=== PATIENT | female | born 1940 | race Caucasian/White ===

== ENCOUNTER 2017-05-07 21:31 | Emergency (ER) | payer MEDICARE, OTHER, SELFPAY ==
[2017-05-07 21:32] VITALS: BP 130/81; PULSE 99; RESP 15; TEMP 36.5; BMI 45.5
--- NOTE | 2017-05-07 21:55 | ED.DCSUM_ITS ---
- ER Visit Summary Date of Service: 05/07/17 Chief Complaint: Cyst on right shoulder History of Present Illness: The patient is a 76 F who has had a known cyst on her right trapezius region for over a year. Tonight she felt that and it was a blood blister on the dome of it. She scraped it and it opened up. She was concerned about infection so she came in. She has not had a fever. There is been no drainage up until tonight. She is scheduled to see a surgeon in the next week to remove these permanently. Physical Examination: Vital signs are reviewed. Patient afebrile. Skin exam reveals a 6 x 3 cm sebaceous cyst in the right trapezius region. There is a small 1 cm area that is ulcerated at the top of this cyst. There is a very small amount of erythema. The entire cyst is mobile. There is no induration. No fluctuance. Test Results: None indicated Emergency Department Course and Treatment: The patient has a known cyst in that area. There is only a small portion that may have been a blood blister area. No drainage is coming from it at this time. I do not feel that incising the entire cyst would be a good idea at this time. I will treat her with antibiotics in case there is a small amount of infection. She will need to follow-up with her surgeon to have these removed permanently. Treatment Plan: [] Disposition: Discharge Impression: Infected sebaceous cyst This note was generated with [employer] dictation software. It may contain incorrect words, spelling, and punctuation that were not noted in review of the chart prior to signing ED Disposition - Plan for ED Patient: Chief Complaint: Abscess Referrals: Alex Vizcarra MD [Primary Care Provider] -
--- NOTE | 2017-05-07 21:55 | ED.DEP ---
ED Disposition - Plan for ED Patient: Disposition: Home or Assisted Living Chief Complaint: Abscess Instructions: ED Cyst Sebaceous Infec Abx Tx Prescriptions: Smz/Tmp Ds [Bactrim Ds] 1 tab PO BID #14 tab Referrals: Alex Vizcarra MD [Primary Care Provider] -
[2017-05-07] MEDS: Smz/Tmp Ds Tablet 1 TABLET PO (22:20)
[2017-05-07 22:24] VITALS: BP 122/90; PULSE 89; RESP 20; O2SAT 94
== END 2017-05-07 22:25 | disposition home or self-care (01) ==
LOC: ED 22:02
PROVIDERS: Emergency Provider Emergency Medicine; Family Provider Family Medicine; PCP Family Medicine
DX: L72.3 Sebaceous cyst (principal); Z79.899 Other long term (current) drug therapy
CPT/HCPCS: 99283

== ENCOUNTER → 2017-05-10 11:30 | Outpatient (CLI) | payer MEDICARE, OTHER, SELFPAY ==
--- NOTE | 2017-05-10 11:10 | MASS_PTH ---
PATIENT: ASHLYN BLOUNT LOC: [facility] U#:[id number] AGE/SX: 84/F ROOM: RE05/10/[address]: Dr. Alberta Escobar MD : [id number] BED: DIS: SPEC #: [id number] RECD: 05/10/17 16:03 STATUS: DOUGLAS AMBROSIO #: [id number] ANDREIA: 05/10/17 11:[address]: Alberta Escobar DEPT: SURGICAL PATHOLOGY RECD BY: Joey Lanier ENTERED: 05/11/17 10:57 SP TYPE: Mass OTHR DR: Dr. Alex Vizcarra MD Tissues: Shoulder, NOS Procedures: Surgery Specimen Level IV Comments: @ Specimen number changed from [id number] to [id number] @ on 05/11/17 at 1125 by ZOEY. HEADER OPERATION: Biopsy mass of right trapezius PRE-OP DIAGNOSIS: History metastatic breast cancer, mass overlying trapezius TISSUE SUBMITTED: Mass of right trapezius MICROSCOPIC DIAGNOSIS Mass of right trapezius, biopsy: Pieces of fibroconnective tissue with necrosis, may represent necrotic tumor cells. No viable tumor is identified. TERRA:laura 05/12/17 COMMENT Clinical correlation and appropriate follow up are necessary, rebiopsy is suggested if clinically indicated. Please make reference to previous specimen ([id number]) right breast, stereotactic core biopsy with diagnosis of invasive ductal carcinoma and ([id number]) right breast tissue, needle localization biopsy with diagnosis of invasive ductal carcinoma. This case is discussed with Dr. Escobar on 05/12/17. MICROSCOPIC DESCRIPTION Slides are reviewed. GROSS DESCRIPTION Received in fixative is one container labeled with the patient's name and designated right shoulder mass. The specimen consists of three irregular fragments of ritchie tissue that in aggregate measure 1 x 0.3 x 0.1 cm. The specimen is totally submitted in one cassette. / AM:laura 05/11/17 TC: Cannot code CPT: 77909
== END ==
PROVIDERS: Family Provider Family Medicine; PCP Family Medicine; Visit Provider Surgery
DX: R22.2 Localized swelling, mass and lump, trunk (principal); Z85.3 Personal history of malignant neoplasm of breast
CPT/HCPCS: 88305

== ENCOUNTER → 2017-05-18 08:55 | Outpatient (CLI) | payer MEDICARE, OTHER, SELFPAY ==
--- NOTE | 2017-05-18 09:01 | ECHOD_ITS ---
Reason For Study: long term care pharmacist drug therapy Procedure This was a 2D Doppler, Color Flow transthoracic echocardiogram. Exam performed in department. Left Ventricle Normal LV size. Mild concentric left ventricular hypertrophy. The estimated ejection fraction is 50 %. Transmitral and pulmonary venous doppler flow suggestive of elevated left atrial pressure. Transmitral diastolic flow velocities suggest mild (stage 1) diastolic dysfunction (reversed pattern). No regional wall motion abnormalities noted. Right Ventricle Normal RV size. Normal systolic function. Atria The left atrium is mildly enlarged. Normal right atrium. Mitral Valve Normal mitral valve. Mild-Moderate (1-2+) eccentric mitral valve insufficiency. Tricuspid Valve Normal tricuspid valve. Mild to moderate (1-2+) tricuspid valve insufficiency. Pulmonary artery systolic pressure is 47 mmHg. Mild pulmonary hypertension. Aortic Valve Normal aortic valve. Pulmonic Valve Normal pulmonic valve. Great Vessels Normal aortic root. The pulmonary artery is normal size. Normal inferior vena cava. Pericardium/Pleural No pericardial effusion. MMode/2D Measurements & Calculations LVIDd: 5.0 cm IVSd: 1.3 cm Ao root diam: 2.6 cm LVIDs: 3.5 cm LVPWd: 1.2 cm LA dimension: 4.2 cm RVDd: 3.3 cm FS: 31.0 % LAV(MOD-bp): 72.0 ml LA A4 area: 22.9 cm2 RA A4 area: 12.4 cm2 LAV(MOD-bp) Indexed: 32.1 ml/m2 LAV(MOD-sp2): 62.6 ml LAV(MOD-sp4): 67.7 ml Time Measurements MV dec time: 0.19 sec Doppler Measurements & Calculations MV E max mars: 89.0 cm/sec Lat Peak E' Mars: 9.4 cm/sec Med Peak E' Mars: 7.4 cm/sec MV A max mars: 111.1 cm/sec E/E' lat: 9.5 E/E' med: 12.1 MV E/A: 0.80 Ao V2 max: 157.1 cm/sec LV V1 max: 110.2 cm/sec PA V2 max: 86.1 cm/sec Ao max P.9 mmHg LV V1 max P.9 mmHg TR max mars: 324.5 cm/sec TR max P.2 mmHg Interpretation Summary Normal LV size. Mild concentric left ventricular hypertrophy. The estimated ejection fraction is 50 %. Pulmonary artery systolic pressure is 47 mmHg. Mild pulmonary hypertension. Compared to prior study, there is no significant change. Ordering Physician: Ruby Saenz Referring Physician: Alex Vizcarra Performed By: Gaye Ramey RDCS, RVT
== END ==
PROVIDERS: Family Provider Family Medicine; PCP Family Medicine; Visit Provider Nurse Practitioner Family
DX: Z51.81 Encounter for therapeutic drug level monitoring (principal); Z79.899 Other long term (current) drug therapy
CPT/HCPCS: 93306

== ENCOUNTER 2017-05-19 09:34 | Outpatient (RCR) | payer MEDICARE, OTHER, SELFPAY ==
[2017-05-19 10:47] VITALS: BP 142/76; PULSE 86; RESP 20; TEMP 37.2; BMI 96.6
--- NOTE | 2017-05-19 18:18 | HP.PCM_ITS ---
(1) Abnormal surgical wound Status: Acute Current Visit: Yes Code(s): T81.9XXA - Unspecified complication of procedure, initial encounter (2) Personal history of malignant neoplasm of breast Status: Acute Current Visit: No Code(s): Z85.3 - Personal history of malignant neoplasm of breast (3) Breast cancer, right breast Status: Chronic Current Visit: No Qualifiers: Code(s): C50.911 - Malignant neoplasm of unspecified site of right female breast (4) Secondary malignant neoplasm of lung Status: Chronic Current Visit: No Qualifiers: Code(s): C78.00 - Secondary malignant neoplasm of unspecified lung History of Present Illness Date of Service: 05/19/17 Chief Complaint: Anticipated poor healing of a surgical wound due to co existing malignancy. History of Wound: Ms. Brasher is a 77yo with H metastatic breast cancer who was referred to the wound center by her general surgeon for continued wound care. On the May, she was seen in the general surgeon's office and plan was for an I&D of a right-sided neck mass which was initially thought to be a sebaceous cyst however it was later considered to be a malignant mass and a biopsy was attempted. Due to the positive malignancy and biopsy, she was referred to the wound center for wound care due to anticipated poor/nonhealing of the wound. She denies any significant discharge from the site. She also denies chills or fever. She is currently undergoing chemotherapy. 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) Peripheral edema (Chronic) Chronic pain (Chronic) Surgical History: cholecystectomy, hysterectomy, - - Right breast lumpectomy, left foot surgery, right knee arthroscopy Allergies/Adverse Reactions: Allergies Latex, Natural Rubber Allergy (Severe, Verified 05/19/17 11:12) Hives POWDER inside the latex that causes reaction, not the latex itself aloe vera Adverse Reaction (Severe, Verified 05/19/17 11:12) Rash egg Adverse Reaction (Severe, Verified 05/19/17 11:12) Diarrhea hydrocodone bitartrate [From Vicodin] Adverse Reaction (Severe, Verified 11:12) Vomiting morphine Adverse Reaction (Severe, Verified 05/19/17 11:12) Other DECREASED BP TAPE Adverse Reaction (Mild, Uncoded 04/13/17 08:47) redness THIN SKIN Home Medications: Ambulatory Orders Medication Instructions Recorded ALPRAZolam [Xanax] 0.125 mg PO BID PRN PRN 08/17/16 Trastuzumab [Herceptin] 150 mg IV Q21D 08/17/16 Acetaminophen [Tylenol] 650 mg PO QHS PRN 11/17/16 Albuterol Inhaler [Ventolin Hfa] 1 puff INHALATION Q4H PRN PRN 01/19/17 Lactobacillus Combination No.4 1 ea PO DAILY 01/19/17 [Probiotic] Multivitamin [Multiple Vitamins] 1 tab PO DAILY 01/19/17 Exemestane [Aromasin] 25 mg PO DAILY #30 tab 01/31/17 Naproxen Sodium [Aleve] 1 tab PO DAILY PRN 03/02/17 Smoking Status: Never smoker Review of Systems Constitutional: Denies: Chills, Fever Eyes: Denies: Pain, Redness HEENT: Denies: Difficulty Hearing Cardiovascular: Denies: Chest Pain, Chest Tightness Respiratory: Denies: Cough, Hemoptysis Gastrointestinal: Denies: Abdominal Pain Skin: Denies: Jaundice - Physical Exam Vital Signs Temp Pulse Resp BP 98.9 F 86 20 H 142/76 H 05/19/17 10:47 05/19/17 10:47 05/19/17 10:47 05/19/17 10:47 General: Alert, Oriented x3, Cooperative, No apparent distress HEENT: Atraumatic, Normocephalic Oral: Moist Mucosa Neck: Supple Lungs: Normal air movement Cardiovascular: Regular rate Abdomen: Soft, Non Tender Extremities: No cyanosis Skin: Ulcer/ Wound - A 6x5cm firm mass in the right upper shoulder/trapezius. Mobile. Surgical wound noted with no significant discharge appreciated. Wound Measurements and Assessment WC - Nurse 1 - General Ulcer Measurement Start: 05/19/17 10:35 Freq: Status: Active Protocol: Activity Type Activity Date Activity User E-Sign Co-Sign Detail Recorded Client Recorded Date Recorded By Document 05/19/17 10:47 DL [id number] 05/19/17 11:07 DL 05/19/17 10:47 Wound Center Nurse 1 [Ulcer Assessment] #1 R Shoulder -Current Size (cm) - Length 0.6 -Current Size (cm) - Width 0.7 -Current Size (cm) - Depth 0.6 -Total Square Cm 0.42 -Photo Taken Yes -Epithelialization None Present -Classification - Thickness Full Thickness without Exposed Support Structure -Exudate Amt Small (1-33%) -Exudate Type Serosanguineous -Wound Margin Distinct, Outline Attached -Granulation Amt Small (1-33%) -Granulation Quality [place] -Necrosis Amt Small (1-33%) -Necrotic Tissue Type Adherent Slough -Structure Exposed N/A -Texture (Ritu-wound Skin Appearance) No Abnormality -Moisture (Ritu-wound Skin Appearance No Abnormality ) -Color (Ritu-wound Skin Appearance) No Abnormality -Temperature (Ritu-wound Skin No Abnormality Appearance) (Pt Warm) -Ulcer Cleansing Rinsed/ Irrigated with Saline -Foul Odor after Cleansing No -Anesthetic Used 4% Lidocaine Solution WC - Nurse 2 - General Ulcer CM Notes Start: 05/19/17 10:35 Freq: Status: Active Protocol: Activity Type Activity Date Activity User E-Sign Co-Sign Detail Recorded Client Recorded Date Recorded By Document 05/19/17 11:41 DV [id number] 05/19/17 11:46 DV 05/19/17 11:41 Wound Center Nurse 2 [Procedure/Treatment] -Time 11:42 -Correct Patient Yes -Correct Side, Site, Position Yes -Procedure Performed No -Post Debridement Size (cm) - Length 0.6 -Post Debridement Size (cm) - Width 0.7 -Post Debridement Size (cm) - Depth 0.6 -Total Square Cm 0.42 -Wound/Ulcer Outcome Not Healed -Ulcer Cleansing Rinsed/ Irrigated with Saline -Foul Odor after Cleansing No -Bioengineered Tissue No -Bleeding Controlled with Pressure -Treatment Response Procedure Tolerated Well [See Physician Procedure note for Specifics] Pain Scale: 0-10 Numeric [Pain] -Is Patient Pain Free? Yes Musculoskeletal: No Muscle Wasting Neurological: Cranial nerves II-XII grossly intact Psych/Mental Status: Normal Affect Debridement Note Post-Debridement Measurements/Treatment WC - Nurse 2 - General Ulcer CM Notes Start: 05/19/17 10:35 Freq: Status: Active Protocol: Activity Type Activity Date Activity User E-Sign Co-Sign Detail Recorded Client Recorded Date Recorded By Document 05/19/17 11:41 DV [id number] 05/19/17 11:46 DV 05/19/17 11:41 Wound Center Nurse 2 #1 R Shoulder -Time 11:42 -Correct Patient Yes -Correct Side, Site, Position Yes -Procedure Performed No -Post Debridement Size (cm) - Length 0.6 -Post Debridement Size (cm) - Width 0.7 -Post Debridement Size (cm) - Depth 0.6 -Total Square Cm 0.42 -Wound/Ulcer Outcome Not Healed -Ulcer Cleansing Rinsed/ Irrigated with Saline -Foul Odor after Cleansing No -Bioengineered Tissue No -Bleeding Controlled with Pressure -Treatment Response Procedure Tolerated Well Pain Scale: 0-10 Numeric Is Patient Pain Free? Yes No debridement was completed today Assessment/Plan Active Problems (Last Reviewed 05/10/17 @ 10:30 by Gwen Walton) Abnormal surgical wound (Acute) Assessment: Metastatic breast cancer. Malignant posterior neck/trapezius months mass s/p biopsy and surgical wound. Anticipated poor/nonhealing surgical wound. Plan: No debridement of wound was done today due to the malignant nature. Also no probing or manipulation of tumor was done. Reviewed general surgeon's note and concern is for none/delayed healing of the wound due to malignancy. Conservative wound care will be done here with daily dressing with Fibracol. If no significant improvement with traditional wound therapies, will consider HBO/skin substitutes. Increase protein in diet/protein supplements. Follow-up in 1 week. This note was generated with [employer] dictation software. It may contain incorrect words, spelling, and punctuation that were not noted in checking the note before signing.
== END 2017-06-04 23:59 ==
LOC: WC 09:34
PROVIDERS: Family Provider Family Medicine; PCP Family Medicine; Visit Provider Internal Medicine
DX: T81.89XA Other complications of procedures, not elsewhere classified, initial encounter (principal); Z85.3 Personal history of malignant neoplasm of breast; C78.00 Secondary malignant neoplasm of unspecified lung; G89.29 Other chronic pain; Z79.899 Other long term (current) drug therapy
CPT/HCPCS: 99213; G0463

== ENCOUNTER → 2017-06-09 09:48 | Outpatient (CLI) | payer MEDICARE, OTHER, SELFPAY ==
--- NOTE | 2017-06-09 09:49 | CT_ITS ---
STUDY: CT CHEST WITH CONTRAST REASON FOR EXAM: Female, 77 years old. History of B cell lymphoma, and metastatic disease. Reevaluation. RADIATION DOSAGE (If Supplied By Facility): CTDIvol = ( 21.09 ) mGy, DLP = ( 2183.95 ) mGycm TECHNIQUE: Transaxial imaging was performed following intravenous administration of 100CC ml of Isovue 300 contrast material. Individualized dose optimization techniques were used for this CT. COMPARISON: 01/14/2017 FINDINGS: Stable heterogeneous thyroid. Lungs are adequately inflated. Increased size of all pulmonary nodules seen within the left and right lung. Increased size of left upper lobe nodule, now measuring 2 x 1.2 cm. Increased size of right middle lobe nodule, now measuring 2 x 1.8 cm. No acute airspace disease is noted. Increased size of right lower lobe nodules. Increased size of mass posterior to the heart in the medial left lower lobe. Normal heart and pericardium. Normal mediastinum. Normal hilar regions. Normal enhanced pulmonary arteries. Normal aorta arch and descending thoracic aorta. There are multi-level degenerative changes of the thoracic spine. Increased size of spiculated right breast mass now measuring 3.[address]/Chest WITH Contrast IMPRESSION: Increased size of all pulmonary nodules within the chest suggesting worsening metastatic disease. Increased size of mass behind the heart in the medial left lower lobe. Increased size of right breast mass with spiculation. No acute airspace disease. Electronically Signed: Moises Maria DO at 10:26 EDT Tel , Service support ,
--- NOTE | 2017-06-09 09:49 | CT_ITS ---
STUDY: CT ABDOMEN WITH CONTRAST REASON FOR EXAM: Female, 77 years old. History of B cell lymphoma. Reevaluation. RADIATION DOSAGE (If Supplied By Facility): CTDIvol = ( 21.09 ) mGy, DLP = ( 2183.95 ) mGycm TECHNIQUE: Transaxial images were obtained post I.V. administration of 100CC ml of Isovue 300 contrast, and without oral contrast. Sagittal and coronal images were reconstructed. Individualized dose optimization techniques were used for this CT. COMPARISON: 01/14/2017 FINDINGS: Soft tissue nodule spiculation in the anterior right lobe measuring 1.7 x 1.8 cm. Multiple other right-sided nodules are noted. Increased size of mass posterior to the level of the heart,, likely from the esophagus measuring 7.3 x 4.7 cm. Stable hypodense nonenhancing cyst in the posterior right lobe liver, otherwise liver is within normal limits. There are surgical clips in the gallbladder fossa consistent with a prior cholecystectomy. Normal spleen. Normal pancreas. Normal bilateral adrenal glands. Normal right kidney. Normal left kidney. Visualized small and large bowel is within normal limits. Normal abdominal aorta. Normal inferior vena cava. Normal retroperitoneum. Normal abdominal wall. There are diffuse degenerative changes of the visualized lumbar spine. CT/Abdomen WITH IV Contrast IMPRESSION: 1. Multiple right lower lobe pulmonary nodules, suspicious for metastatic disease 2. Increased size of mass in the medial aspect of the left lower lobe, probably emanating from the esophageal wall. 3. Visualized upper abdomen is within normal limits otherwise. Electronically Signed: Moises Maria DO at 10:23 EDT Tel , Service support ,
--- NOTE | 2017-06-09 09:50 | CT_ITS ---
STUDY: CT SOFT TISSUE NECK WITH CONTRAST REASON FOR EXAM: Female, 77 years old. MULTIPLE POST NECK MASS -- HX-LARGE B CELL LYMPHOMA,LUNG METS,BREAST -- CURRENTLY ON MAINTENANCE CHEMO -- SURG-cholecystectomy, hysterectomy, right lumpectomy, x 3, appendectomy-. RADIATION DOSAGE (If Supplied By Facility): CTDIvol = ( 21.09 ) mGy, DLP = ( 2183.95 ) mGycm TECHNIQUE: The patient was scanned in a multi-detector CT scanner. High resolution transaxial imaging was performed following intravenous administration of 100CC ml of Isovue 300 contrast material. Sagittal and coronal images were reconstructed. Individualized dose optimization techniques were used for this CT. COMPARISON: PET scan dated January 14, 2017 FINDINGS: Normal bilateral parotid glands. Normal bilateral link trainer maintenance man spaces. Normal bilateral parapharyngeal spaces. Normal bilateral carotid spaces. Normal bilateral sublingual and submandibular glands and spaces. Normal visualized nasopharynx. Normal retropharyngeal space. Normal perivertebral space. Normal visualized bilateral faucial tonsils. The visualized tongue, tongue base and oropharynx are normal. The visualized cervical lymph nodes (levels I-) are within normal size limits, and maintain normal morphology. There is no demonstrated solid or cystic mass lesion. There is no abnormal contrast enhancement. Normal epiglottis, bilateral vallecula and hypopharynx. The pre-epiglottic and paraglottic adipose spaces are normal. Normal visualized bilateral piriform sinuses, aryepiglottic folds, vocal cords, and arytenoid-cricoid articulations. Normal subglottic trachea. There are bilateral thyroid nodules. Normal visualized pulmonary apices. There is multilevel degenerative changes of the cervical spine. There are 2 posterior lower neck soft tissue masses measuring 4.1 x 4.3 and 3.5 x 2.7 cm. Previously there was only one 2.6 cm nodule in this region. CT/Soft Tissue Neck WITH Contrast IMPRESSION: Interval increase of posterior lower neck soft tissue masses. Electronically Signed: Steff Henry MD at 8:02 EDT Tel , Service support ,
== END ==
PROVIDERS: Family Provider Family Medicine; PCP Family Medicine; Visit Provider Internal Medicine Medical Oncology
DX: C50.911 Malignant neoplasm of unspecified site of right female breast (principal); C78.00 Secondary malignant neoplasm of unspecified lung; C85.90 Non-Hodgkin lymphoma, unspecified, unspecified site
CPT/HCPCS: 70491; 71260; 74160; Q9967

== ENCOUNTER → 2017-06-16 07:17 | Outpatient (CLI) | payer MEDICARE, OTHER, SELFPAY ==
--- NOTE | 2017-06-16 07:22 | CT_ITS ---
STUDY: CT BRAIN WITH AND WITHOUT CONTRAST REASON FOR EXAM: Female, 77 years old. New onset of right arm numbness and weakness. The patient has a history of breast cancer and large B-cell lymphoma. RADIATION DOSAGE (If Supplied By Facility): CTDIvol = ( 44.99 ) mGy, DLP = ( 1479.73 ) mGycm TECHNIQUE: Transaxial CT imaging of the brain was performed pre and post contrast administration. The examination was performed with intravenous administration of 50mL ml of Isovue 370 contrast material. Individualized dose optimization techniques were used for this CT. COMPARISON: None. FINDINGS: Normal soft tissue structures. Normal calvarium. Normal size ventricles and extra-axial spaces for the patient's age. There is a 3.3 cm x 3.5 cm x 3.4 cm enhancing mass in the posterior left parietal lobe adjacent to the vertex. There is evidence of surrounding vasogenic edema with mass effect and compression of the posterior aspect of the left lateral ventricle. This is suggestive of a metastatic deposit. Normal basal ganglia and thalami. Normal brainstem. Normal cerebellum. There is no intracranial hemorrhage. There are no findings of an acute ischemic infarction. Atherosclerotic calcification of the vertebral arteries and cavernous portions of the internal carotid arteries bilaterally. Normal visualized paranasal sinuses. CT/Brain/Head W/WO Contrast IMPRESSION: 3.3 cm x 3.5 cm x 3.4 cm enhancing mass in the posterior left parietal lobe adjacent to the vertex with surrounding vasogenic edema. There is also evidence of a surrounding mass effect on the ipsilateral left ventricle. A metastatic deposit should be ruled out. Electronically Signed: Santos Ibarra MD at 8:55 EDT Tel [phone], Service support ,
== END ==
PROVIDERS: Family Provider Family Medicine; PCP Family Medicine; Visit Provider Internal Medicine Medical Oncology
DX: C85.90 Non-Hodgkin lymphoma, unspecified, unspecified site (principal); C50.911 Malignant neoplasm of unspecified site of right female breast; C78.00 Secondary malignant neoplasm of unspecified lung
CPT/HCPCS: 70470; Q9967

== ENCOUNTER → 2017-06-20 08:02 | Outpatient (CLI) | payer MEDICARE, OTHER, SELFPAY ==
--- NOTE | 2017-06-20 08:12 | MRI_ITS ---
STUDY: MRI BRAIN WITH AND WITHOUT CONTRAST REASON FOR EXAM: Female, 77 years old. malignant neoplasm of brain,breast ca, B cell lymphoma; dizziness, rt arm weakness, difficulty writing. TECHNIQUE: Standardized multiplanar fat and water weighted pulse sequences were obtained. 10 ml of Gadavist contrast material was administered intravenously for the contrast portion of the examination. COMPARISON: CT of the head dated June 16, 2017 FINDINGS: There is 4.0 x 3.5 x 3.2 cm extra-axial enhancing mass along the high left parietal convexity with mass effect on the underlying brain parenchyma and vasogenic edema. There is mild compression of the lateral ventricle. Normal bilateral basal ganglia. Normal thalami. There is no extra-axial fluid accumulation. Normal flow voids within the major intracranial circulation suggesting patency by spin echo criteria. Normal sella turcica, pituitary gland, infundibular stalk, optic chiasm and hypothalamus. Normal tectal plate and pineal gland. Normal midbrain, chance and medulla. Normal cerebellum. Normal basal cisterns. Normal bilateral temporal bones. Normal bilateral internal auditory canals. MRI/Brain W/WO Contrast IMPRESSION: 4 cm left parietal extra-axial mass with edema and mass effect. Leading differential consideration are metastatic disease and atypical meningioma. Electronically Signed: Steff Henry MD at 12:53 EDT Tel , Service support ,
== END ==
PROVIDERS: Family Provider Family Medicine; PCP Family Medicine; Visit Provider Internal Medicine Medical Oncology
DX: C79.31 Secondary malignant neoplasm of brain (principal)
CPT/HCPCS: 70553; A9585

== ENCOUNTER → 2017-09-14 12:20 | Outpatient (CLI) | payer MEDICARE, OTHER, SELFPAY ==
[2017-06-21 09:20] VITALS: BMI 42.3
--- NOTE | 2017-09-14 12:26 | RAD_ITS ---
STUDY: X-RAY CHEST REASON FOR EXAM: Female, 77 years old. Shortness of breath TECHNIQUE: Frontal and lateral views of the chest. COMPARISON: January 06, 2017 FINDINGS: Increasing nodular density left upper lobe and left lower lobe. There is no demonstrated pleural abnormality. Normal size heart. Normal mediastinum and asim. Normal visualized pulmonary arteries. Normal visualized aortic arch and descending thoracic aorta. Normal visualized thoracic spine. Normal visualized ribs, clavicles, and shoulders. There is no demonstrated abnormality of the visualized soft tissue structures of the upper abdomen. RAD/Chest PA and Lateral IMPRESSION: Increasing nodular densities consistent with metastatic disease. Electronically Signed: Cristo Perez MD at 0:57 EDT , Service support ,
[2017-09-14 14:27] LABS: Hematocrit 27.7 % (37-47); Mean Corp Hgb Conc 32.5 g/gl (32-36); Mean Corpuscular Hgb 37.5 pg (27.0-32.0); Mean Corpuscular Volume 115.4 fL (81-99); Mean Platelet Vol. 11.8 fl (6.2-12.0); Platelet Count 268 K/mm3 (150-450); RBC Distribution Width CV 16.4 % (11.6-14.6); White Blood Count 2.3 K/mm3 (4.4-11.0)
[2017-09-14 14:31] LABS: Differential Indicated MANUAL DIFF; POSITIVE COUNT YES; POSITIVE DIFFERENTIAL YES; POSITIVE MORPHOLOGY YES
[2017-09-14 14:35] LABS: Anion Gap 9 (5-15); BUN 11 mg/dL (7-18); BUN/Creat Ratio 19.2 RATIO (10-20); Calcium,Total 9.3 mg/dL (8.5-10.1); Chloride 106 mmol/L (98-107); Creatinine, Serum 0.57 mg/dL (0.55-1.02); EST Glomerular Filtration Rate 109 mL/min (>60); Est Glom Filt Rate - Afr Amer 132 mL/min (>60); Glucose 99 mg/dL (74-106); Potassium 3.8 mmol/L (3.5-5.1); Sodium Level 139 mmol/L (136-145)
[2017-09-14 14:59] LABS: Metamyelocyte 1 % (0-1); Myelocyte 4 (0-0); Neutrophil-Segmented 24 % (47-70); Promyelocyte 2 (0-0); Total Cells Counted 100 (MANUAL DIFF)
[2017-09-14 15:00] LABS: Anisocytosis 1+; Eosinophil 1 % (0-5); Lymphocyte 58 % (19-41); Monocyte 10 % (0-10); Platelet Estimate ADEQUATE (ADEQ)
[2017-09-14 15:08] LABS: Absolute Lymphocyte Count 1.33 X10^3/ul (0.83-4.51); Absolute Neutrophil Count 0.6 X10^3/uL (2.0-7.7)
[2017-09-16 10:41] LABS: Pathologist Review Reviewed
== END ==
PROVIDERS: Family Provider Family Medicine; PCP Family Medicine; Visit Provider Family Medicine
DX: D64.9 Anemia, unspecified (principal); R06.02 Shortness of breath
CPT/HCPCS: 36415; 71046; 80048; 85025

== ENCOUNTER → 2017-09-23 09:58 | Outpatient (CLI) | payer MEDICARE, OTHER, SELFPAY ==
[2017-06-21 09:20] VITALS: BMI 42.3
--- NOTE | 2017-09-23 10:04 | ECHOD_ITS ---
Reason For Study: SOB, care home med use Procedure This was a 2D Doppler, Color Flow transthoracic echocardiogram. Exam performed in department. Left Ventricle Normal size and thickness. The estimated ejection fraction is 65 %. Normal diastology for age. No regional wall motion abnormalities noted. Right Ventricle Normal size and thickness. Normal systolic function. Atria Normal left atrium. Normal right atrium. Normal atrial septum. Mitral Valve The mitral valve is structurally normal. No prolapse or stenosis seen. Trivial mitral valve insufficiency. Tricuspid Valve Normal tricuspid valve. Trivial tricuspid valve insufficiency. Right ventricular systolic pressure estimated to be 31 mmHg. Aortic Valve Normal aortic valve. Trisinus/trileaflet aortic valve. Pulmonic Valve The pulmonic valve is not well visualized. Great Vessels Normal aortic root. Normal arch. Normal inferior vena cava. Inferior vena cava collapse with sniff. Pericardium/Pleural No pericardial effusion. MMode/2D Measurements & Calculations LVIDd: 4.2 cm IVSd: 1.3 cm LVOT diam: 2.0 cm LVIDs: 2.9 cm LVPWd: 1.1 cm LVOT area: 3.1 cm2 RVDd: 3.8 cm FS: 30.6 % Ao root diam: 3.0 cm LAV(MOD-bp): 55.3 ml LVAd ap4: 31.6 cm2 LA dimension: 3.1 cm LAV(MOD-bp) Indexed: 28.3 ml/m2 EDV(MOD-sp4): 105.2 ml LAV(MOD-sp2): 37.6 ml EDV(sp4-el): 110.1 ml LAV(MOD-sp4): 63.0 ml LVAs ap4: 20.1 cm2 ESV(MOD-sp4): 52.5 ml ESV(sp4-el): 51.3 ml EF(MOD-sp4): 50.1 % EF(sp4-el): 53.4 % SV(MOD-sp4): 52.7 ml SV(sp4-el): 58.8 ml LA A4 area: 21.6 cm2 RA A4 area: 16.4 cm2 Doppler Measurements & Calculations Lat Peak E' Mars: 12.0 cm/sec Ao V2 max: 230.1 cm/sec LV V1 max: 170.1 cm/sec Ao max P.2 mmHg LV V1 max P.6 mmHg Ao V2 mean: 148.4 cm/sec LV V1 mean P.3 mmHg Ao mean P.0 mmHg LV V1 mean: 107.1 cm/sec Ao V2 VTI: 37.1 cm LV V1 VTI: 28.3 cm GEORGE(I,D): 2.4 cm2 GEORGE(V,D): 2.3 cm2 SV(LVOT): 87.5 ml PA V2 max: 122.1 cm/sec TR max mars: 253.6 cm/sec TR max P.7 mmHg Interpretation Summary The estimated ejection fraction is 65 %. Normal diastology for age. Trivial mitral valve insufficiency. Right ventricular systolic pressure estimated to be 31 mmHg. Compared to echo report dated 05/18/2017, LV function has improved from 50% to 65%, and RVSP has imiproved from 47 go 31 mm Hg. The study was technically difficult. Ordering Physician: Ciaran Brock Referring Physician: Ciaran Brock Performed By: Italo Shaw RCS
[2017-09-23 11:19] VITALS: PULSE 105; PULSE 109; PULSE 123; PULSE 124; PULSE 125; PULSE 131; PULSE 132; O2SAT 95; O2SAT 96; O2SAT 97; O2SAT 98
--- NOTE | 2017-09-23 11:23 | CPS ---
Patient stated that this was a better breathing day for her. She seemed pretty short of breath when she stopped to take breaks but described it as moderate compared to how short of breath she is on most days.
--- NOTE | 2017-09-24 07:42 | WT_ITS ---
PSN 6 Minute Walk Test - 6 Minute Walk Test 6 Minute Walk Test: 6 Minute Walk Test PSN:6-Minute Walk Test Start: 09/23/17 11: 18 Freq: Status: Active Protocol: [id number] Document 09/23/17 11:19 JEN (Rec: 09/23/17 11:26 JEN [id number]) 6 Minute Walk Test Date Performed 09/23/17 Time Performed 11:00 Height 5 ft 1 in Weight: 223 lb Weight in Pounds 223.[address]: Ciaran Brock Assistive device used: Walker Pre-test Oxygen Delivery Method Room Air Pulse Ox (%) 95 Pulse Rate (60-100 beats/min) 105 H Dyspnea Ronnie Scale (0-10) 0 Exertion Ronnie Scale (6-20) 6 1st minute Oxygen Delivery Method Room Air Pulse Ox (%) 97 Pulse Rate (60-100 beats/min) 123 H 2nd minute Oxygen Delivery Method Room Air Pulse Ox (%) 97 Pulse Rate (60-100 beats/min) 131 H Dyspnea Ronnie Scale (0-10) 3 Number of Rests Taken 1 3rd minute Oxygen Delivery Method Room Air Pulse Ox (%) 95 Pulse Rate (60-100 beats/min) 124 H 4th minute Oxygen Delivery Method Room Air Pulse Ox (%) 95 Pulse Rate (60-100 beats/min) 125 H 5th minute Oxygen Delivery Method Room Air Pulse Ox (%) 95 Pulse Rate (60-100 beats/min) 131 H Number of Rests Taken 1 6th minute Oxygen Delivery Method Room Air Pulse Ox (%) 96 Pulse Rate (60-100 beats/min) 132 H Dyspnea Ronnie Scale (0-10) 3 Exertion Ronnie Scale (6-20) 14 Post-test Oxygen Delivery Method Room Air Pulse Ox (%) 98 Pulse Rate (60-100 beats/min) 109 H Full Laps Walked 6 Partial Lap, Number of Tiles Walked 5 Total Distance Walked (ft) 359 09/23/17 11:23 Cardiopulmonary Services by Barbara Garg Patient stated that this was a better breathing day for her. She seemed pretty short of breath when she stopped to take breaks but described it as moderate compared to how short of breath she is on most days. Initialized on 09/23/17 11:23 - END OF NOTE - Interpretation Interpretation: The patient ambulated 359 feet over the course of 6 minutes beginning on room air with the use of a walker. Pretesting oxygen saturation was noted to be 95% on room air. With ambulation, the virgilio oxygen saturation was 95%. The patient did become progressively tachycardic with exertion. There was evidence of impaired walk distance without significant exertional oxygen desaturation. - Recommendations Recommendations: There is no indication for the use of supplemental oxygen at this time.
== END ==
PROVIDERS: Family Provider Family Medicine; PCP Family Medicine; Visit Provider Internal Medicine Medical Oncology
DX: R06.02 Shortness of breath (principal); C50.911 Malignant neoplasm of unspecified site of right female breast; C78.00 Secondary malignant neoplasm of unspecified lung; C79.31 Secondary malignant neoplasm of brain
CPT/HCPCS: 93306; 94618

== ENCOUNTER → 2017-10-11 08:30 | Outpatient (CLI) | payer MEDICARE, OTHER, SELFPAY ==
[2017-06-21 09:20] VITALS: BMI 42.3
== END ==
PROVIDERS: Family Provider Family Medicine; PCP Family Medicine; Visit Provider Surgery
DX: Z53.9 Procedure and treatment not carried out, unspecified reason (principal)

== ENCOUNTER 2017-10-23 10:45 | Inpatient (IN) | payer MEDICARE, OTHER, SELFPAY ==
[2017-06-21 09:20] VITALS: BMI 42.3
[2017-10-23] VITALS (21 sets, daily range): BP systolic 114–147; BP diastolic 43–86; PULSE 100–141; RESP 10–34; TEMP 36.7–37.6; O2SAT 89–100; BMI 44.6
[2017-10-23] MEDS: oxyCODONE 5 MG Tablet PO ×3 (11:27→18:52)
[2017-10-23 11:32] LABS: Hematocrit 25.3 % (37-47); Hemoglobin 8.2 g/dl (12.0-15.0); Mean Corp Hgb Conc 32.4 g/gl (32-36); Mean Corpuscular Hgb 36.8 pg (27.0-32.0); Mean Corpuscular Volume 113.5 fL (81-99); Mean Platelet Vol. 12.1 fl (6.2-12.0); Platelet Count 302 K/mm3 (150-450); RBC Distribution Width CV 16.6 % (11.6-14.6); RBC Distribution Width SD 67.5 fl (35.1-43.9); Red Blood Count 2.23 M/mm3 (4.2-5.4); White Blood Count 3.4 K/mm3 (4.4-11.0)
[2017-10-23 11:33] LABS: Differential Indicated MANUAL DIFF; International Normalized Ratio 1.5; POSITIVE COUNT NO; POSITIVE DIFFERENTIAL NO; POSITIVE MORPHOLOGY YES; Partial Thromboplast Time 28.1 Seconds (24.1-36.2); Prothrombin Time (Protime)PT. 17.9 SECONDS (11.7-14.9)
[2017-10-23 11:41] LABS: AST(SGOT) 165 U/L (15-37); Alanine Aminotransfer ALT/SGPT 472 U/L (13-56); Albumin, Serum 3.6 g/dL (3.2-5.0); Alkaline Phosphatase 47 U/L (45-117); Anion Gap 6 (5-15); BUN 16 mg/dL (7-18); BUN/Creat Ratio 23.3 RATIO (10-20); Calcium,Total 8.8 mg/dL (8.5-10.1); Chloride 103 mmol/L (98-107); Creatinine, Serum 0.69 mg/dL (0.55-1.02); EST Glomerular Filtration Rate 89 mL/min (>60); Est Glom Filt Rate - Afr Amer 107 mL/min (>60); Estimated Creatinine Clearance 34.91 ml/min; Globulin 3.6 g/dL (2.2-4.2); Glucose 151 mg/dL (74-106); Potassium 3.4 mmol/L (3.5-5.1); Protein, Total 7.2 g/dL (6.4-8.2); Sodium Level 138 mmol/L (136-145)
[2017-10-23 11:52] LABS: Blast 1 % (0-0); Lymphocyte 43 % (19-41); Metamyelocyte 4 % (0-1); Myelocyte 3 (0-0); Neutrophil-Band 4 % (0-5); Neutrophil-Segmented 45 % (47-70); Platelet Estimate ADEQUATE (ADEQ); Total Cells Counted 100 (MANUAL DIFF)
[2017-10-23 11:53] LABS: Anisocytosis 2+; Hypochromasia 2+; Platelet Morphology LARGE
[2017-10-23 11:54] LABS: Absolute Neutrophil Count 1.7 X10^3/uL (2.0-7.7)
--- NOTE | 2017-10-23 11:54 | CT_ITS ---
STUDY: CTA CHEST REASON FOR EXAM: Female, 77 years old. Breast CA with metastases. RADIATION DOSAGE (If Supplied By Facility): CTDIvol = ( 20.84 ) mGy, DLP = ( 2070.15 ) mGycm TECHNIQUE: The examination was performed with the intravenous administration of 100 ml of Isovue 370 contrast material. Post-processing of the angiographic images was performed, with multiplanar reformation and 3D reconstruction. Individualized dose optimization techniques were used for this CT. COMPARISON: 06/09/2017. FINDINGS: CTA CHEST: There is an 8 mm hypodense lesion in the left lobe of the thyroid gland, unchanged from the prior study. The heart and pericardium are normal. The aorta is normal in caliber, with no aneurysm or dissection. There is no mediastinal mass, adenopathy, or hematoma. There is no pleural effusion. There are multiple pulmonary masses, the largest, in the left lower lobe, measuring 8.3 x 5.4 cm. This lesion is increased in size compared to the prior study. A 2.4 cm lesion in the left upper lobe is increased in size. A 1.6 cm lesion in the right middle lobe appears minimally decreased. A 1.1 cm lesion in the right lower lobe appears minimally decreased. A 2.4 cm lesion in the right as ago esophageal recess on image 48 has increased. There is a 2.2 x 1.9 cm nodule in the right posterior soft tissues on series 4 image 80 which appears new compared to the prior study. There is a 2.8 cm nodule in the left flank on image 88 which is increased. A 2.4 cm nodule in the left dorsal soft tissues on image 87 is increased. There is a 1.7 cm soft tissue nodule in the left breast on image 68, markedly increased compared to the prior study. There is a 2.5 cm nodule superior to the manubrium, new or significantly increased. No destructive bone lesion is seen. CT ABDOMEN PELVIS: There is a 3.3 cm cyst in the posterior segment of the liver. The liver is otherwise unremarkable. Specifically, no evidence of mass. Gallbladder is surgically absent. The spleen, pancreas, adrenal glands, and right kidney are unremarkable. The aorta is normal in caliber. No aneurysm or dissection. There is a 2.2 x 1.5 cm lesion arising from the midpole of the left kidney or possibly retroperitoneal soft tissues. CT density measures 59 Hounsfield units. This is not consistent with a simple cyst, and may represent a complex cyst or solid lesion. The left kidney is otherwise unremarkable. A 1.2 cm soft tissue nodule is noted in the right retroperitoneum, new compared to the prior study. This is concerning for metastatic node. There is no free fluid, free air, or hematoma. Bladder is catheterized and decompressed. There is no bowel obstruction or inflammatory change. Normal appendix. Diverticulosis is noted, with no evidence of acute diverticulitis. No destructive bone lesion. There is a 2.8 cm soft tissue nodule in the left buttock, axial image 76. There is a 4.1 cm mass in the soft tissues of the right hip, image 98. No destructive bone lesion. CT/CTA Chest W/WO Contrast IMPRESSION: 1. Multiple pulmonary metastases, increased in size compared to the prior study. 2. Multiple soft tissue metastases, new or increased compared to the prior study. 3. New right retroperitoneal nodule, presumed metastatic node. 4. New left renal or retroperitoneal lesion, suspicious for metastasis. 5. Stable hepatic cyst. 6. Stable thyroid lesion. Electronically Signed: Coretta Conklin MD at 17:11 EDT Tel , Service support ,
[2017-10-23 12:13] LABS: BNP,B-Type NATRIURETIC PEPTIDE 24.2 pg/mL (0-100)
[2017-10-23 12:25] LABS: Lactic Acid 2.1 mmol/L (0.4-2.0)
--- NOTE | 2017-10-23 12:25 | ED.RN ---
LAB RESULTED LACTIC 2.4, PHYSICIAN NOTIFIED
--- NOTE | 2017-10-23 12:33 | NURSING ---
CPS IN PREVIOUSLY TO ATTEMPT BIPAP AND PT UNABLE TO TOLERATE AND REFUSING. APPROACHED PT WITH NEED TO DO CT CHEST ORDERED BUT PT REFUSING. SAYING I CANT LAY FLAT AT ALL TO GET IN THAT MACHINE PT AND FAMILY AWARE OF REASON WHY DOING TESTING AND THE NEED TO REVISIT CODE STATUS PERHAPS D/T HOW REFUSING TESTS AND UNABLE TO GET CLEAR DIAGNOSTIC. FAMILY TRYING TO TALK WITH PT BUT PT REFUSING ANY SEDATION EVEN PRIOR TO HAVING IT DONE.
[2017-10-23] MEDS: Ipratropium/Albuterol Sulfate 3 ML AMPUL.NEB INHALATION ×2 (13:31→19:46)
[2017-10-23] MEDS: Furosemide 100 MG/10 ML Vial 80 MG IV (13:43)
--- NOTE | 2017-10-23 14:07 | CPS ---
Pt did not tolerate the Bipap mask for more than 5 minutes. Pt then refused to wear it. Dr. Lopez notified.
[2017-10-23] MEDS: LORazepam 2 MG/ML Syringe 1 MG IV (14:55)
[2017-10-23 15:17] LABS: Reflex Lactate? Y
--- NOTE | 2017-10-23 15:44 | PCM.HP.STD ---
Problem List (1) Acute respiratory failure with hypoxia Status: Acute (2) Lactic acidosis Status: Acute (3) Elevated liver enzymes Status: Acute (4) Hypokalemia Status: Acute (5) Chronic leukopenia Status: Chronic (6) Chronic anemia Status: Chronic (7) Breast cancer, right breast Status: Chronic Qualifiers: Breast location: unspecified site of breast Estrogen receptor status: unspecified Patient sex: female Qualified Code(s): C50.911 - Malignant neoplasm of unspecified site of right female breast (8) Secondary malignant neoplasm of lung Status: Chronic Qualifiers: Laterality: unspecified laterality Qualified Code(s): C78.00 - Secondary malignant neoplasm of unspecified lung (9) 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 Qualifiers: Laterality: right Qualified Code(s): C50.919 - Malignant neoplasm of unspecified site of unspecified female breast; C77.1 - Secondary and unspecified malignant neoplasm of intrathoracic lymph nodes (10) ER+ (estrogen receptor positive status) Status: Chronic (11) Brain metastasis Status: Chronic History of Present Illness Date of Admission: 10/23/17 Chief Complaint: Progressively worsening dyspnea, LE Edema The patient is a 77 y/o F w/ PMHx: Anxiety, Morbid Obesity, Chronic Leukopenia, Thrombocytopenia and Anemia (AOCD), Grade III Ductal Carcinoma R Breast (T1c, N0, Mx), ER positive, Her2 equivocal FISH s/p lumpectomy 06/12/2012 initiated on anastrazole, 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 Dx 09/26/12 s/p R-EPOCH x 6 cycles at [facility], 2015 CT scans obtained for lymphoma surveillance revealed soft tissue mass L pulmonary ligament, confirmed PET w/ [facility] referral for EUS Bx following which the patient was lost to follow-up until 10/2015 w/ onset R Breast mass w/ Bx Adenocarcinoma, ER positive and HER2 gretchen negative w/ Bx positive for metastatic adenocarcinoma, ER positive, DC negative, HER2 negative-consistent with breast primary w/ discontinuation of Anastrazole and Faslodex and Ibrance started w/ event discontinuation w/ progressive disease w/ start on Herceptin w/ Her2 positive by IHC w/ onset R arm weakness w/ CT head w/ L brain mass noted 06/2017 and follow-up MRI brain w/ solitary brain lesion noted w/ [facility] craniotomy 07/05/2017 w/ Bx Metastatic Breast cancer, ER/DC positive, Her2 negative eventually transitioned to tamoxifene and megace secondary to inability to start chemotherapy w/ difficulties in care since secondary to patient refusal to obtain imaging studies and bone marrow biopsy who now presents to the [facility] ED on 10/23/17 w/ onset of progressively worsening dyspnea, orthopnea and concurrent onset BL LE edema secondary to having to sleep upright in her chair with no severe cough, fever or chills x 3 weeks. In the ED evaluation difficult secondary to patient initial refusal to have CT imaging of her chest for concern for worsening metastatic disease versus pulmonary embolism. Discussed w/ patient oncologist current status and recommended offer of sedation and scan in addition to mention that she was cleared per Neurosurgery OSH for anticoagulation after 6 weeks from operative intervention. In the ED work-up included show vital signs T 98.1, heart rate 129, BP 120/70, respiratory rate 34, 100% on nonrebreather with ongoing tachycardia and tachypnea as well as conversational dyspnea with ED recommendation for BiPAP placement however patient avidly refused, CBC with WBC 3.4, hemoglobin 8.2, platelet 302 with blast cells present as well as increased lymphocytes, metamyelocytes and myelocytes were reviewed with oncology, PT 17.9, INR 1.5, CMP with potassium 3.4, glucose 151, lactic acid 2.1 with repeat 1.2, AST/ALT 165/472, pontine less than 0.015, BNP 24.2, x-ray very limited secondary to motion artifact with prominent pulmonary vasculature with no evidence of focal consolidation, nodular density overlying the left lateral lung concerning for metastatic disease as previously noted. Discussed patient case with patient, family and ED physician and eventual allowance of sedation with etomidate in the ED and CT scan chest to be obtained. Given patient reticence discussed with the ED physician and will also obtain CT head and abdomen and pelvis. 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 (Chronic) Peripheral edema (Chronic) Chronic pain (Chronic) ER+ (estrogen receptor positive status) (Chronic) Multiple skin nodules (Chronic) Brain metastasis (Chronic) Medical History: Medical History (Last Reviewed 10/03/17 @ 14:42 by Marisa Sanders) Anxiety F41.9 Arthritis M19.90 Back problem M53.9 BACK PROBLEM, THORACIC REGION Breast cancer C50.919 LUNG CANCER Breast lump in female N63.0 RIGHT BREAST GERD (gastroesophageal reflux disease) K21.9 History of swelling of feet Z87.39 SWELLING OF FEET AND LEGS ( BILATERAL ) Malignant neoplasm of unspecified site of right female breast C50.911 Neck pain M54.2 Non-Hodgkin lymphoma C85.90 Sebaceous cyst L72.3 Secondary malignant neoplasm of unspecified lung C78.00 Thrombocytopenia D69.6 brain surgery tumor removal Jul 05 2017 [facility] Allergies Latex, Natural Rubber Allergy (Severe, Verified 10/03/17 14:43) Hives POWDER inside the latex that causes reaction, not the latex itself aloe vera Adverse Reaction (Severe, Verified 10/03/17 14:43) Rash egg Adverse Reaction (Severe, Verified 10/03/17 14:43) Diarrhea hydrocodone bitartrate [From Vicodin] Adverse Reaction (Severe, Verified 10/03/17 14:43) Vomiting morphine Adverse Reaction (Severe, Verified 10/03/17 14:43) Other DECREASED BP TAPE Adverse Reaction (Mild, Uncoded 10/03/17 14:43) redness THIN SKIN Home Medications: Ambulatory Orders Medication Instructions Recorded Acetaminophen [Tylenol] 650 mg PO QHS PRN 11/17/16 Albuterol Inhaler [Ventolin Hfa] 1 puff INHALATION Q4H PRN PRN 01/19/17 Albuterol Aerosols [Ventolin 2.5 mg INHALATION Q6H PRN PRN 09/08/17 Aerosols] Multivitamin [Multiple Vitamins] 1 each PO DAILY 09/08/17 Clonazepam [Klonopin] 0.5 mg PO BID 10/03/17 Megestrol [Megace] 40 mg PO 4X/DAY #160 tab 10/03/17 Tamoxifen Citrate [Nolvadex] 20 mg PO BID #60 tab 10/03/17 Furosemide [Lasix] 20 mg PO DAILY 10/23/17 Surgical History: Surgical History (Last Reviewed 10/03/17 @ 14:42 by Marisa Sanders) H/O arthroscopy of right knee Z98.890 H/O: hysterectomy Z90.710 History of section Z98.891 3 c-sections History of lumpectomy of right breast Z98.890 RIGHT BREAST LUMPECTOMY WITH NIPPLE/ ARELOAR Hx of cholecystectomy Z90.49 Status post left foot surgery Z98.890 Surgical History: cholecystectomy, hysterectomy, - - Right breast lumpectomy, left foot surgery, right knee arthroscopy, craniotomy and tumor resection. 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 Smoking Status: Never smoker Tobacco Use: Non-smoker Alcohol: None Drugs: None - *Family History Maternal Family History: Family History (Last Reviewed 10/03/17 @ 14:42 by Marisa Sanders) Mother Lung cancer Colon cancer Stomach cancer Father COPD (chronic obstructive pulmonary disease) Sister Breast cancer Brother Heart disease History Items: - - With history of colon cancer, lung cancer and stomach cancer. Paternal Family History: Family History (Last Reviewed 10/03/17 @ 14:42 by Marisa Sanders) Mother Lung cancer Colon cancer Stomach cancer Father COPD (chronic obstructive pulmonary disease) Sister Breast cancer Brother Heart disease History Items: COPD Review of Systems Constitutional: Reports: Anorexia, Malaise, Weakness, Fatigue. Denies: Chills, Fever, Weight Change HEENT: Denies: Head Aches, Sinus Congestion, Sinus Drainage Cardiovascular: Reports: Edema, Orthopnea. Denies: Chest Pain, Heaviness, Light Headedness, Palpitations Respiratory: Reports: Shortness of Breath, Shortness of breath at rest, Shortness of breath upon exertion. Denies: Cough, Sputum production, Wheezing Gastrointestinal: Reports: Nausea. Denies: Abdominal Pain, Vomiting Genitourinary: Denies: Dysuria Musculoskeletal: Reports: Back Pain. Denies: Joint Pain, Joint Tenderness Skin: Denies: Rash, Wounds Neurological: Denies: Numbness, Tingling, Focal weakness Psychiatric: Reports: Anxiety, Depression. Denies: Homicidal Ideations, Suicidal Ideations Hematologic/ Lymphatic: Reports: Anemia, Easy Bruising, Easy Bleeding VTE Information - Inpt Only VTE Present on Admission: No VTE Mechan Device Prophylaxis: SCD's VTE Pharm Prophylaxis ordered?: Yes Patient Problems: Active and Suspected Problems (Last Reviewed 10/03/17 @ 14:42 by Marisa Sanders) Acute respiratory failure with hypoxia (Acute) Lactic acidosis (Acute) Elevated liver enzymes (Acute) Hypokalemia (Acute) Subjective: Seated upright in the ED bed, ongoing increased respiratory rate, conversational dyspnea, accessory muscle usage, anxious with discussions but eventual allowance of sedation for imaging studies. Objective: Physical Examination: General: awake, alert, oriented x 3, intermittently cooperative, seated upright in the ED bed, accessory muscle usage, increased respiratory rate, conversational dyspnea with ongoing respiratory distress although she notes improved from initial presentation and still refusing BiPAP consideration. Skin: normal color, turgor, no icterus, cyanosis. HEENT: AT/NC, EOMI, PERRLA, dry MM, no carotid bruits, unable to discern JVD secondary to habitus with thickened neck. Lungs: Severely diminished BS, > R side to mid posterior field, no marked rales noted, no wheezing or marked rhonchi, poor effort, accessory muscle usage, increased respiratory rate, conversational dyspnea with ongoing respiratory distress. Heart: Tachycardic with regular rhythm; no gallop, rub audible. Abdomen: soft, morbidly obese, NTTP, ND, normal BS, unable to discern HSM secondary to morbidly obese habitus. Extremities: no cyanosis, clubbing, BL LE pedal to distal coburn 2+ edema, painful with palpation of her edema. Neurological: patient awake, alert, oriented x 3; cognitive function intact; pupils equally reactive to light and accomodation; cranial nerves II-XII grossly normal, moving all 4 extremities, strength severely globally decreased secondary to acute presentation. Psychiatric: affect appears fatigued, anxious, no acute evidence of depressive feelings. - Physical Exam Vital Signs Temp Pulse Resp BP Pulse Ox 98.1 F 123 H 24 H 115/53 L 95 10/23/17 10:46 10/23/17 15:05 10/23/17 15:05 10/23/17 15:05 10/23/17 15:05 Oxygen Flow Rate (L/min) 2 Oxygen Delivery Method Nasal Cannula Weight: 228 lb 6.4 oz Body Mass Index (BMI) 44.6 Laboratory Tests Past 24 Hrs 10/23/17 10/23/17 10/23/17 11:15 11:15 11:15 WBC 3.4 L RBC 2.23 L Hgb 8.2 L Hct 25.3 L MCV 113.5 H MCH 36.8 H MCHC 32.4 RDW 16.6 H RDW Differential 67.5 H Plt Count 302 MPV 12.1 H Neut % (Auto) Not Reportable Absolute Neuts (auto) 1.7 L Absolute Lymphs (auto) 1.50 Total Counted 100 Neutrophils % (Manual) 45 L Band Neutrophils % 4 Lymphocytes % (Manual) 43 H Metamyelocytes % 4 H Myelocytes % 3 H Blast Cells % 1 H* Diff Path Review May foll Platelet Estimate ADEQUATE Plt Morphology Comment LARGE Hypochromasia 2+ Anisocytosis 2+ PT 17.9 H INR 1.5 APTT 28.1 Sodium Potassium Chloride Carbon Dioxide Anion Gap BUN Creatinine Estim Creat Clear Calc Est GFR (MDRD) Af Amer Est GFR (MDRD) Non-Af BUN/Creatinine Ratio Glucose Lactic Acid 2.1 H Calcium Total Bilirubin AST ALT Alkaline Phosphatase Troponin I B-Natriuretic Peptide Total Protein Albumin Globulin Albumin/Globulin Ratio 10/23/17 10/23/17 10/23/17 11:15 11:15 15:21 WBC RBC Hgb Hct MCV MCH MCHC RDW RDW Differential Plt Count MPV Neut % (Auto) Absolute Neuts (auto) Absolute Lymphs (auto) Total Counted Neutrophils % (Manual) Band Neutrophils % Lymphocytes % (Manual) Metamyelocytes % Myelocytes % Blast Cells % Diff Path Review Platelet Estimate Plt Morphology Comment Hypochromasia Anisocytosis PT INR APTT Sodium 138 Potassium 3.4 L Chloride 103 Carbon Dioxide 29.0 Anion Gap 6 BUN 16 Creatinine 0.69 Estim Creat Clear Calc 34.91 Est GFR (MDRD) Af Amer 107 Est GFR (MDRD) Non-Af 89 BUN/Creatinine Ratio 23.3 H Glucose 151 H Lactic Acid Pending Calcium 8.8 Total Bilirubin 0.90 AST 165 H ALT 472 H Alkaline Phosphatase 47 Troponin I < 0.015 B-Natriuretic Peptide 24.2 Total Protein 7.2 Albumin 3.6 Globulin 3.6 Albumin/Globulin Ratio 1.0 Assessment/Plan All Active Problems (Last Reviewed 10/03/17 @ 14:42 by Marisa Sanders) Acute respiratory failure with hypoxia (Acute) Lactic acidosis (Acute) Elevated liver enzymes (Acute) Hypokalemia (Acute) Non-Hodgkin lymphoma (Acute) Hypertrophy of breast (Acute) Personal history of malignant neoplasm of breast (Acute) URI (upper respiratory infection) (Acute) Abnormal surgical wound (Acute) Tachycardia (Acute) Macrocytic anemia (Acute) The patient is a 77 y/o F w/ PMHx: Anxiety, Morbid Obesity, Chronic Leukopenia, Thrombocytopenia and Anemia (AOCD), Metastatic Ductal Carcinoma as well as dx 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 (1) Acute Hypoxic Respiratory Failure, Unclear Etiology, Suspect Acute Pulmonary Embolism complicated by Worsening Metastatic Cancer in the Lung: Refusing BIPAP in the ED, awaiting ED sedation with planned CT head, CT A/P and CTPA to further assess for etiology of acute respiratory failure. Will await imaging prior to decision for level of care. If PE presentation would initiate therapeutic lovenox given per discussion with Oncology she has been cleared for anticoagulation if needed although given habitus may be marked dosing needs, maintain on telemetry, cycle cardiac enzymes, hydrate given BNP normal and overload not suspected, consult Dr. Landry/Braxton if appropriate, consult Dr. Brock who has been notified and will see patient in AM. Duonebs, PRN albuterol if able to tolerate. PRN ativan given severity of her anxiety. Encourage consideration BIPAP, may secondary to fatigue require eventual intubation. 09/2017 ECHO w/ EF 65%, normal diastology for age, trivial MV insufficiency, RVSP 31 mmHg. (2) BL LE Edema, Orthopnea: Suspect secondary to primary etiology, #1, possibly worsening progressive metastatic lung cancer versus pulmonary embolism, BNP normal, CXR without marked effusion/congestion, will obtain STAT DVT US BL LE given concern as noted for acute PE, if negative will place snug SANDEEP wraps, elevated BL LE, educated about dependent edema given her transition from bed to chair for sleeping. May need referral to [facility] for her ongoing edema for measure for compression stockings. Will continue her home oral lasix. 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 Dx 09/26/12 s/p R-EPOCH x 6 cycles at [facility], 2015 CT scans obtained for lymphoma surveillance revealed soft tissue mass L pulmonary ligament, confirmed PET w/ [facility] referral for EUS Bx following which the patient was lost to follow-up until 10/2015 w/ onset R Breast mass w/ Bx Adenocarcinoma, ER positive and HER2 gretchen negative w/ Bx positive for metastatic adenocarcinoma, ER positive, DC negative, HER2 negative-consistent with breast primary w/ discontinuation of Anastrazole and Faslodex and Ibrance started w/ event discontinuation w/ progressive disease w/ start on Herceptin w/ Her2 positive by IHC w/ onset R arm weakness w/ CT head w/ L brain mass noted 06/2017 and follow-up MRI brain w/ solitary brain lesion noted w/ [facility] craniotomy 07/05/2017 w/ Bx Metastatic Breast cancer, ER/DC positive, Her2 negative. Mag and phos pending. Dr. Brock aware and will evaluate in AM. Needs BM Bx. (4) Lactic Acidosis, Resolved: Possible secondary to #1, dehydration, unclear specific etiology, ED initial LA 2.1-->repeat 1.2, resolved. (5) Morbid Obesity: Weight loss and lifestyle changes encouraged, nutrition consulted. (6) Anxiety: Will continue home dose klonopin, PRN ativan. (7) CODE status: Patient notes living will in place. She notes her son and daughter are her HCPOA. Discussed CODE status at length including difference between FULL code, DNR-CCA and DNR-CC status. Following discussions about the differences in these status, requested Full Code status. Advanced Care Planning Face to Face Time: 20 minutes. Code Visit Inpatient E&M: 29369 Init Hosp L3 Procedures: 95824 Advncd Care Plan 30 Min
--- NOTE | 2017-10-23 15:55 | HP.PCM_ITS ---
Problem List (1) Acute respiratory failure with hypoxia Status: Acute (2) Lactic acidosis Status: Acute (3) Elevated liver enzymes Status: Acute (4) Hypokalemia Status: Acute (5) Chronic leukopenia Status: Chronic (6) Chronic anemia Status: Chronic (7) Breast cancer, right breast Status: Chronic Qualifiers: Breast location: unspecified site of breast Estrogen receptor status: unspecified Patient sex: female Qualified Code(s): C50.911 - Malignant neoplasm of unspecified site of right female breast (8) Secondary malignant neoplasm of lung Status: Chronic Qualifiers: Laterality: unspecified laterality Qualified Code(s): C78.00 - Secondary malignant neoplasm of unspecified lung (9) 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 Qualifiers: Laterality: right Qualified Code(s): C50.919 - Malignant neoplasm of unspecified site of unspecified female breast; C77.1 - Secondary and unspecified malignant neoplasm of intrathoracic lymph nodes (10) ER+ (estrogen receptor positive status) Status: Chronic (11) Brain metastasis Status: Chronic History of Present Illness Date of Admission: 10/23/17 Chief Complaint: Progressively worsening dyspnea, LE Edema The patient is a 77 y/o F w/ PMHx: Anxiety, Morbid Obesity, Chronic Leukopenia, Thrombocytopenia and Anemia (AOCD), Grade III Ductal Carcinoma R Breast (T1c, N0 , Mx), ER positive, Her2 equivocal FISH s/p lumpectomy 06/12/2012 initiated on anastrazole, 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 Dx 09/26/12 s/p R- EPOCH x 6 cycles at [facility], 2015 CT scans obtained for lymphoma surveillance revealed soft tissue mass L pulmonary ligament, confirmed PET w/ [facility] referral for EUS Bx following which the patient was lost to follow-up until 10/2015 w/ onset R Breast mass w/ Bx Adenocarcinoma, ER positive and HER2 gretchen negative w/ Bx positive for metastatic adenocarcinoma, ER positive, AZ negative, HER2 negative-consistent with breast primary w/ discontinuation of Anastrazole and Faslodex and Ibrance started w/ event discontinuation w/ progressive disease w/ start on Herceptin w/ Her2 positive by IHC w/ onset R arm weakness w/ CT head w / L brain mass noted 06/2017 and follow-up MRI brain w/ solitary brain lesion noted w/ [facility] craniotomy 07/05/2017 w/ Bx Metastatic Breast cancer, ER/AZ positive , Her2 negative eventually transitioned to tamoxifene and megace secondary to inability to start chemotherapy w/ difficulties in care since secondary to patient refusal to obtain imaging studies and bone marrow biopsy who now presents to the [facility] ED on 10/23/17 w/ onset of progressively worsening dyspnea, orthopnea and concurrent onset BL LE edema secondary to having to sleep upright in her chair with no severe cough, fever or chills x 3 weeks. In the ED evaluation difficult secondary to patient initial refusal to have CT imaging of her chest for concern for worsening metastatic disease versus pulmonary embolism. Discussed w/ patient oncologist current status and recommended offer of sedation and scan in addition to mention that she was cleared per Neurosurgery OSH for anticoagulation after 6 weeks from operative intervention. In the ED work-up included show vital signs T 98.1, heart rate 129, BP 120/70, respiratory rate 34, 100% on nonrebreather with ongoing tachycardia and tachypnea as well as conversational dyspnea with ED recommendation for BiPAP placement however patient avidly refused, CBC with WBC 3.4, hemoglobin 8.2, platelet 302 with blast cells present as well as increased lymphocytes, metamyelocytes and myelocytes were reviewed with oncology, PT 17.9, INR 1.5, CMP with potassium 3.4, glucose 151, lactic acid 2.1 with repeat 1.2, AST/ALT 165/472, pontine less than 0.015, BNP 24.2, x-ray very limited secondary to motion artifact with prominent pulmonary vasculature with no evidence of focal consolidation, nodular density overlying the left lateral lung concerning for metastatic disease as previously noted. Discussed patient case with patient, family and ED physician and eventual allowance of sedation with etomidate in the ED and CT scan chest to be obtained. Given patient reticence discussed with the ED physician and will also obtain CT head and abdomen and pelvis. 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 (Chronic) Peripheral edema (Chronic) Chronic pain (Chronic) ER+ (estrogen receptor positive status) (Chronic) Multiple skin nodules (Chronic) Brain metastasis (Chronic) Medical History: Medical History (Last Reviewed 10/03/17 @ 14:42 by Marisa Sanders) Anxiety F41.9 Arthritis M19.90 Back problem M53.9 BACK PROBLEM, THORACIC REGION Breast cancer C50.919 LUNG CANCER Breast lump in female N63.0 RIGHT BREAST GERD (gastroesophageal reflux disease) K21.9 History of swelling of feet Z87.39 SWELLING OF FEET AND LEGS ( BILATERAL ) Malignant neoplasm of unspecified site of right female breast C50.911 Neck pain M54.2 Non-Hodgkin lymphoma C85.90 Sebaceous cyst L72.3 Secondary malignant neoplasm of unspecified lung C78.00 Thrombocytopenia D69.6 brain surgery tumor removal Jul 05 2017 [facility] Allergies Latex, Natural Rubber Allergy (Severe, Verified 10/03/17 14:43) Hives POWDER inside the latex that causes reaction, not the latex itself aloe vera Adverse Reaction (Severe, Verified 10/03/17 14:43) Rash egg Adverse Reaction (Severe, Verified 10/03/17 14:43) Diarrhea hydrocodone bitartrate [From Vicodin] Adverse Reaction (Severe, Verified 14:43) Vomiting morphine Adverse Reaction (Severe, Verified 10/03/17 14:43) Other DECREASED BP TAPE Adverse Reaction (Mild, Uncoded 10/03/17 14:43) redness THIN SKIN Home Medications: Ambulatory Orders Medication Instructions Recorded Acetaminophen [Tylenol] 650 mg PO QHS PRN 11/17/16 Albuterol Inhaler [Ventolin Hfa] 1 puff INHALATION Q4H PRN PRN 01/19/17 Albuterol Aerosols [Ventolin 2.5 mg INHALATION Q6H PRN PRN 09/08/17 Aerosols] Multivitamin [Multiple Vitamins] 1 each PO DAILY 09/08/17 Clonazepam [Klonopin] 0.5 mg PO BID 10/03/17 Megestrol [Megace] 40 mg PO 4X/DAY #160 tab 10/03/17 Tamoxifen Citrate [Nolvadex] 20 mg PO BID #60 tab 10/03/17 Furosemide [Lasix] 20 mg PO DAILY 10/23/17 Surgical History: Surgical History (Last Reviewed 10/03/17 @ 14:42 by Marisa Sanders) H/O arthroscopy of right knee Z98.890 H/O: hysterectomy Z90.710 History of section Z98.891 3 c-sections History of lumpectomy of right breast Z98.890 RIGHT BREAST LUMPECTOMY WITH NIPPLE/ ARELOAR Hx of cholecystectomy Z90.49 Status post left foot surgery Z98.890 Surgical History: cholecystectomy, hysterectomy, - - Right breast lumpectomy, left foot surgery, right knee arthroscopy, craniotomy and tumor resection. 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 Smoking Status: Never smoker Tobacco Use: Non-smoker Alcohol: None Drugs: None - *Family History Maternal Family History: Family History (Last Reviewed 10/03/17 @ 14:42 by Marisa Sanders) Mother Lung cancer Colon cancer Stomach cancer Father COPD (chronic obstructive pulmonary disease) Sister Breast cancer Brother Heart disease History Items: - - With history of colon cancer, lung cancer and stomach cancer. Paternal Family History: Family History (Last Reviewed 10/03/17 @ 14:42 by Marisa Sanders) Mother Lung cancer Colon cancer Stomach cancer Father COPD (chronic obstructive pulmonary disease) Sister Breast cancer Brother Heart disease History Items: COPD Review of Systems Constitutional: Reports: Anorexia, Malaise, Weakness, Fatigue. Denies: Chills, Fever, Weight Change HEENT: Denies: Head Aches, Sinus Congestion, Sinus Drainage Cardiovascular: Reports: Edema, Orthopnea. Denies: Chest Pain, Heaviness, Light Headedness, Palpitations Respiratory: Reports: Shortness of Breath, Shortness of breath at rest, Shortness of breath upon exertion. Denies: Cough, Sputum production, Wheezing Gastrointestinal: Reports: Nausea. Denies: Abdominal Pain, Vomiting Genitourinary: Denies: Dysuria Musculoskeletal: Reports: Back Pain. Denies: Joint Pain, Joint Tenderness Skin: Denies: Rash, Wounds Neurological: Denies: Numbness, Tingling, Focal weakness Psychiatric: Reports: Anxiety, Depression. Denies: Homicidal Ideations, Suicidal Ideations Hematologic/ Lymphatic: Reports: Anemia, Easy Bruising, Easy Bleeding VTE Information - Inpt Only VTE Present on Admission: No VTE Mechan Device Prophylaxis: SCD's VTE Pharm Prophylaxis ordered?: Yes Patient Problems: Active and Suspected Problems (Last Reviewed 10/03/17 @ 14:42 by Marisa Sanders) Acute respiratory failure with hypoxia (Acute) Lactic acidosis (Acute) Elevated liver enzymes (Acute) Hypokalemia (Acute) Subjective: Seated upright in the ED bed, ongoing increased respiratory rate, conversational dyspnea, accessory muscle usage, anxious with discussions but eventual allowance of sedation for imaging studies. Objective: Physical Examination: General: awake, alert, oriented x 3, intermittently cooperative, seated upright in the ED bed, accessory muscle usage, increased respiratory rate, conversational dyspnea with ongoing respiratory distress although she notes improved from initial presentation and still refusing BiPAP consideration. Skin: normal color, turgor, no icterus, cyanosis. HEENT: AT/NC, EOMI, PERRLA, dry MM, no carotid bruits, unable to discern JVD secondary to habitus with thickened neck. Lungs: Severely diminished BS, > R side to mid posterior field, no marked rales noted, no wheezing or marked rhonchi, poor effort, accessory muscle usage, increased respiratory rate, conversational dyspnea with ongoing respiratory distress. Heart: Tachycardic with regular rhythm; no gallop, rub audible. Abdomen: soft, morbidly obese, NTTP, ND, normal BS, unable to discern HSM secondary to morbidly obese habitus. Extremities: no cyanosis, clubbing, BL LE pedal to distal coburn 2+ edema, painful with palpation of her edema. Neurological: patient awake, alert, oriented x 3; cognitive function intact; pupils equally reactive to light and accomodation; cranial nerves II-XII grossly normal, moving all 4 extremities, strength severely globally decreased secondary to acute presentation. Psychiatric: affect appears fatigued, anxious, no acute evidence of depressive feelings. - Physical Exam Vital Signs Temp Pulse Resp BP Pulse Ox 98.1 F 123 H 24 H 115/53 L 95 10/23/17 10:46 10/23/17 15:05 10/23/17 15:05 10/23/17 15:05 10/23/17 15:05 Oxygen Flow Rate (L/min) 2 Oxygen Delivery Method Nasal Cannula Weight: 228 lb 6.4 oz Body Mass Index (BMI) 44.6 Laboratory Tests Past 24 Hrs 10/23/17 10/23/17 10/23/17 11:15 11:15 11:15 WBC 3.4 L RBC 2.23 L Hgb 8.2 L Hct 25.3 L MCV 113.5 H MCH 36.8 H MCHC 32.4 RDW 16.6 H RDW Differential 67.5 H Plt Count 302 MPV 12.1 H Neut % (Auto) Not Reportable Absolute Neuts (auto) 1.7 L Absolute Lymphs (auto) 1.50 Total Counted 100 Neutrophils % (Manual) 45 L Band Neutrophils % 4 Lymphocytes % (Manual) 43 H Metamyelocytes % 4 H Myelocytes % 3 H Blast Cells % 1 H* Diff Path Review May foll Platelet Estimate ADEQUATE Plt Morphology Comment LARGE Hypochromasia 2+ Anisocytosis 2+ PT 17.9 H INR 1.5 APTT 28.1 Sodium Potassium Chloride Carbon Dioxide Anion Gap BUN Creatinine Estim Creat Clear Calc Est GFR (MDRD) Af Amer Est GFR (MDRD) Non-Af BUN/Creatinine Ratio Glucose Lactic Acid 2.1 H Calcium Total Bilirubin AST ALT Alkaline Phosphatase Troponin I B-Natriuretic Peptide Total Protein Albumin Globulin Albumin/Globulin Ratio 10/23/17 10/23/17 10/23/17 11:15 11:15 15:21 WBC RBC Hgb Hct MCV MCH MCHC RDW RDW Differential Plt Count MPV Neut % (Auto) Absolute Neuts (auto) Absolute Lymphs (auto) Total Counted Neutrophils % (Manual) Band Neutrophils % Lymphocytes % (Manual) Metamyelocytes % Myelocytes % Blast Cells % Diff Path Review Platelet Estimate Plt Morphology Comment Hypochromasia Anisocytosis PT INR APTT Sodium 138 Potassium 3.4 L Chloride 103 Carbon Dioxide 29.0 Anion Gap 6 BUN 16 Creatinine 0.69 Estim Creat Clear Calc 34.91 Est GFR (MDRD) Af Amer 107 Est GFR (MDRD) Non-Af 89 BUN/Creatinine Ratio 23.3 H Glucose 151 H Lactic Acid Pending Calcium 8.8 Total Bilirubin 0.90 AST 165 H ALT 472 H Alkaline Phosphatase 47 Troponin I < 0.015 B-Natriuretic Peptide 24.2 Total Protein 7.2 Albumin 3.6 Globulin 3.6 Albumin/Globulin Ratio 1.0 Assessment/Plan All Active Problems (Last Reviewed 10/03/17 @ 14:42 by Marisa Sanders) Acute respiratory failure with hypoxia (Acute) Lactic acidosis (Acute) Elevated liver enzymes (Acute) Hypokalemia (Acute) Non-Hodgkin lymphoma (Acute) Hypertrophy of breast (Acute) Personal history of malignant neoplasm of breast (Acute) URI (upper respiratory infection) (Acute) Abnormal surgical wound (Acute) Tachycardia (Acute) Macrocytic anemia (Acute) The patient is a 77 y/o F w/ PMHx: Anxiety, Morbid Obesity, Chronic Leukopenia, Thrombocytopenia and Anemia (AOCD), Metastatic Ductal Carcinoma as well as dx 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 (1) Acute Hypoxic Respiratory Failure, Unclear Etiology, Suspect Acute Pulmonary Embolism complicated by Worsening Metastatic Cancer in the Lung: Refusing BIPAP in the ED, awaiting ED sedation with planned CT head, CT A/P and CTPA to further assess for etiology of acute respiratory failure. Will await imaging prior to decision for level of care. If PE presentation would initiate therapeutic lovenox given per discussion with Oncology she has been cleared for anticoagulation if needed although given habitus may be marked dosing needs, maintain on telemetry, cycle cardiac enzymes, hydrate given BNP normal and overload not suspected, consult Dr. Landry/Braxton if appropriate, consult Dr. Brock who has been notified and will see patient in AM. Duonebs, PRN albuterol if able to tolerate. PRN ativan given severity of her anxiety. Encourage consideration BIPAP, may secondary to fatigue require eventual intubation. 2017 ECHO w/ EF 65%, normal diastology for age, trivial MV insufficiency, RVSP 31 mmHg. (2) BL LE Edema, Orthopnea: Suspect secondary to primary etiology, #1, possibly worsening progressive metastatic lung cancer versus pulmonary embolism, BNP normal, CXR without marked effusion/congestion, will obtain STAT DVT US BL LE given concern as noted for acute PE, if negative will place snug SANDEEP wraps, elevated BL LE, educated about dependent edema given her transition from bed to chair for sleeping. May need referral to [facility] for her ongoing edema for measure for compression stockings. Will continue her home oral lasix. 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 Dx 09/26/12 s/p R-EPOCH x 6 cycles at [facility], 2015 CT scans obtained for lymphoma surveillance revealed soft tissue mass L pulmonary ligament, confirmed PET w/ [facility] referral for EUS Bx following which the patient was lost to follow-up until 10/2015 w/ onset R Breast mass w/ Bx Adenocarcinoma, ER positive and HER2 gretchen negative w/ Bx positive for metastatic adenocarcinoma, ER positive, AZ negative, HER2 negative-consistent with breast primary w/ discontinuation of Anastrazole and Faslodex and Ibrance started w/ event discontinuation w/ progressive disease w/ start on Herceptin w/ Her2 positive by IHC w/ onset R arm weakness w/ CT head w/ L brain mass noted 06/2017 and follow-up MRI brain w/ solitary brain lesion noted w/ [facility] craniotomy 07/05/2017 w / Bx Metastatic Breast cancer, ER/AZ positive, Her2 negative. Mag and phos pending. Dr. Brock aware and will evaluate in AM. Needs BM Bx. (4) Lactic Acidosis, Resolved: Possible secondary to #1, dehydration, unclear specific etiology, ED initial LA 2.1-->repeat 1.2, resolved. (5) Morbid Obesity: Weight loss and lifestyle changes encouraged, nutrition consulted. (6) Anxiety: Will continue home dose klonopin, PRN ativan. (7) CODE status: Patient notes living will in place. She notes her son and daughter are her HCPOA. Discussed CODE status at length including difference between FULL code, DNR-CCA and DNR-CC status. Following discussions about the differences in these status, requested Full Code status. Advanced Care Planning Face to Face Time: 20 minutes. Code Visit Inpatient E&M: 83452 Init Hosp L3 Procedures: 23773 Advncd Care Plan 30 Min
[2017-10-23 15:56] LABS: Lactic Acid 1.2 mmol/L (0.4-2.0)
--- NOTE | 2017-10-23 16:18 | ED.VISSUMM ---
- ER Visit Summary Date of Service: 10/23/17 Chief Complaint: Shortness of breath History of Present Illness: The patient is a 77 F who states that she has shortness of breath. She reports that it has been progressive and she also notes leg swelling. It got very worse last night. She cannot lay down. She is oncology. She has metastatic breast cancer with metastasis to lung and brain. She underwent resection of brain tumor in July at [facility]. She also has a history of non-Hodgkin's lymphoma (B-cell). In the recent month she has not been able to complete bone marrow biopsy or CT scan for which she describes as her anxiety. She denies any fevers. She states that couple weeks ago due to her leg swelling she saw her primary care physician and was given a yellow pill and a water pill. Physical Examination: Blood pressure 120/70. Heart rate of 129. Respirations are 34 pulse ox is 100% on nonrebreather. Is 87% on 3 L. Temperature is 98.1 Gen: Well-nourished well-developed orbitally obese Head: Normocephalic atraumatic Eyes: Perrl EOMI ENT: TMs clear no rhinorrhea moist mucous membranes Neck: Supple no lymphadenopathy no JVD nontender CVS: Regular rate and tachycardic rhythm no murmurs normal S1-S2 Respiratory: Patient has tachypnea. I hear very little breath sounds on the right. chest nontender Abdomen: Soft nontender nondistended normal bowel sounds ventral hernia Back: Nontender Skin: Normal color no rash Extremity: Nontender 3+ edema bilaterally of the lower extremity Neuro: alert orientated ?3 CN II-XII intact normal strength sensation Psych: Very anxious Test Results: White count 3.4 hemoglobin 8.2 platelets are 302. Noted 1 blast. Lactic acid 2.1. Potassium 3.4. Glucose 151. INR 1.5. PTT 28.1. Chest x-ray was very limited due to motion artifact. Emergency Department Course and Treatment: I try to give the patient BiPAP she adamantly refused. Give her an oxycodone some Ativan aerosols Lasix. She adamantly refuses CT states she cannot lie flat. Not sure why she states that she cannot lay flat but I have feeling he has to do with body habitus and her anxiety. Spoke with the patient and her family on numerous occasions during her ED stay. Spoke with the hospitalist spoke with the patient. Patient is agreed to CT scan under sedation. Patient provided informed consent for the use of etomidate. Accompanied along with nursing and respiratory therapy to the CT scanner with the patient received 0.15 mix per kick of etomidate to achieve sedation. Once sedation was achieved the head CT was obtained. She required re-dosing to get through the CT of the abdomen pelvis. Patient tolerated the sedation extremely well. We are currently awaiting the results of the ct and patient will plan on being admitted. Hospitalist has spoken with oncology. Impression: 1. Metastatic cancer 2. Lymphedema 3. Hypoxemia 4. Elevated lactic acid 5. Procedural sedation by physician 6. Critical care time 35 minutes This note was generated with [employer] dictation software. It may contain incorrect words, spelling, and punctuation that were not noted in review of the chart prior to signing ED Disposition - Plan for ED Patient: Chief Complaint: Shortness of Breath Referrals: Alex Vizcarra MD [Primary Care Provider] -
[2017-10-23] MEDS: Etomidate 20 MG/10 ML Vial 15 MG IV (16:32)
[2017-10-23] MEDS: Etomidate 20 MG/10 ML Vial IV (16:33)
--- NOTE | 2017-10-23 17:33 | NURSING ---
CALLED [facility] TO SEND PT.
[2017-10-23 18:15] LABS: Phosphorus 3.1 mg/dL (2.5-4.9)
[2017-10-23] MEDS: 0.9% Normal Saline 1,000 ML 75 ML IV (19:05)
[2017-10-23] MEDS: Enoxaparin 100 MG/ML Syringe SC (19:26)
[2017-10-23] MEDS: Megestrol 40 MG Tablet PO ×2 (19:28→21:46)
[2017-10-23] MEDS: Metoprolol Tartrate 5 MG/5 ML Vial IV (19:33)
[2017-10-23] MEDS: clonazePAM 0.5 MG Tablet PO (21:45)
[2017-10-23] MEDS: Senna/Docusate Sodium 1 Tablet 2 TABLET PO (21:45)
[2017-10-23] MEDS: Tamoxifen 10 MG Tablet 20 MG PO (21:46)
[2017-10-24] VITALS (25 sets, daily range): BP systolic 98–135; BP diastolic 51–76; PULSE 88–120; RESP 16–28; TEMP 36.6–37.7; O2SAT 92–97; BMI 44.4
[2017-10-24] MEDS: 0.9% NaCl Peripheral Flush Adult/Peds IV (00:16)
[2017-10-24] MEDS: LORazepam 2 MG/ML Syringe 0.5 MG IV ×2 (00:17→20:32)
[2017-10-24] MEDS: Mag Hydrox/Al Hydrox/Simeth 30 ML UDC PO (02:32)
[2017-10-24] MEDS: Enoxaparin 100 MG/ML Syringe SC ×2 (05:33→17:08)
[2017-10-24] MEDS: 0.9% Normal Saline 1,000 ML 75 ML IV ×2 (05:33→20:12)
[2017-10-24] MEDS: clonazePAM 0.5 MG Tablet PO ×3 (05:33→21:17)
[2017-10-24 06:56] LABS: Hematocrit 22.8 % (37-47); Hemoglobin 7.3 g/dl (12.0-15.0); Mean Corpuscular Hgb 36.7 pg (27.0-32.0); Mean Corpuscular Volume 114.6 fL (81-99); Mean Platelet Vol. 12.9 fl (6.2-12.0); Platelet Count 263 K/mm3 (150-450); RBC Distribution Width CV 16.6 % (11.6-14.6); RBC Distribution Width SD 68.3 fl (35.1-43.9); Red Blood Count 1.99 M/mm3 (4.2-5.4)
[2017-10-24 07:00] LABS: Differential Indicated MANUAL DIFF; POSITIVE COUNT YES; POSITIVE DIFFERENTIAL NO; POSITIVE MORPHOLOGY YES
[2017-10-24 07:04] LABS: AST(SGOT) 145 U/L (15-37); Alanine Aminotransfer ALT/SGPT 432 U/L (13-56); Albumin, Serum 3.2 g/dL (3.2-5.0); Alkaline Phosphatase 43 U/L (45-117); Anion Gap 8 (5-15); BUN 16 mg/dL (7-18); BUN/Creat Ratio 27.4 RATIO (10-20); Calcium,Total 8.5 mg/dL (8.5-10.1); Chloride 103 mmol/L (98-107); Creatinine, Serum 0.58 mg/dL (0.55-1.02); EST Glomerular Filtration Rate 107 mL/min (>60); Est Glom Filt Rate - Afr Amer 129 mL/min (>60); Estimated Creatinine Clearance 78.81 ml/min; Globulin 3.2 g/dL (2.2-4.2); Glucose 110 mg/dL (74-106); Potassium 3.5 mmol/L (3.5-5.1); Protein, Total 6.4 g/dL (6.4-8.2); Sodium Level 139 mmol/L (136-145)
[2017-10-24] MEDS: Ipratropium/Albuterol Sulfate 3 ML AMPUL.NEB INHALATION ×4 (07:21→20:15)
--- NOTE | 2017-10-24 08:06 | NURSING ---
Cat scan called this AM to notify them that per Dr. Ferrari, she would like the CTPA to be re-read to assure no acute PE.
[2017-10-24] MEDS: oxyCODONE 5 MG Tablet PO ×2 (08:12→20:13)
[2017-10-24] MEDS: Multivitamins,Therapeutic Tablet 1 TABLET PO (08:13)
[2017-10-24 08:57] LABS: Anisocytosis 1+; Eosinophil 1 % (0-5); Lymphocyte 53 % (19-41); Monocyte 6 % (0-10); Myelocyte 1 (0-0); Neutrophil-Band 1 % (0-5); Neutrophil-Segmented 37 % (47-70); Platelet Estimate ADEQUATE (ADEQ); Promyelocyte 1 (0-0); Red Cell Morphology N CHROM NORMAL (NORM C&C); Total Cells Counted 100 (MANUAL DIFF)
[2017-10-24 08:58] LABS: Absolute Lymphocyte Count 2.12 X10^3/ul (0.83-4.51); Absolute Neutrophil Count 1.5 X10^3/uL (2.0-7.7)
[2017-10-24] MEDS: Famotidine 20 MG Tablet PO (10:24)
[2017-10-24] MEDS: Tamoxifen 10 MG Tablet 20 MG PO (10:24)
[2017-10-24] MEDS: Furosemide 20 MG Tablet PO (10:24)
[2017-10-24] MEDS: Senna/Docusate Sodium 1 Tablet 2 TABLET PO ×2 (10:24→21:18)
[2017-10-24] MEDS: Megestrol 40 MG Tablet PO ×4 (10:24→21:18)
--- NOTE | 2017-10-24 11:25 | PCM.CONS.GEN ---
Problem List (1) Acute respiratory failure with hypoxia Status: Acute (2) Lactic acidosis Status: Acute (3) Elevated liver enzymes Status: Acute (4) Chronic leukopenia Status: Chronic (5) Chronic anemia Status: Chronic (6) Breast cancer, right breast Status: Chronic Qualifiers: Breast location: unspecified site of breast Estrogen receptor status: unspecified Patient sex: female Qualified Code(s): C50.911 - Malignant neoplasm of unspecified site of right female breast (7) Secondary malignant neoplasm of lung Status: Chronic Qualifiers: Laterality: unspecified laterality Qualified Code(s): C78.00 - Secondary malignant neoplasm of unspecified lung (8) Non-Hodgkin lymphoma Status: Acute (9) Personal history of malignant neoplasm of breast Status: Acute (10) 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 Qualifiers: Laterality: right Qualified Code(s): C50.919 - Malignant neoplasm of unspecified site of unspecified female breast; C77.1 - Secondary and unspecified malignant neoplasm of intrathoracic lymph nodes (11) Peripheral edema Status: Chronic (12) ER+ (estrogen receptor positive status) Status: Chronic (13) Multiple skin nodules Status: Chronic (14) Macrocytic anemia Status: Acute Reason for Consult Date of Consultation: 10/24/17 Reason for Consultation: Acute hypoxic respiratory failure History of Present Illness: The patient is a 77 year old F with past medical history listed below, who presented to [facility] on 10/23/2017 secondary to progressive shortness of breath, orthopnea and concurrent lower extremity edema. Patient did not report any cough, fever or chills over the past 3 weeks prior to event. Patient has been referred to oncology for breast cancer, but was refusing any further imaging without sedation. While in the emergency department, patient was noted to be tachycardic and hypoxic. Patient was given etomidate to facilitate CT scan. [facility] CT showed multiple enlarging metastatic lesions, but no pulmonary embolism was appreciated. Patient was noted to have an INR of 1.5 and elevated lactate at 2.1. BMP was within normal limits. Patient was admitted to the PCU on supplemental oxygen. Since admission, patient feels subjectively improved with her dyspnea compared to previous. Patient denies any bleeding complications such as hemoptysis, melena or hematochezia. Patient does report right lower extremity pain that she feels was exacerbated by her lower extremity Doppler. Patient continues to deny any fever, cough or chills. Oncology has been consulted, but has not seen the patient at this time. Review of systems otherwise negative unless stated above. 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 (Chronic) Peripheral edema (Chronic) Chronic pain (Chronic) ER+ (estrogen receptor positive status) (Chronic) Multiple skin nodules (Chronic) Brain metastasis (Chronic) Medical History: Medical History (Last Reviewed 10/03/17 @ 14:42 by Marisa Sanders) Anxiety F41.9 Arthritis M19.90 Back problem M53.9 BACK PROBLEM, THORACIC REGION Breast cancer C50.919 LUNG CANCER Breast lump in female N63.0 RIGHT BREAST GERD (gastroesophageal reflux disease) K21.9 History of swelling of feet Z87.39 SWELLING OF FEET AND LEGS ( BILATERAL ) Malignant neoplasm of unspecified site of right female breast C50.911 Neck pain M54.2 Non-Hodgkin lymphoma C85.90 Sebaceous cyst L72.3 Secondary malignant neoplasm of unspecified lung C78.00 Thrombocytopenia D69.6 brain surgery tumor removal Jul 05 2017 [facility] Allergies Latex, Natural Rubber Allergy (Severe, Verified 10/03/17 14:43) Hives POWDER inside the latex that causes reaction, not the latex itself aloe vera Adverse Reaction (Severe, Verified 10/03/17 14:43) Rash egg Adverse Reaction (Severe, Verified 10/03/17 14:43) Diarrhea hydrocodone bitartrate [From Vicodin] Adverse Reaction (Severe, Verified 10/03/17 14:43) Vomiting morphine Adverse Reaction (Severe, Verified 10/03/17 14:43) Other DECREASED BP TAPE Adverse Reaction (Mild, Uncoded 10/03/17 14:43) redness THIN SKIN Home Medications: Ambulatory Orders Medication Instructions Recorded Acetaminophen [Tylenol] 650 mg PO QHS PRN 11/17/16 Albuterol Inhaler [Ventolin Hfa] 1 puff INHALATION Q4H PRN PRN 01/19/17 Albuterol Aerosols [Ventolin 2.5 mg INHALATION Q6H PRN PRN 09/08/17 Aerosols] Multivitamin [Multiple Vitamins] 1 each PO DAILY 09/08/17 Clonazepam [Klonopin] 0.5 mg PO BID 10/03/17 Megestrol [Megace] 40 mg PO 4X/DAY #160 tab 10/03/17 Tamoxifen Citrate [Nolvadex] 20 mg PO BID #60 tab 10/03/17 Furosemide [Lasix] 20 mg PO DAILY 10/23/17 Surgical History: Surgical History (Last Reviewed 10/03/17 @ 14:42 by Marisa Sanders) H/O arthroscopy of right knee Z98.890 H/O: hysterectomy Z90.710 History of section Z98.891 3 c-sections History of lumpectomy of right breast Z98.890 RIGHT BREAST LUMPECTOMY WITH NIPPLE/ ARELOAR Hx of cholecystectomy Z90.49 Status post left foot surgery Z98.890 Surgical History: cholecystectomy, hysterectomy, - - Right breast lumpectomy, left foot surgery, right knee arthroscopy, craniotomy and tumor resection. Psychiatric History: Anxiety, Depression [employer] History: No pertinent [employer] history Lives: Alone - Patient lives with her son. Smoking Status: Never smoker Tobacco Use: Non-smoker Alcohol: None Drugs: None - *Family History Maternal Family History: Family History (Last Reviewed 10/03/17 @ 14:42 by Marisa Sanders) Mother Lung cancer Colon cancer Stomach cancer Father COPD (chronic obstructive pulmonary disease) Sister Breast cancer Brother Heart disease History Items: - - With history of colon cancer, lung cancer and stomach cancer. Paternal Family History: Family History (Last Reviewed 10/03/17 @ 14:42 by Marisa Sanders) Mother Lung cancer Colon cancer Stomach cancer Father COPD (chronic obstructive pulmonary disease) Sister Breast cancer Brother Heart disease History Items: COPD Review of Systems Comment: See HPI, otherwise negative ?10 systems. Patient Problems: Active and Suspected Problems (Last Reviewed 10/03/17 @ 14:42 by Marisa Sanders) Acute respiratory failure with hypoxia (Acute) Lactic acidosis (Acute) Elevated liver enzymes (Acute) Hypokalemia (Acute) Objective: All imaging was personally reviewed. This does show enlarging pulmonary masses with a breast lesion. - Physical Exam General: Alert, Oriented x3, Cooperative, - - Mild respiratory distress with exertion. Morbidly obese. HEENT: Atraumatic, PERRLA, EOMI, Normocephalic, - - No scleral icterus or injection noted. Oral: Moist Mucosa, No Gingival or Mucosal Lesions/ Ulcerations Neck: Supple, No Nodes, Trachea Midline, - - JVD difficult to assess secondary to body habitus Lungs: No rhonchi, No wheeze, No rales, Diminished, - - Fair patient effort with inhalation Cardiovascular: Normal S1, Normal S2, No murmurs, No rub noted, No Gallop, Tachycardic Abdomen: Bowel Sounds Present, Soft, Non Tender, Non-Distended, Obese Extremities: No clubbing, No cyanosis, Capillary Refill Less than 3 Seconds, Edema - 3-4+ bilateral lower extremities Skin: - - Venous stasis changes the lower extremities Musculoskeletal: No Tenderness to Palpation of Joints or Extremities Lymphatic: No Cervical, Supraclavicular, or Inguinal Adenopathy Neurological: Cranial nerves II-XII grossly intact, Neuro grossly intact Psych/Mental Status: Anxious, Restless Vital Signs Temp Pulse Resp BP Pulse Ox 37.1 C 118 H 16 125/58 H 94 10/24/17 10:20 10/24/17 10:20 10/24/17 10:20 10/24/17 10:20 10/24/17 10:20 Oxygen Flow Rate (L/min) 4 Oxygen Delivery Method Nasal Cannula Weight: 102.7 kg Body Mass Index (BMI) 44.4 Intake and Output for Last 24 Hours 10/22/17 10/23/17 10/24/17 23:59 23:59 23:59 Intake Total 694 / 694 736 / 736 Output Total 875 / 875 150 / 150 Balance -181 / -181 586 / 586 Laboratory Tests Past 24 Hrs 10/23/17 10/23/17 10/24/17 18:35 21:20 00:00 WBC RBC Hgb Hct MCV MCH MCHC RDW RDW Differential Plt Count MPV Neut % (Auto) Absolute Neuts (auto) Absolute Lymphs (auto) Total Counted Neutrophils % (Manual) Band Neutrophils % Lymphocytes % (Manual) Monocytes % (Manual) Eosinophils % (Manual) Myelocytes % Promyelocytes % Diff Path Review Platelet Estimate RBC Morphology Anisocytosis Sodium Potassium Chloride Carbon Dioxide Anion Gap BUN Creatinine Estim Creat Clear Calc Est GFR (MDRD) Af Amer Est GFR (MDRD) Non-Af BUN/Creatinine Ratio Glucose Calcium Total Bilirubin AST ALT Alkaline Phosphatase Troponin I < 0.015 < 0.015 < 0.015 Total Protein Albumin Globulin Albumin/Globulin Ratio 10/24/17 10/24/17 05:50 05:50 WBC 4.0 L RBC 1.99 L Hgb 7.3 L Hct 22.8 L MCV 114.6 H MCH 36.7 H MCHC 32.0 RDW 16.6 H RDW Differential 68.3 H Plt Count 263 MPV 12.9 H Neut % (Auto) Not Reportable Absolute Neuts (auto) 1.5 L Absolute Lymphs (auto) 2.12 Total Counted 100 Neutrophils % (Manual) 37 L Band Neutrophils % 1 Lymphocytes % (Manual) 53 H Monocytes % (Manual) 6 Eosinophils % (Manual) 1 Myelocytes % 1 H Promyelocytes % 1 H Diff Path Review May foll Platelet Estimate ADEQUATE RBC Morphology N CHROM Anisocytosis 1+ Sodium 139 Potassium 3.5 Chloride 103 Carbon Dioxide 28.0 Anion Gap 8 BUN 16 Creatinine 0.58 Estim Creat Clear Calc 78.81 Est GFR (MDRD) Af Amer 129 Est GFR (MDRD) Non-Af 107 BUN/Creatinine Ratio 27.4 H Glucose 110 H Calcium 8.5 Total Bilirubin 1.30 H AST 145 H ALT 432 H Alkaline Phosphatase 43 L Troponin I Total Protein 6.4 Albumin 3.2 Globulin 3.2 Albumin/Globulin Ratio 1.0 Clinical Impression(s) from Imaging Studies Chest X-Ray 10/23/17 10:58 IMPRESSION: Exam limited due to motion artifact with question of prominent pulmonary vasculature. No evidence of large focal consolidation. Nodular density overlying the left lateral lung concerning for metastatic disease as previously noted. Electronically Signed: Luis Block DO at 11:35 EDT , Service support , Chest CTA 10/23/17 11:54 IMPRESSION: 1. Multiple pulmonary metastases, increased in size compared to the prior study. 2. Multiple soft tissue metastases, new or increased compared to the prior study. 3. New right retroperitoneal nodule, presumed metastatic node. 4. New left renal or retroperitoneal lesion, suspicious for metastasis. 5. Stable hepatic cyst. 6. Stable thyroid lesion. Electronically Signed: Coretta Conklin MD at 17:11 EDT Tel , Service support , Abdomen/Pelvis CT 10/23/17 15:21 IMPRESSION: 1. Multiple pulmonary metastases, increased in size compared to the prior study. 2. Multiple soft tissue metastases, new or increased compared to the prior study. 3. New right retroperitoneal nodule, presumed metastatic node. 4. New left renal or retroperitoneal lesion, suspicious for metastasis. 5. Stable hepatic cyst. 6. Stable thyroid lesion. Electronically Signed: Coretta Conklin MD at 17:12 EDT Tel , Service support , Brain CT 10/23/17 15:21 IMPRESSION: 1. No acute process. No evidence of recurrent mass. 2. Postsurgical changes in the left parietal lobe. Electronically Signed: Coretta Conklin MD at 16:40 EDT Tel , Service support , Assessment/Plan All Active Problems (Last Reviewed 10/03/17 @ 14:42 by Marisa Sanders) Acute respiratory failure with hypoxia (Acute) Lactic acidosis (Acute) Elevated liver enzymes (Acute) Hypokalemia (Acute) Non-Hodgkin lymphoma (Acute) Hypertrophy of breast (Acute) Personal history of malignant neoplasm of breast (Acute) URI (upper respiratory infection) (Acute) Abnormal surgical wound (Acute) Tachycardia (Acute) Macrocytic anemia (Acute) RECOMMENDATIONS: 1. Continue systemic anticoagulation 2. Oncology to discuss prognosis 3. Wean oxygen as tolerated 4. Increase activity as tolerated 5. Agree with holding antibiotics and steroids IMPRESSIONS: 1. Acute hypoxic respiratory insufficiency secondary to probable PE CT scan of the chest was not consistent with acute pulmonary embolism, but patient has been found to have a DVT of the lower extremity. Patient did present with tachycardia and decreased saturations. Clinical suspicion for subclinical PE leading to acute hypoxic respiratory insufficiency. Patient is appropriately on Lovenox therapy. Unclear data on the use of 10 A inhibitors in the setting of active malignancy. Would not recommend intubation as recovery would be highly unlikely given progressive cancer. Patient is refusing any noninvasive therapy such as BiPAP at this time 2. Metastatic breast cancer/stage IV high-grade diffuse B-cell lymphoma/leukopenia/anemia of chronic disease CT scans show progression of disease despite aggressive stance by oncology. Will await oncology consult, but prognosis appears to be grim at this time. Patient may be better served by using comfort measures moving forward. Did not address this with the patient directly as oncology has not had an opportunity to evaluate the patient. 3. Hepatitis Clinical suspicion for elevation of liver enzymes secondary to hypoxic damage. Patient has responded well to hemodynamic support. 4. Morbid obesity/anxiety/advanced age Complicates care, management, recovery and prognosis. Code Visit Inpatient E&M: 39852 Init Hosp L3
--- NOTE | 2017-10-24 11:31 | CON.PCM_ITS ---
Problem List (1) Acute respiratory failure with hypoxia Status: Acute (2) Lactic acidosis Status: Acute (3) Elevated liver enzymes Status: Acute (4) Chronic leukopenia Status: Chronic (5) Chronic anemia Status: Chronic (6) Breast cancer, right breast Status: Chronic Qualifiers: Breast location: unspecified site of breast Estrogen receptor status: unspecified Patient sex: female Qualified Code(s): C50.911 - Malignant neoplasm of unspecified site of right female breast (7) Secondary malignant neoplasm of lung Status: Chronic Qualifiers: Laterality: unspecified laterality Qualified Code(s): C78.00 - Secondary malignant neoplasm of unspecified lung (8) Non-Hodgkin lymphoma Status: Acute (9) Personal history of malignant neoplasm of breast Status: Acute (10) 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 Qualifiers: Laterality: right Qualified Code(s): C50.919 - Malignant neoplasm of unspecified site of unspecified female breast; C77.1 - Secondary and unspecified malignant neoplasm of intrathoracic lymph nodes (11) Peripheral edema Status: Chronic (12) ER+ (estrogen receptor positive status) Status: Chronic (13) Multiple skin nodules Status: Chronic (14) Macrocytic anemia Status: Acute Reason for Consult Date of Consultation: 10/24/17 Reason for Consultation: Acute hypoxic respiratory failure History of Present Illness: The patient is a 77 year old F with past medical history listed below, who presented to [facility] on 10/23/2017 secondary to progressive shortness of breath, orthopnea and concurrent lower extremity edema. Patient did not report any cough, fever or chills over the past 3 weeks prior to event. Patient has been referred to oncology for breast cancer, but was refusing any further imaging without sedation. While in the emergency department, patient was noted to be tachycardic and hypoxic. Patient was given etomidate to facilitate CT scan. [facility] CT showed multiple enlarging metastatic lesions, but no pulmonary embolism was appreciated. Patient was noted to have an INR of 1.5 and elevated lactate at 2.1. BMP was within normal limits. Patient was admitted to the PCU on supplemental oxygen. Since admission, patient feels subjectively improved with her dyspnea compared to previous. Patient denies any bleeding complications such as hemoptysis, melena or hematochezia. Patient does report right lower extremity pain that she feels was exacerbated by her lower extremity Doppler. Patient continues to deny any fever, cough or chills. Oncology has been consulted, but has not seen the patient at this time. Review of systems otherwise negative unless stated above. 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 (Chronic) Peripheral edema (Chronic) Chronic pain (Chronic) ER+ (estrogen receptor positive status) (Chronic) Multiple skin nodules (Chronic) Brain metastasis (Chronic) Medical History: Medical History (Last Reviewed 10/03/17 @ 14:42 by Marisa Sanders) Anxiety F41.9 Arthritis M19.90 Back problem M53.9 BACK PROBLEM, THORACIC REGION Breast cancer C50.919 LUNG CANCER Breast lump in female N63.0 RIGHT BREAST GERD (gastroesophageal reflux disease) K21.9 History of swelling of feet Z87.39 SWELLING OF FEET AND LEGS ( BILATERAL ) Malignant neoplasm of unspecified site of right female breast C50.911 Neck pain M54.2 Non-Hodgkin lymphoma C85.90 Sebaceous cyst L72.3 Secondary malignant neoplasm of unspecified lung C78.00 Thrombocytopenia D69.6 brain surgery tumor removal Jul 05 2017 [facility] Allergies Latex, Natural Rubber Allergy (Severe, Verified 10/03/17 14:43) Hives POWDER inside the latex that causes reaction, not the latex itself aloe vera Adverse Reaction (Severe, Verified 10/03/17 14:43) Rash egg Adverse Reaction (Severe, Verified 10/03/17 14:43) Diarrhea hydrocodone bitartrate [From Vicodin] Adverse Reaction (Severe, Verified 14:43) Vomiting morphine Adverse Reaction (Severe, Verified 10/03/17 14:43) Other DECREASED BP TAPE Adverse Reaction (Mild, Uncoded 10/03/17 14:43) redness THIN SKIN Home Medications: Ambulatory Orders Medication Instructions Recorded Acetaminophen [Tylenol] 650 mg PO QHS PRN 11/17/16 Albuterol Inhaler [Ventolin Hfa] 1 puff INHALATION Q4H PRN PRN 01/19/17 Albuterol Aerosols [Ventolin 2.5 mg INHALATION Q6H PRN PRN 09/08/17 Aerosols] Multivitamin [Multiple Vitamins] 1 each PO DAILY 09/08/17 Clonazepam [Klonopin] 0.5 mg PO BID 10/03/17 Megestrol [Megace] 40 mg PO 4X/DAY #160 tab 10/03/17 Tamoxifen Citrate [Nolvadex] 20 mg PO BID #60 tab 10/03/17 Furosemide [Lasix] 20 mg PO DAILY 10/23/17 Surgical History: Surgical History (Last Reviewed 10/03/17 @ 14:42 by Marisa Sanders) H/O arthroscopy of right knee Z98.890 H/O: hysterectomy Z90.710 History of section Z98.891 3 c-sections History of lumpectomy of right breast Z98.890 RIGHT BREAST LUMPECTOMY WITH NIPPLE/ ARELOAR Hx of cholecystectomy Z90.49 Status post left foot surgery Z98.890 Surgical History: cholecystectomy, hysterectomy, - - Right breast lumpectomy, left foot surgery, right knee arthroscopy, craniotomy and tumor resection. 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 Smoking Status: Never smoker Tobacco Use: Non-smoker Alcohol: None Drugs: None - *Family History Maternal Family History: Family History (Last Reviewed 10/03/17 @ 14:42 by Marisa Sanders) Mother Lung cancer Colon cancer Stomach cancer Father COPD (chronic obstructive pulmonary disease) Sister Breast cancer Brother Heart disease History Items: - - With history of colon cancer, lung cancer and stomach cancer. Paternal Family History: Family History (Last Reviewed 10/03/17 @ 14:42 by Marisa Sanders) Mother Lung cancer Colon cancer Stomach cancer Father COPD (chronic obstructive pulmonary disease) Sister Breast cancer Brother Heart disease History Items: COPD Review of Systems Comment: See HPI, otherwise negative ?10 systems. Patient Problems: Active and Suspected Problems (Last Reviewed 10/03/17 @ 14:42 by Marisa Sanders) Acute respiratory failure with hypoxia (Acute) Lactic acidosis (Acute) Elevated liver enzymes (Acute) Hypokalemia (Acute) Objective: All imaging was personally reviewed. This does show enlarging pulmonary masses with a breast lesion. - Physical Exam General: Alert, Oriented x3, Cooperative, - - Mild respiratory distress with exertion. Morbidly obese. HEENT: Atraumatic, PERRLA, EOMI, Normocephalic, - - No scleral icterus or injection noted. Oral: Moist Mucosa, No Gingival or Mucosal Lesions/ Ulcerations Neck: Supple, No Nodes, Trachea Midline, - - JVD difficult to assess secondary to body habitus Lungs: No rhonchi, No wheeze, No rales, Diminished, - - Fair patient effort with inhalation Cardiovascular: Normal S1, Normal S2, No murmurs, No rub noted, No Gallop, Tachycardic Abdomen: Bowel Sounds Present, Soft, Non Tender, Non-Distended, Obese Extremities: No clubbing, No cyanosis, Capillary Refill Less than 3 Seconds, Edema - 3-4+ bilateral lower extremities Skin: - - Venous stasis changes the lower extremities Musculoskeletal: No Tenderness to Palpation of Joints or Extremities Lymphatic: No Cervical, Supraclavicular, or Inguinal Adenopathy Neurological: Cranial nerves II-XII grossly intact, Neuro grossly intact Psych/Mental Status: Anxious, Restless Vital Signs Temp Pulse Resp BP Pulse Ox 37.1 C 118 H 16 125/58 H 94 10/24/17 10:20 10/24/17 10:20 10/24/17 10:20 10/24/17 10:20 10/24/17 10:20 Oxygen Flow Rate (L/min) 4 Oxygen Delivery Method Nasal Cannula Weight: 102.7 kg Body Mass Index (BMI) 44.4 Intake and Output for Last 24 Hours 10/22/17 10/23/17 10/24/17 23:59 23:59 23:59 Intake Total 694 / 694 736 / 736 Output Total 875 / 875 150 / 150 Balance -181 / -181 586 / 586 Laboratory Tests Past 24 Hrs 10/23/17 10/23/17 10/24/17 18:35 21:20 00:00 WBC RBC Hgb Hct MCV MCH MCHC RDW RDW Differential Plt Count MPV Neut % (Auto) Absolute Neuts (auto) Absolute Lymphs (auto) Total Counted Neutrophils % (Manual) Band Neutrophils % Lymphocytes % (Manual) Monocytes % (Manual) Eosinophils % (Manual) Myelocytes % Promyelocytes % Diff Path Review Platelet Estimate RBC Morphology Anisocytosis Sodium Potassium Chloride Carbon Dioxide Anion Gap BUN Creatinine Estim Creat Clear Calc Est GFR (MDRD) Af Amer Est GFR (MDRD) Non-Af BUN/Creatinine Ratio Glucose Calcium Total Bilirubin AST ALT Alkaline Phosphatase Troponin I < 0.015 < 0.015 < 0.015 Total Protein Albumin Globulin Albumin/Globulin Ratio 10/24/17 10/24/17 05:50 05:50 WBC 4.0 L RBC 1.99 L Hgb 7.3 L Hct 22.8 L MCV 114.6 H MCH 36.7 H MCHC 32.0 RDW 16.6 H RDW Differential 68.3 H Plt Count 263 MPV 12.9 H Neut % (Auto) Not Reportable Absolute Neuts (auto) 1.5 L Absolute Lymphs (auto) 2.12 Total Counted 100 Neutrophils % (Manual) 37 L Band Neutrophils % 1 Lymphocytes % (Manual) 53 H Monocytes % (Manual) 6 Eosinophils % (Manual) 1 Myelocytes % 1 H Promyelocytes % 1 H Diff Path Review May foll Platelet Estimate ADEQUATE RBC Morphology N CHROM Anisocytosis 1+ Sodium 139 Potassium 3.5 Chloride 103 Carbon Dioxide 28.0 Anion Gap 8 BUN 16 Creatinine 0.58 Estim Creat Clear Calc 78.81 Est GFR (MDRD) Af Amer 129 Est GFR (MDRD) Non-Af 107 BUN/Creatinine Ratio 27.4 H Glucose 110 H Calcium 8.5 Total Bilirubin 1.30 H AST 145 H ALT 432 H Alkaline Phosphatase 43 L Troponin I Total Protein 6.4 Albumin 3.2 Globulin 3.2 Albumin/Globulin Ratio 1.0 Clinical Impression(s) from Imaging Studies Chest X-Ray 10/23/17 10:58 IMPRESSION: Exam limited due to motion artifact with question of prominent pulmonary vasculature. No evidence of large focal consolidation. Nodular density overlying the left lateral lung concerning for metastatic disease as previously noted. Electronically Signed: Luis Block DO at 11:35 EDT , Service support , Chest CTA 10/23/17 11:54 IMPRESSION: 1. Multiple pulmonary metastases, increased in size compared to the prior study. 2. Multiple soft tissue metastases, new or increased compared to the prior study. 3. New right retroperitoneal nodule, presumed metastatic node. 4. New left renal or retroperitoneal lesion, suspicious for metastasis. 5. Stable hepatic cyst. 6. Stable thyroid lesion. Electronically Signed: Coretta Conklin MD at 17:11 EDT Tel , Service support , Abdomen/Pelvis CT 10/23/17 15:21 IMPRESSION: 1. Multiple pulmonary metastases, increased in size compared to the prior study. 2. Multiple soft tissue metastases, new or increased compared to the prior study. 3. New right retroperitoneal nodule, presumed metastatic node. 4. New left renal or retroperitoneal lesion, suspicious for metastasis. 5. Stable hepatic cyst. 6. Stable thyroid lesion. Electronically Signed: Coretta Conklin MD at 17:12 EDT Tel , Service support , Brain CT 10/23/17 15:21 IMPRESSION: 1. No acute process. No evidence of recurrent mass. 2. Postsurgical changes in the left parietal lobe. Electronically Signed: Coretta Conklin MD at 16:40 EDT Tel , Service support , Assessment/Plan All Active Problems (Last Reviewed 10/03/17 @ 14:42 by Marisa Sanders) Acute respiratory failure with hypoxia (Acute) Lactic acidosis (Acute) Elevated liver enzymes (Acute) Hypokalemia (Acute) Non-Hodgkin lymphoma (Acute) Hypertrophy of breast (Acute) Personal history of malignant neoplasm of breast (Acute) URI (upper respiratory infection) (Acute) Abnormal surgical wound (Acute) Tachycardia (Acute) Macrocytic anemia (Acute) RECOMMENDATIONS: 1. Continue systemic anticoagulation 2. Oncology to discuss prognosis 3. Wean oxygen as tolerated 4. Increase activity as tolerated 5. Agree with holding antibiotics and steroids IMPRESSIONS: 1. Acute hypoxic respiratory insufficiency secondary to probable PE CT scan of the chest was not consistent with acute pulmonary embolism, but patient has been found to have a DVT of the lower extremity. Patient did present with tachycardia and decreased saturations. Clinical suspicion for subclinical PE leading to acute hypoxic respiratory insufficiency. Patient is appropriately on Lovenox therapy. Unclear data on the use of 10 A inhibitors in the setting of active malignancy. Would not recommend intubation as recovery would be highly unlikely given progressive cancer. Patient is refusing any noninvasive therapy such as BiPAP at this time 2. Metastatic breast cancer/stage IV high-grade diffuse B-cell lymphoma/ leukopenia/anemia of chronic disease CT scans show progression of disease despite aggressive stance by oncology. Will await oncology consult, but prognosis appears to be grim at this time. Patient may be better served by using comfort measures moving forward. Did not address this with the patient directly as oncology has not had an opportunity to evaluate the patient. 3. Hepatitis Clinical suspicion for elevation of liver enzymes secondary to hypoxic damage. Patient has responded well to hemodynamic support. 4. Morbid obesity/anxiety/advanced age Complicates care, management, recovery and prognosis. Code Visit Inpatient E&M: 02855 Init Hosp L3
[2017-10-24] MEDS: LORazepam 0.5 MG Tablet 0.25 MG PO (12:01)
--- NOTE | 2017-10-24 12:36 | CASEMGMT ---
Face to Face with patient for initial transition planning/care coordination assessment. RN CM introduced self and role at [facility], pt voices understanding and consents to assessment at this time. Pt is sitting up in bed in no distress at this time. Pt is A/Ox4 at this time and answers all questions appropriately at this time. Care providers, pharmacy, and demographics verified. See attached link. Pt voices no further concerns/needs at this time. Advised pt to ask for CM if any further questions/concerns/needs arise, voices understanding. CM to follow for any further discharge planning/needs. PLAN: TBD SStbeto RN CHANTEL
--- NOTE | 2017-10-24 13:23 | CASEMGMT ---
RN CHANTEL told SW that patient and family agreed to talk with Palliative/Hospice. They also would like for patient to go to [facility]. SW called Palliative/Hospice and made referral. They asked if 3p would work. SW checked with family and 3p would be fine. SW also called [facility] and left a voice mail with referral as well as faxed over information. Plan: Referral made to Palliative Care as well as [facility]. Carlota WOODALL HAND MOUNTER
[2017-10-24] MEDS: Acetaminophen 325 MG Tablet 650 MG PO (13:57)
--- NOTE | 2017-10-24 14:35 | PN_ITS ---
Patient Problems: Active and Suspected Problems (Last Reviewed 10/03/17 @ 14:42 by Marisa Sanders) Acute respiratory failure with hypoxia (Acute) Lactic acidosis (Acute) Elevated liver enzymes (Acute) Hypokalemia (Acute) Subjective: Patient seen and examined. Continues to complain of dry hacking cough. She notes shortness of breath is slightly improved. - Physical Exam General: Alert, Oriented x3, Cooperative, - - Ill-appearing. HEENT: Atraumatic, PERRLA, EOMI, Normocephalic Neck: Supple, No JVD, Negative Carotid Bruits Lungs: Clear to auscultation, Diminished Cardiovascular: Regular Rhythm, Normal S1, Normal S2, No murmurs, Tachycardic Abdomen: Bowel Sounds Present, Soft, Non Tender, Non-Distended, Obese Extremities: No clubbing, No cyanosis, Edema - +2 bilateral lower extremity Skin: No rashes, No breakdown, - - Right scapular area sebaceous cyst Musculoskeletal: No Tenderness to Palpation of Joints or Extremities Neurological: Cranial nerves II-XII grossly intact, Neuro grossly intact Psych/Mental Status: Anxious Vital Signs Temp Pulse Resp BP Pulse Ox 98.8 F 118 H 16 124/67 H 95 10/24/17 12:20 10/24/17 12:20 10/24/17 12:20 10/24/17 12:20 10/24/17 12:20 Oxygen Flow Rate (L/min) 4 Oxygen Delivery Method Nasal Cannula Weight: 226 lb 6.636 oz Body Mass Index (BMI) 44.4 Intake and Output for Last 24 Hours 10/22/17 10/23/17 10/24/17 23:59 23:59 23:59 Intake Total 694 / 694 1188 / 1188 Output Total 875 / 875 400 / 400 Balance -181 / -181 788 / 788 Laboratory Tests Past 24 Hrs 10/23/17 10/23/17 10/24/17 18:35 21:20 00:00 WBC RBC Hgb Hct MCV MCH MCHC RDW RDW Differential Plt Count MPV Neut % (Auto) Absolute Neuts (auto) Absolute Lymphs (auto) Total Counted Neutrophils % (Manual) Band Neutrophils % Lymphocytes % (Manual) Monocytes % (Manual) Eosinophils % (Manual) Myelocytes % Promyelocytes % Diff Path Review Platelet Estimate RBC Morphology Anisocytosis Sodium Potassium Chloride Carbon Dioxide Anion Gap BUN Creatinine Estim Creat Clear Calc Est GFR (MDRD) Af Amer Est GFR (MDRD) Non-Af BUN/Creatinine Ratio Glucose Calcium Total Bilirubin AST ALT Alkaline Phosphatase Troponin I < 0.015 < 0.015 < 0.015 Total Protein Albumin Globulin Albumin/Globulin Ratio 10/24/17 10/24/17 05:50 05:50 WBC 4.0 L RBC 1.99 L Hgb 7.3 L Hct 22.8 L MCV 114.6 H MCH 36.7 H MCHC 32.0 RDW 16.6 H RDW Differential 68.3 H Plt Count 263 MPV 12.9 H Neut % (Auto) Not Reportable Absolute Neuts (auto) 1.5 L Absolute Lymphs (auto) 2.12 Total Counted 100 Neutrophils % (Manual) 37 L Band Neutrophils % 1 Lymphocytes % (Manual) 53 H Monocytes % (Manual) 6 Eosinophils % (Manual) 1 Myelocytes % 1 H Promyelocytes % 1 H Diff Path Review May foll Platelet Estimate ADEQUATE RBC Morphology N CHROM Anisocytosis 1+ Sodium 139 Potassium 3.5 Chloride 103 Carbon Dioxide 28.0 Anion Gap 8 BUN 16 Creatinine 0.58 Estim Creat Clear Calc 78.81 Est GFR (MDRD) Af Amer 129 Est GFR (MDRD) Non-Af 107 BUN/Creatinine Ratio 27.4 H Glucose 110 H Calcium 8.5 Total Bilirubin 1.30 H AST 145 H ALT 432 H Alkaline Phosphatase 43 L Troponin I Total Protein 6.4 Albumin 3.2 Globulin 3.2 Albumin/Globulin Ratio 1.0 Medical Necessity - Tobacco Use Smoking Status: Never smoker Tobacco Use: Non-smoker Assessment/Plan All Active Problems (Last Reviewed 10/03/17 @ 14:42 by Marisa Sanders) Acute respiratory failure with hypoxia (Acute) Lactic acidosis (Acute) Elevated liver enzymes (Acute) Hypokalemia (Acute) Non-Hodgkin lymphoma (Acute) Hypertrophy of breast (Acute) Personal history of malignant neoplasm of breast (Acute) URI (upper respiratory infection) (Acute) Abnormal surgical wound (Acute) Tachycardia (Acute) Macrocytic anemia (Acute) 1. Acute hypoxic respiratory failure secondary to probable PE-CT of chest did not demonstrate acute PE. Patient was noted to have left lower extremity DVT. Continue weight-based Lovenox. Patient remains tachycardic intermittently. Continue supplemental oxygen to maintain O2 at or above 90%. Patient has refused BiPAP during admission. Pulmonary medicine consulted. 2. Acute left lower extremity DVT-continue therapeutic subcu Lovenox. 3. 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 Brock consulted. Patient has agreed to Hospice/Palliative consult given poor prognosis. Continue pain control with as needed regimen. 4. Lactic acidosis-resolved. Suspect secondary #1. 5. Anxiety-continue home Klonopin regimen. As needed Ativan. 6. Hepatitis-improving. Continue monitor. 7. Morbid obesity-encourage diet and lifestyle modifications. Nutrition consult. DVT prophylaxis-Lovenox This patient was seen by KILEY Meadows under the supervision of Dr. Ferrari.
--- NOTE | 2017-10-24 14:39 | CASEMGMT ---
Addendum entered by Nadiya Ceron 10/24/17 15:07: Per Catherine from Hospice, pt/family is not agreeing to Palliative/hospice at this time. They took the information at this time for future reference. Brittany JEAN CM Original Note: Catherine from [facility] is here to meet with pt/family regarding Palliative/Hospice care. Brittany JEAN CM
[2017-10-24 15:19] LABS: Pathologist Review Reviewed
[2017-10-24 15:22] LABS: Pathologist Review Reviewed
[2017-10-24] MEDS: Metoprolol Tartrate 25 MG Tablet PO (16:32)
[2017-10-24] MEDS: Glucerna Shake 120 ML LIQUID PO (17:12)
--- NOTE | 2017-10-24 18:29 | ONC.CON.INP2 ---
- Problem List (1) Breast cancer, right breast Status: Chronic Qualifiers: Breast location: unspecified site of breast Estrogen receptor status: unspecified Patient sex: female Qualified Code(s): C50.911 - Malignant neoplasm of unspecified site of right female breast (2) Secondary malignant neoplasm of lung Status: Chronic Qualifiers: Laterality: unspecified laterality Qualified Code(s): C78.00 - Secondary malignant neoplasm of unspecified lung (3) DVT (deep venous thrombosis) Status: Acute (4) Pancytopenia Status: Chronic (5) Acute respiratory failure with hypoxia Status: Acute (6) Lactic acidosis Status: Acute (7) 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 Ferrari Consult Results: Metastatic breast cancer, progressive disease Subjective Date of Service:: 10/24/17 Chief Complaint: SOB, BLE edema History of Present Illness: Shunt is a 77-year-old female with widely metastatic breast cancer to lungs, regional and nonregional lymph nodes, soft tissues and brain presenting with progressively increasing dyspnea and no left lower extremity DVT. She was diagnosed with grade 3 infiltrating ductal carcinoma of the right breast (T1c, N0, Mx), ER positive, Her2 equivocal FISH status post lumpectomy on 06/12/2012 followed by adjuvant anastrazole. 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 In April 2015, CT scans obtained for lymphoma surveillance revealed soft tissue mass in the left pulmonary ligament measuring 3.5 x 4.5 cm, confirmed PET avid with a corresponding SUB of 3.9. The patient was [facility] to [facility] bx. She was lost to follow up until October 2015, when she developed right breast mass, later biopsied on 10/22/15 and found to be positive for adenocarcinoma, ER positive and HER2 gretchen negative. Underwent EUS on 9/7/16 at [facility]. Bx positive for metastatic adenocarcinoma, ER positive, IN negative, HER2 negative-consistent with breast primary. Anastrazole dc'd 11/19/15. Faslodex began 11/26/15. Ibrance began 01/21/16. Faslodex and Ibrance dc'd on 03/17/16 progressive disease. Began tamoxifen. Progressive disease on tamoxifen in 05/26/16 and so restarted Aromasin. She started Herceptin because Her2 positive by IHC on 07/14/2016. She remained on Herceptin and Aromasin until she developed a skin lesions on the posterior aspects of neck aspiration bx showed necrotic tissue on 05/10/2017. She had CT neck,chest and abdomen done on 06/09/2017 which showed progressive disease. She complained of R arm weakness so CT head was requested, which showed L brain mass on 06/16/2017. She had MRI on 06/20/2017 which confirmed a solitary brain lesion. She was referred to [facility], had craniotomy om 07/05/2017 with resection, Pathology showed Metastatic Breast cancer, ER/IN positive, Her2 negative. She was restarted on high-dose tamoxifen 40 mg daily and Megace bone marrow biopsy to further evaluate for pancytopenia was planned but could not be done because the patient could not lay flat for the procedure. Her recent care has been under the care of Dr. 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 (Chronic) Peripheral edema (Chronic) Chronic pain (Chronic) ER+ (estrogen receptor positive status) (Chronic) Multiple skin nodules (Chronic) Brain metastasis (Chronic) Past Medical/Surgical History: Past Medical History - Most Recent Inpatient Visit Past Medical History Start: 10/23/17 18:00 Text: Status: Complete Freq: ONCE Protocol: Document 10/23/17 18:00 LIEN (Rec: 10/23/17 18:06 LIEN [id number]) BMI Required to complete PMH What is Patient's BMI 44.6 Past Medical History Unable History Recalled Yes Query Text:Pt Unable/Family Not Present Neurologic Medical History Hx Stroke/TIA No Hx Dementia/Alzheimer's No Hx Parkinson's Disease No Hx Seizures No Hx Multiple Sclerosis No Hx Migraines No Cardiac Medical History VTE Present on Admission No Hx of Deep Vein Thrombosis/VTE/PE No Hx Hypertension No Hx Chest Pain/Angina No Hx Heart Attack No Hx Cardiac Surgery/Stents/Etc. No Hx Heart Failure No Hx Pacemaker/AICD No Hx Irregular Heartbeat and/or Afib Yes: PVCS Hx Anticoagulant Therapy No Query Text:(Coumadin, Aspirin, Plavix, Xarelto, etc.) Hx Pain in Legs when Walking/Leg Cramps No Respiratory Medical History Hx COPD No Hx Emphysema No Hx Smoking No Smoking Status Never smoker Tobacco Use Non-smoker Hx Tobacco Use in last 12 months No Hx Sleep Apnea No Do you snore loudly (louder than talking Yes or can be heard through closed doors)? Do you often feel tired/ fatigued/ Yes sleepy during daytime? Has anyone observed you stop breathing No during sleep? STOP Results Positive GI Medical History Hx Ulcer No Hx Hepatitis No Hx Cirrhosis No Hx GI Bleed No Hx Unplanned Weight Loss No Genitourinary Medical History Indwelling Catheter in Place on Arrival/ Yes Admission Hx Renal Disease No Hx Dialysis No Musculoskeletal History Hx Arthritis Yes: KNEES Hx Rheumatoid Arthritis No Endocrine Medical History Hx Diabetes No Hx Thyroid Disease No Hematologic Medical History Hx of Blood Transfusion Yes Hx of Transfusion in last 3 Months No Ever experience any problems with No transfusion(s)? Hx of Preganancy in last 3 Months No Nurse Filling Out Transfusion & JWILLIAMS Questions: Date: 10/23/17 Time: 18:06 Psycho/Social Medical History Hx Depression No Hx Anxiety Yes Hx Behavior Disorder No Hx Alcohol Use No Hx Substance Use No Other Medical History Hx Blood Disorders No Hx Anemia No Hx Cancer Yes: RT BREAST, LEFT LUNG,r lung, BRAIN Hx Drug Resistant Organism No Wound/Pressure Injury Present on Arrival No /Admission Query Text:If yes, chart assessment in Shift/Clinical Findings Central Line/PICC/VAD Present on Arrival No /Admission Antibiotics within last 7 days? No Methicillin Resistant Staphylococcus aureus Screening Active MRSA No Risk for Readmission Number of Risk Factors 4 At Risk for Readmission Patient is At Risk For Readmission Patient is eligible for Call Back Y Past Medical History (Last Reviewed 10/03/17 @ 14:42 by Marisa Sanders) Anxiety (Acute) Arthritis (Acute) Back problem (Acute) Breast cancer (Acute) Breast lump in female (Acute) GERD (gastroesophageal reflux disease) (Acute) History of swelling of feet (Acute) Malignant neoplasm of unspecified site of right female breast (Acute) Neck pain (Acute) Non-Hodgkin lymphoma (Acute) Sebaceous cyst (Acute) Secondary malignant neoplasm of unspecified lung (Acute) Thrombocytopenia (Acute) brain surgery tumor removal (Acute) Past Surgical History (Last Reviewed 10/03/17 @ 14:42 by Marisa Sanders) H/O arthroscopy of right knee (Acute) H/O: hysterectomy (Acute) History of section (Acute) History of lumpectomy of right breast (Acute) Hx of cholecystectomy (Acute) Status post left foot surgery (Acute) Maternal Family History: Family History (Last Reviewed 10/03/17 @ 14:42 by Marisa Sanders) Mother Lung cancer Colon cancer Stomach cancer Father COPD (chronic obstructive pulmonary disease) Sister Breast cancer Brother Heart disease Family History: - - With history of colon cancer, lung cancer and stomach cancer. Paternal Family History: Family History (Last Reviewed 10/03/17 @ 14:42 by Marisa Sanders) Mother Lung cancer Colon cancer Stomach cancer Father COPD (chronic obstructive pulmonary disease) Sister Breast cancer Brother Heart disease Family History: COPD - Social History Lives: Alone - Patient lives with her son. Smoking Status: Never smoker Tobacco Use: Non-smoker Alcohol: None Drugs: None Allergies/Adverse Reactions: Allergy/AdvReac Type Severity Reaction Status Date / Time Latex, Natural Rubber Allergy Severe Hives Verified 10/03/17 14:43 aloe vera AdvReac Severe Rash Verified 10/03/17 14:43 egg AdvReac Severe Diarrhea Verified 10/03/17 14:43 hydrocodone bitartrate AdvReac Severe Vomiting Verified 10/03/17 14:43 [From Vicodin] morphine AdvReac Severe Other Verified 10/03/17 14:43 TAPE AdvReac Mild redness Uncoded 10/03/17 14:43 Review of Systems Constitutional:: Reports: Weakness, Fatigue, Weight gain - Increasing lower body edema. Denies: Fever, Sweats, Appetite change, Chills Cardiovascular:: Reports: Ankle swelling, Dyspnea on exertion, Orthopnea, Peripheral edema, Shortness of breath. Denies: Chest pain, Palpitations, PND Respiratory: Reports: Shortness of Breath, Shortness of breath at rest, Shortness of breath upon exertion. Denies: Cough, Hemoptysis, Wheezing Gastrointestinal:: Reports: Constipation. Denies: Abdominal pain, Nausea, Vomiting, Diarrhea, Hematochezia Genitourinary: Reports: Incontinence. Denies: Dysuria, Hematuria, Flank pain Musculoskeletal:: Denies: Back pain, Myalgia, Arthralgia Skin: Reports: Lesions - Cutaneous nodules the most prominent is at the back of the neck progressively increasing in size. Denies: Rash, Skin Changes, Wounds Neurological:: Denies: Headache, Dizziness, Visual changes, Tinnitus, Hearing loss Psychiatric: Reports: Anxiety. Denies: Depression, Homicidal Ideations, Suicidal Ideations Vital Signs Height 5 ft Weight: 102.7 kg Weight in Pounds 226.4 lbs Pulse Ox 92 Temperature 98.8 F Pulse Rate 118 Respiratory Rate 16 Blood Pressure 126/76 Blood Pressure Position Semi-Fowlers - Physical Exam General: Alert, Oriented x3, No apparent distress, - - Obese ECOG 4 HEENT: Atraumatic, PERRLA, EOMI, Normocephalic Oropharynx:: Pale mucosa, Dry mucosa Neck:: Supple, Trachea midline. Negative for: JVD, bilateral Cardiac:: Regular rate, Regular rhythm, Normal S1, Normal S2. Negative for: Murmur Lungs: Diminished, Shortness of breath, Excusion symmetrical. Negative for: Rhonchi, Wheezes Abdomen:: Soft, Non-tender, Obese. Negative for: Hepatosplenomegaly Extremities:: Edema - Gross bilateral lower extremities. Negative for: Cyanosis Neurological: Neuro grossly intact Skin:: Lesions - A soft tissue mass over the back of the neck was a necrotic center and telangiectatic surface most consistent with a metastatic lesion, Ecchymosis. Negative for: Rash Psychiatric:: Anxious, Appropriate affect, Euthymic Lymphatics:: Negative for: Cervical lymphadenopathy, Supraclavicular lymphadenopathy, Axillary lymphadenopathy Laboratory Data: Laboratory Tests 10/24/17 10/24/17 10/24/17 Range/Units 05:50 05:50 00:00 WBC 4.0 L (4.4-11.0) K/mm3 RBC 1.99 L (4.2-5.4) M/mm3 Hgb 7.3 L (12.0-15.0) g/dl Hct 22.8 L (37-47) % MCV 114.6 H (81-99) fL MCH 36.7 H (27.0-32.0) pg MCHC 32.0 (32-36) g/gl RDW 16.6 H (11.6-14.6) % RDW Differential 68.3 H (35.1-43.9) fl Plt Count 263 (150-450) K/mm3 MPV 12.9 H (6.2-12.0) fl Neut % (Auto) Not Reportable Absolute Neuts (auto) 1.5 L (2.0-7.7) X10^3/uL Absolute Lymphs (auto) 2.12 (0.83-4.51) X10^3/ul Total Counted 100 (MANUAL DIFF) Neutrophils % (Manual) 37 L (47-70) % Band Neutrophils % 1 (0-5) % Lymphocytes % (Manual) 53 H (19-41) % Monocytes % (Manual) 6 (0-10) % Eosinophils % (Manual) 1 (0-5) % Myelocytes % 1 H (0-0) Promyelocytes % 1 H (0-0) Diff Path Review Reviewed Platelet Estimate ADEQUATE (ADEQ) RBC Morphology N CHROM (NORM C&C) NORMAL Anisocytosis 1+ Sodium 139 (136-145) mmol/L Potassium 3.5 (3.5-5.1) mmol/L Chloride 103 (98-107) mmol/L Carbon Dioxide 28.0 (21.0-32.0) mmol/L Anion Gap 8 (5-15) BUN 16 (7-18) mg/dL Creatinine 0.58 (0.55-1.02) mg/dL Estim Creat Clear Calc 78.81 ml/min Est GFR (MDRD) Af Amer 129 (>60) mL/min Est GFR (MDRD) Non-Af 107 (>60) mL/min BUN/Creatinine Ratio 27.4 H (10-20) RATIO Glucose 110 H (74-106) mg/dL Calcium 8.5 (8.5-10.1) mg/dL Total Bilirubin 1.30 H (0.20-1.00) mg/dL AST 145 H (15-37) U/L ALT 432 H (13-56) U/L Alkaline Phosphatase 43 L (45-117) U/L Troponin I < 0.015 (<0.045) ng/mL Total Protein 6.4 (6.4-8.2) g/dL Albumin 3.2 (3.2-5.0) g/dL Globulin 3.2 (2.2-4.2) g/dL Albumin/Globulin Ratio 1.0 (0.9-2.4) RATIO 10/23/17 10/23/17 Range/Units 21:20 18:35 WBC (4.4-11.0) K/mm3 RBC (4.2-5.4) M/mm3 Hgb (12.0-15.0) g/dl Hct (37-47) % MCV (81-99) fL MCH (27.0-32.0) pg MCHC (32-36) g/gl RDW (11.6-14.6) % RDW Differential (35.1-43.9) fl Plt Count (150-450) K/mm3 MPV (6.2-12.0) fl Neut % (Auto) Absolute Neuts (auto) (2.0-7.7) X10^3/uL Absolute Lymphs (auto) (0.83-4.51) X10^3/ul Total Counted (MANUAL DIFF) Neutrophils % (Manual) (47-70) % Band Neutrophils % (0-5) % Lymphocytes % (Manual) (19-41) % Monocytes % (Manual) (0-10) % Eosinophils % (Manual) (0-5) % Myelocytes % (0-0) Promyelocytes % (0-0) Diff Path Review Platelet Estimate (ADEQ) RBC Morphology (NORM C&C) NORMAL Anisocytosis Sodium (136-145) mmol/L Potassium (3.5-5.1) mmol/L Chloride (98-107) mmol/L Carbon Dioxide (21.0-32.0) mmol/L Anion Gap (5-15) BUN (7-18) mg/dL Creatinine (0.55-1.02) mg/dL Estim Creat Clear Calc ml/min Est GFR (MDRD) Af Amer (>60) mL/min Est GFR (MDRD) Non-Af (>60) mL/min BUN/Creatinine Ratio (10-20) RATIO Glucose (74-106) mg/dL Calcium (8.5-10.1) mg/dL Total Bilirubin (0.20-1.00) mg/dL AST (15-37) U/L ALT (13-56) U/L Alkaline Phosphatase (45-117) U/L Troponin I < 0.015 < 0.015 (<0.045) ng/mL Total Protein (6.4-8.2) g/dL Albumin (3.2-5.0) g/dL Globulin (2.2-4.2) g/dL Albumin/Globulin Ratio (0.9-2.4) RATIO Diagnostic Data: Diagnostic Data Chest X-Ray 10/23/17 10:58 IMPRESSION: Exam limited due to motion artifact with question of prominent pulmonary vasculature. No evidence of large focal consolidation. Nodular density overlying the left lateral lung concerning for metastatic disease as previously noted. Electronically Signed: Luis Block DO at 11:35 EDT , Service support , Chest CTA 10/23/17 11:54 IMPRESSION: 1. Multiple pulmonary metastases, increased in size compared to the prior study. 2. Multiple soft tissue metastases, new or increased compared to the prior study. 3. New right retroperitoneal nodule, presumed metastatic node. 4. New left renal or retroperitoneal lesion, suspicious for metastasis. 5. Stable hepatic cyst. 6. Stable thyroid lesion. Electronically Signed: Coretta Conklin MD at 17:11 EDT Tel , Service support , Abdomen/Pelvis CT 10/23/17 15:21 IMPRESSION: 1. Multiple pulmonary metastases, increased in size compared to the prior study. 2. Multiple soft tissue metastases, new or increased compared to the prior study. 3. New right retroperitoneal nodule, presumed metastatic node. 4. New left renal or retroperitoneal lesion, suspicious for metastasis. 5. Stable hepatic cyst. 6. Stable thyroid lesion. Electronically Signed: Coretta Conklin MD at 17:12 EDT Tel , Service support , Brain CT 10/23/17 15:21 IMPRESSION: 1. No acute process. No evidence of recurrent mass. 2. Postsurgical changes in the left parietal lobe. Electronically Signed: Coretta Conklin MD at 16:40 EDT Tel , Service support , Doppler ultrasound of the lower extremities October 23, 2017 consistent with a left lower extremity posterior tibial DVT Assessment and Plan 77-year-old female with progressive widely metastatic breast cancer to lungs, regional and nonregional lymph nodes, soft tissues and brain. She is status post partial mastectomy in 2012 with documented metastatic disease since 2016 extensively treated with multiple lines of hormonal therapy. She presents with progressively increasing dyspnea due to disease progression in the chest and the left lower extremity DVT but no clear evidence for central PE on CTA. She has exhausted all hormonal therapy lines of treatment. Dr. Brock considered systemic chemotherapy but apparently due to cytopenias this has not been started and the bone marrow biopsy was not possible due to patient's dyspnea precluding her from laying flat for the procedure. Her performance status has steadily declined. Recommendations from oncology: 1. DC tamoxifen due to no diagnosis of DVT (contraindication) and disease progression despite high dose. 2. Treat DVT preferably with Lovenox due to underlying malignancy induced hypercoagulability. Systemic anticoagulation can be used as long as platelet count is over 50 K. 3. With failing performance status and cytopenias she is not a candidate for systemic chemotherapy. 4. Met with the patient and multiple family members. They all understand that the prognosis is poor. Patient wishes to go home but is not accepting hospice service yet and hoping that she may improve to receive further systemic therapy. I do not believe going home is feasible without the maximum support that would require hospice. Patient and family are agreeable to intermediate facility placement with palliative care however. I think this option is reasonable and if she does not improve to a point where she can tolerate systemic chemotherapy transition into maximum comfort measures on the hospice program would be most appropriate. With patient's permission I met privately with her sister and son and they are in agreement and understand that her disease as at its terminal stage. Thank you for involving me in her care Medications: Prescriptions This Visit Medication Instructions Recorded Furosemide [Lasix] 20 mg PO DAILY 10/23/17 Medications Added to Medication List This Visit Category Date Time Status Famotidine [Pepcid] Med 10/24/17 10:00 Active 20 mg PO DAILY Furosemide [Lasix] Med 10/24/17 10:00 Active 20 mg PO DAILY Glucerna Shake Med 10/24/17 18:00 Active 120 ml PO 4X/DAY Primary Care Provider: Alex Vizcarra Referring Provider:
--- NOTE | 2017-10-24 18:39 | CON.PCM_ITS ---
- Problem List (1) Breast cancer, right breast Status: Chronic Qualifiers: Breast location: unspecified site of breast Estrogen receptor status: unspecified Patient sex: female Qualified Code(s): C50.911 - Malignant neoplasm of unspecified site of right female breast (2) Secondary malignant neoplasm of lung Status: Chronic Qualifiers: Laterality: unspecified laterality Qualified Code(s): C78.00 - Secondary malignant neoplasm of unspecified lung (3) DVT (deep venous thrombosis) Status: Acute (4) Pancytopenia Status: Chronic (5) Acute respiratory failure with hypoxia Status: Acute (6) Lactic acidosis Status: Acute (7) 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 Ferrari Consult Results: Metastatic breast cancer, progressive disease Subjective Date of Service:: 10/24/17 Chief Complaint: SOB, BLE edema History of Present Illness: Shunt is a 77-year-old female with widely metastatic breast cancer to lungs, regional and nonregional lymph nodes, soft tissues and brain presenting with progressively increasing dyspnea and no left lower extremity DVT. She was diagnosed with grade 3 infiltrating ductal carcinoma of the right breast (T1c, N0, Mx), ER positive, Her2 equivocal FISH status post lumpectomy on 06/12/2012 followed by adjuvant anastrazole. 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 In April 2015, CT scans obtained for lymphoma surveillance revealed soft tissue mass in the left pulmonary ligament measuring 3.5 x 4.5 cm, confirmed PET avid with a corresponding SUB of 3.9. The patient was [facility]. She was lost to follow up until October 2015, when she developed right breast mass, later biopsied on 10/22/15 and found to be positive for adenocarcinoma, ER positive and HER2 gretchen negative. Underwent EUS on 9/7/16 at [facility]. Bx positive for metastatic adenocarcinoma, ER positive, UT negative, HER2 negative-consistent with breast primary. Anastrazole dc'd 11/19/15. Faslodex began 11/26/15. Ibrance began 01/21/16. Faslodex and Ibrance dc'd on 03/17/16 progressive disease. Began tamoxifen. Progressive disease on tamoxifen in 05/26/16 and so restarted Aromasin. She started Herceptin because Her2 positive by IHC on 07/14/2016. She remained on Herceptin and Aromasin until she developed a skin lesions on the posterior aspects of neck aspiration bx showed necrotic tissue on 2017. She had CT neck,chest and abdomen done on 06/09/2017 which showed progressive disease. She complained of R arm weakness so CT head was requested , which showed L brain mass on 06/16/2017. She had MRI on 06/20/2017 which confirmed a solitary brain lesion. She was referred to [facility], had craniotomy om 07/05/2017 with resection, Pathology showed Metastatic Breast cancer, ER/UT positive , Her2 negative. She was restarted on high-dose tamoxifen 40 mg daily and Megace bone marrow biopsy to further evaluate for pancytopenia was planned but could not be done because the patient could not lay flat for the procedure. Her recent care has been under the care of Dr. 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 (Chronic) Peripheral edema (Chronic) Chronic pain (Chronic) ER+ (estrogen receptor positive status) (Chronic) Multiple skin nodules (Chronic) Brain metastasis (Chronic) Past Medical/Surgical History: Past Medical History - Most Recent Inpatient Visit Past Medical History Start: 10/23/17 18: 00 Text: Status: Complete Freq: ONCE Protocol: Document 10/23/17 18:00 LIEN (Rec: 10/23/17 18:06 LIEN [id number]) BMI Required to complete PMH What is Patient's BMI 44.6 Past Medical History Unable History Recalled Yes Query Text:Pt Unable/Family Not Present Neurologic Medical History Hx Stroke/TIA No Hx Dementia/Alzheimer's No Hx Parkinson's Disease No Hx Seizures No Hx Multiple Sclerosis No Hx Migraines No Cardiac Medical History VTE Present on Admission No Hx of Deep Vein Thrombosis/VTE/PE No Hx Hypertension No Hx Chest Pain/Angina No Hx Heart Attack No Hx Cardiac Surgery/Stents/Etc. No Hx Heart Failure No Hx Pacemaker/AICD No Hx Irregular Heartbeat and/or Afib Yes: PVCS Hx Anticoagulant Therapy No Query Text:(Coumadin, Aspirin, Plavix, Xarelto, etc.) Hx Pain in Legs when Walking/Leg Cramps No Respiratory Medical History Hx COPD No Hx Emphysema No Hx Smoking No Smoking Status Never smoker Tobacco Use Non-smoker Hx Tobacco Use in last 12 months No Hx Sleep Apnea No Do you snore loudly (louder than talking Yes or can be heard through closed doors)? Do you often feel tired/ fatigued/ Yes sleepy during daytime? Has anyone observed you stop breathing No during sleep? STOP Results Positive GI Medical History Hx Ulcer No Hx Hepatitis No Hx Cirrhosis No Hx GI Bleed No Hx Unplanned Weight Loss No Genitourinary Medical History Indwelling Catheter in Place on Arrival/ Yes Admission Hx Renal Disease No Hx Dialysis No Musculoskeletal History Hx Arthritis Yes: KNEES Hx Rheumatoid Arthritis No Endocrine Medical History Hx Diabetes No Hx Thyroid Disease No Hematologic Medical History Hx of Blood Transfusion Yes Hx of Transfusion in last 3 Months No Ever experience any problems with No transfusion(s)? Hx of Preganancy in last 3 Months No Nurse Filling Out Transfusion & JWILLIAMS Questions: Date: 10/23/17 Time: 18:06 Psycho/Social Medical History Hx Depression No Hx Anxiety Yes Hx Behavior Disorder No Hx Alcohol Use No Hx Substance Use No Other Medical History Hx Blood Disorders No Hx Anemia No Hx Cancer Yes: RT BREAST, LEFT LUNG,r lung, BRAIN Hx Drug Resistant Organism No Wound/Pressure Injury Present on Arrival No /Admission Query Text:If yes, chart assessment in Shift/Clinical Findings Central Line/PICC/VAD Present on Arrival No /Admission Antibiotics within last 7 days? No Methicillin Resistant Staphylococcus aureus Screening Active MRSA No Risk for Readmission Number of Risk Factors 4 At Risk for Readmission Patient is At Risk For Readmission Patient is eligible for Call Back Y Past Medical History (Last Reviewed 10/03/17 @ 14:42 by Marisa Sanders) Anxiety (Acute) Arthritis (Acute) Back problem (Acute) Breast cancer (Acute) Breast lump in female (Acute) GERD (gastroesophageal reflux disease) (Acute) History of swelling of feet (Acute) Malignant neoplasm of unspecified site of right female breast (Acute) Neck pain (Acute) Non-Hodgkin lymphoma (Acute) Sebaceous cyst (Acute) Secondary malignant neoplasm of unspecified lung (Acute) Thrombocytopenia (Acute) brain surgery tumor removal (Acute) Past Surgical History (Last Reviewed 10/03/17 @ 14:42 by Marisa Sanders) H/O arthroscopy of right knee (Acute) H/O: hysterectomy (Acute) History of section (Acute) History of lumpectomy of right breast (Acute) Hx of cholecystectomy (Acute) Status post left foot surgery (Acute) Maternal Family History: Family History (Last Reviewed 10/03/17 @ 14:42 by Marisa Sanders) Mother Lung cancer Colon cancer Stomach cancer Father COPD (chronic obstructive pulmonary disease) Sister Breast cancer Brother Heart disease Family History: - - With history of colon cancer, lung cancer and stomach cancer. Paternal Family History: Family History (Last Reviewed 10/03/17 @ 14:42 by Marisa Sanders) Mother Lung cancer Colon cancer Stomach cancer Father COPD (chronic obstructive pulmonary disease) Sister Breast cancer Brother Heart disease Family History: COPD - Social History Lives: Alone - Patient lives with her son. Smoking Status: Never smoker Tobacco Use: Non-smoker Alcohol: None Drugs: None Allergies/Adverse Reactions: Allergy/AdvReac Type Severity Reaction Status Date / Time Latex, Natural Rubber Allergy Severe Hives Verified 10/03/17 14:43 aloe vera AdvReac Severe Rash Verified 10/03/17 14:43 egg AdvReac Severe Diarrhea Verified 10/03/17 14:43 hydrocodone bitartrate AdvReac Severe Vomiting Verified 10/03/17 14:43 [From Vicodin] morphine AdvReac Severe Other Verified 10/03/17 14:43 TAPE AdvReac Mild redness Uncoded 10/03/17 14:43 Review of Systems Constitutional:: Reports: Weakness, Fatigue, Weight gain - Increasing lower body edema. Denies: Fever, Sweats, Appetite change, Chills Cardiovascular:: Reports: Ankle swelling, Dyspnea on exertion, Orthopnea, Peripheral edema, Shortness of breath. Denies: Chest pain, Palpitations, PND Respiratory: Reports: Shortness of Breath, Shortness of breath at rest, Shortness of breath upon exertion. Denies: Cough, Hemoptysis, Wheezing Gastrointestinal:: Reports: Constipation. Denies: Abdominal pain, Nausea, Vomiting, Diarrhea, Hematochezia Genitourinary: Reports: Incontinence. Denies: Dysuria, Hematuria, Flank pain Musculoskeletal:: Denies: Back pain, Myalgia, Arthralgia Skin: Reports: Lesions - Cutaneous nodules the most prominent is at the back of the neck progressively increasing in size. Denies: Rash, Skin Changes, Wounds Neurological:: Denies: Headache, Dizziness, Visual changes, Tinnitus, Hearing loss Psychiatric: Reports: Anxiety. Denies: Depression, Homicidal Ideations, Suicidal Ideations Vital Signs Height 5 ft Weight: 102.7 kg Weight in Pounds 226.4 lbs Pulse Ox 92 Temperature 98.8 F Pulse Rate 118 Respiratory Rate 16 Blood Pressure 126/76 Blood Pressure Position Semi-Fowlers - Physical Exam General: Alert, Oriented x3, No apparent distress, - - Obese ECOG 4 HEENT: Atraumatic, PERRLA, EOMI, Normocephalic Oropharynx:: Pale mucosa, Dry mucosa Neck:: Supple, Trachea midline. Negative for: JVD, bilateral Cardiac:: Regular rate, Regular rhythm, Normal S1, Normal S2. Negative for: Murmur Lungs: Diminished, Shortness of breath, Excusion symmetrical. Negative for: Rhonchi, Wheezes Abdomen:: Soft, Non-tender, Obese. Negative for: Hepatosplenomegaly Extremities:: Edema - Gross bilateral lower extremities. Negative for: Cyanosis Neurological: Neuro grossly intact Skin:: Lesions - A soft tissue mass over the back of the neck was a necrotic center and telangiectatic surface most consistent with a metastatic lesion, Ecchymosis. Negative for: Rash Psychiatric:: Anxious, Appropriate affect, Euthymic Lymphatics:: Negative for: Cervical lymphadenopathy, Supraclavicular lymphadenopathy, Axillary lymphadenopathy Laboratory Data: Laboratory Tests 3 10/24/17 10/24/17 10/24/17 Range/Units 05:50 05:50 00:00 WBC 4.0 L (4.4-11.0) K/mm3 RBC 1.99 L (4.2-5.4) M/mm3 Hgb 7.3 L (12.0-15.0) g/dl Hct 22.8 L (37-47) % MCV 114.6 H (81-99) fL MCH 36.7 H (27.0-32.0) pg MCHC 32.0 (32-36) g/gl RDW 16.6 H (11.6-14.6) % RDW Differential 68.3 H (35.1-43.9) fl Plt Count 263 (150-450) K/mm3 MPV 12.9 H (6.2-12.0) fl Neut % (Auto) Not Reportable Absolute Neuts (auto) 1.5 L (2.0-7.7) X10^3/uL Absolute Lymphs (auto) 2.12 (0.83-4.51) X10^3/ul Total Counted 100 (MANUAL DIFF) Neutrophils % (Manual) 37 L (47-70) % Band Neutrophils % 1 (0-5) % Lymphocytes % (Manual) 53 H (19-41) % Monocytes % (Manual) 6 (0-10) % Eosinophils % (Manual) 1 (0-5) % Myelocytes % 1 H (0-0) Promyelocytes % 1 H (0-0) Diff Path Review Reviewed Platelet Estimate ADEQUATE (ADEQ) RBC Morphology N CHROM (NORM C&C) NORMAL Anisocytosis 1+ Sodium 139 (136-145) mmol/L Potassium 3.5 (3.5-5.1) mmol/L Chloride 103 (98-107) mmol/L Carbon Dioxide 28.0 (21.0-32.0) mmol/L Anion Gap 8 (5-15) BUN 16 (7-18) mg/dL Creatinine 0.58 (0.55-1.02) mg/dL Estim Creat Clear Calc 78.81 ml/min Est GFR (MDRD) Af Amer 129 (>60) mL/min Est GFR (MDRD) Non-Af 107 (>60) mL/min BUN/Creatinine Ratio 27.4 H (10-20) RATIO Glucose 110 H (74-106) mg/dL Calcium 8.5 (8.5-10.1) mg/dL Total Bilirubin 1.30 H (0.20-1.00) mg/dL AST 145 H (15-37) U/L ALT 432 H (13-56) U/L Alkaline Phosphatase 43 L (45-117) U/L Troponin I < 0.015 (<0.045) ng/mL Total Protein 6.4 (6.4-8.2) g/dL Albumin 3.2 (3.2-5.0) g/dL Globulin 3.2 (2.2-4.2) g/dL Albumin/Globulin Ratio 1.0 (0.9-2.4) RATIO 3 10/23/17 10/23/17 Range/Units 21:20 18:35 WBC (4.4-11.0) K/mm3 RBC (4.2-5.4) M/mm3 Hgb (12.0-15.0) g/dl Hct (37-47) % MCV (81-99) fL MCH (27.0-32.0) pg MCHC (32-36) g/gl RDW (11.6-14.6) % RDW Differential (35.1-43.9) fl Plt Count (150-450) K/mm3 MPV (6.2-12.0) fl Neut % (Auto) Absolute Neuts (auto) (2.0-7.7) X10^3/uL Absolute Lymphs (auto) (0.83-4.51) X10^3/ul Total Counted (MANUAL DIFF) Neutrophils % (Manual) (47-70) % Band Neutrophils % (0-5) % Lymphocytes % (Manual) (19-41) % Monocytes % (Manual) (0-10) % Eosinophils % (Manual) (0-5) % Myelocytes % (0-0) Promyelocytes % (0-0) Diff Path Review Platelet Estimate (ADEQ) RBC Morphology (NORM C&C) NORMAL Anisocytosis Sodium (136-145) mmol/L Potassium (3.5-5.1) mmol/L Chloride (98-107) mmol/L Carbon Dioxide (21.0-32.0) mmol/L Anion Gap (5-15) BUN (7-18) mg/dL Creatinine (0.55-1.02) mg/dL Estim Creat Clear Calc ml/min Est GFR (MDRD) Af Amer (>60) mL/min Est GFR (MDRD) Non-Af (>60) mL/min BUN/Creatinine Ratio (10-20) RATIO Glucose (74-106) mg/dL Calcium (8.5-10.1) mg/dL Total Bilirubin (0.20-1.00) mg/dL AST (15-37) U/L ALT (13-56) U/L Alkaline Phosphatase (45-117) U/L Troponin I < 0.015 < 0.015 (<0.045) ng/mL Total Protein (6.4-8.2) g/dL Albumin (3.2-5.0) g/dL Globulin (2.2-4.2) g/dL Albumin/Globulin Ratio (0.9-2.4) RATIO Diagnostic Data: Diagnostic Data Chest X-Ray 10/23/17 10:58 IMPRESSION: Exam limited due to motion artifact with question of prominent pulmonary vasculature. No evidence of large focal consolidation. Nodular density overlying the left lateral lung concerning for metastatic disease as previously noted. Electronically Signed: Luis Block DO at 11:35 EDT , Service support , Chest CTA 10/23/17 11:54 IMPRESSION: 1. Multiple pulmonary metastases, increased in size compared to the prior study. 2. Multiple soft tissue metastases, new or increased compared to the prior study. 3. New right retroperitoneal nodule, presumed metastatic node. 4. New left renal or retroperitoneal lesion, suspicious for metastasis. 5. Stable hepatic cyst. 6. Stable thyroid lesion. Electronically Signed: Coretta Conklin MD at 17:11 EDT Tel , Service support , Abdomen/Pelvis CT 10/23/17 15:21 IMPRESSION: 1. Multiple pulmonary metastases, increased in size compared to the prior study. 2. Multiple soft tissue metastases, new or increased compared to the prior study. 3. New right retroperitoneal nodule, presumed metastatic node. 4. New left renal or retroperitoneal lesion, suspicious for metastasis. 5. Stable hepatic cyst. 6. Stable thyroid lesion. Electronically Signed: Coretta Conklin MD at 17:12 EDT Tel , Service support , Brain CT 10/23/17 15:21 IMPRESSION: 1. No acute process. No evidence of recurrent mass. 2. Postsurgical changes in the left parietal lobe. Electronically Signed: Coretta Conklin MD at 16:40 EDT Tel , Service support , Doppler ultrasound of the lower extremities October 23, 2017 consistent with a left lower extremity posterior tibial DVT Assessment and Plan 77-year-old female with progressive widely metastatic breast cancer to lungs, regional and nonregional lymph nodes, soft tissues and brain. She is status post partial mastectomy in 2012 with documented metastatic disease since 2016 extensively treated with multiple lines of hormonal therapy. She presents with progressively increasing dyspnea due to disease progression in the chest and the left lower extremity DVT but no clear evidence for central PE on CTA. She has exhausted all hormonal therapy lines of treatment. Dr. Brock considered systemic chemotherapy but apparently due to cytopenias this has not been started and the bone marrow biopsy was not possible due to patient's dyspnea precluding her from laying flat for the procedure. Her performance status has steadily declined. Recommendations from oncology: 1. DC tamoxifen due to no diagnosis of DVT (contraindication) and disease progression despite high dose. 2. Treat DVT preferably with Lovenox due to underlying malignancy induced hypercoagulability. Systemic anticoagulation can be used as long as platelet count is over 50 K. 3. With failing performance status and cytopenias she is not a candidate for systemic chemotherapy. 4. Met with the patient and multiple family members. They all understand that the prognosis is poor. Patient wishes to go home but is not accepting hospice service yet and hoping that she may improve to receive further systemic therapy. I do not believe going home is feasible without the maximum support that would require hospice. Patient and family are agreeable to [facility] facility placement with palliative care however. I think this option is reasonable and if she does not improve to a point where she can tolerate systemic chemotherapy transition into maximum comfort measures on the hospice program would be most appropriate. With patient's permission I met privately with her sister and son and they are in agreement and understand that her disease as at its terminal stage. Thank you for involving me in her care Medications: Prescriptions This Visit Medication Instructions Recorded Furosemide [Lasix] 20 mg PO DAILY 10/23/17 Medications Added to Medication List This Visit Category Date Time Status Famotidine [Pepcid] Med 10/24/17 10:00 Active 20 mg PO DAILY Furosemide [Lasix] Med 10/24/17 10:00 Active 20 mg PO DAILY Glucerna Shake Med 10/24/17 18:00 Active 120 ml PO 4X/DAY Primary Care Provider: Alex Vizcarra Referring Provider:
[2017-10-25] VITALS (22 sets, daily range): BP systolic 101–133; BP diastolic 51–80; PULSE 103–128; RESP 18–24; TEMP 36.9–37.4; O2SAT 92–95
--- NOTE | 2017-10-25 01:05 | CPS ---
pt is unable to tolerate bipap mask.
[2017-10-25] MEDS: LORazepam 2 MG/ML Syringe 0.5 MG IV ×4 (01:27→17:34)
[2017-10-25] MEDS: oxyCODONE 5 MG Tablet PO ×2 (03:40→13:32)
[2017-10-25 04:51] LABS: Hematocrit 22.4 % (37-47); Hemoglobin 7.2 g/dl (12.0-15.0); Mean Corp Hgb Conc 32.1 g/gl (32-36); Mean Corpuscular Hgb 37.7 pg (27.0-32.0); Mean Corpuscular Volume 117.3 fL (81-99); Mean Platelet Vol. 12.3 fl (6.2-12.0); Platelet Count 279 K/mm3 (150-450); RBC Distribution Width CV 16.1 % (11.6-14.6); RBC Distribution Width SD 63.5 fl (35.1-43.9); Red Blood Count 1.91 M/mm3 (4.2-5.4); White Blood Count 3.9 K/mm3 (4.4-11.0)
[2017-10-25 04:52] LABS: Scan Indicated on CBC? Y/N NO
[2017-10-25 05:02] LABS: ALB/GLOB Ratio 0.9 RATIO (0.9-2.4); AST(SGOT) 79 U/L (15-37); Alanine Aminotransfer ALT/SGPT 332 U/L (13-56); Alkaline Phosphatase 42 U/L (45-117); Anion Gap 11 (5-15); BUN 18 mg/dL (7-18); Calcium,Total 8.5 mg/dL (8.5-10.1); Chloride 102 mmol/L (98-107); Creatinine, Serum 0.49 mg/dL (0.55-1.02); EST Glomerular Filtration Rate 132 mL/min (>60); Est Glom Filt Rate - Afr Amer 160 mL/min (>60); Estimated Creatinine Clearance 34.91 ml/min; Globulin 3.2 g/dL (2.2-4.2); Glucose 110 mg/dL (74-106); Potassium 3.8 mmol/L (3.5-5.1); Protein, Total 6.2 g/dL (6.4-8.2); Sodium Level 140 mmol/L (136-145)
[2017-10-25] MEDS: 0.9% NaCl Peripheral Flush Adult/Peds IV ×3 (05:29→17:12)
[2017-10-25] MEDS: Enoxaparin 100 MG/ML Syringe SC ×2 (05:29→17:12)
[2017-10-25] MEDS: clonazePAM 0.5 MG Tablet PO ×3 (05:29→21:09)
[2017-10-25] MEDS: Ipratropium/Albuterol Sulfate 3 ML AMPUL.NEB INHALATION ×3 (07:28→19:28)
--- NOTE | 2017-10-25 08:05 | PN_ITS ---
Patient Problems: Active and Suspected Problems (Last Reviewed 10/03/17 @ 14:42 by Marisa Sanders) DVT (deep venous thrombosis) (Acute) Acute respiratory failure with hypoxia (Acute) Lactic acidosis (Acute) Elevated liver enzymes (Acute) Hypokalemia (Acute) Subjective: Patient did okay overnight. Patient has required 4 L nasal cannula to maintain appropriate saturations. No bleeding complications have been reported. Patient is reporting stiffness in asking to be taken out of the bed. Discussed with nursing staff and patient was unable to get to a bedside commode despite assistance of 4 nurses overnight. - Physical Exam General: Alert, Cooperative, - - Mild distress. Morbidly obese. HEENT: Atraumatic, PERRLA, EOMI, Normocephalic, - - No scleral icterus or injection noted. Posterior alopecia noted. Oral: Moist Mucosa, No Gingival or Mucosal Lesions/ Ulcerations Neck: Supple, No JVD, No Nodes Lungs: No rhonchi, No wheeze, No rales, Diminished, - - Symmetric expansion. No dullness to percussion. Cardiovascular: Normal S1, Normal S2, No murmurs, No rub noted, No Gallop, Tachycardic Abdomen: Bowel Sounds Present, Soft, Non Tender, Non-Distended, Obese Extremities: No clubbing, No cyanosis, Capillary Refill Less than 3 Seconds, Edema Skin: No rashes, No breakdown Musculoskeletal: No Tenderness to Palpation of Joints or Extremities Lymphatic: No Cervical, Supraclavicular, or Inguinal Adenopathy Neurological: Cranial nerves II-XII grossly intact, Neuro grossly intact, - - Globally decreased strength versus effort Psych/Mental Status: Anxious, Impulsive, Restless Vital Signs Temp Pulse Resp BP Pulse Ox 37.3 C H 117 H 20 H 110/57 L 93 10/25/17 06:40 10/25/17 07:09 10/25/17 06:40 10/25/17 06:40 10/25/17 06:40 Oxygen Flow Rate (L/min) 4 Oxygen Delivery Method Nasal Cannula Weight: 104.1 kg Body Mass Index (BMI) 44.4 Intake and Output for Last 24 Hours 10/23/17 10/24/17 10/25/17 23:59 23:59 23:59 Intake Total 694 / 694 1951 / 1951 530 / 530 Output Total 875 / 875 700 / 700 150 / 150 Balance -181 / -181 1252 / 1252 380 / 380 Laboratory Tests Past 24 Hrs 10/24/17 10/25/17 10/25/17 05:50 04:40 04:40 WBC 3.9 L RBC 1.91 L Hgb 7.2 L Hct 22.4 L MCV 117.3 H MCH 37.7 H MCHC 32.1 RDW 16.1 H RDW Differential 63.5 H Plt Count 279 MPV 12.3 H Absolute Neuts (auto) 1.5 L Absolute Lymphs (auto) 2.12 Total Counted 100 Neutrophils % (Manual) 37 L Band Neutrophils % 1 Lymphocytes % (Manual) 53 H Monocytes % (Manual) 6 Eosinophils % (Manual) 1 Myelocytes % 1 H Promyelocytes % 1 H Diff Path Review Reviewed Platelet Estimate ADEQUATE RBC Morphology N CHROM Anisocytosis 1+ Sodium 140 Potassium 3.8 Chloride 102 Carbon Dioxide 27.0 Anion Gap 11 BUN 18 Creatinine 0.49 L Estim Creat Clear Calc 34.91 Est GFR (MDRD) Af Amer 160 Est GFR (MDRD) Non-Af 132 BUN/Creatinine Ratio 37.0 H Glucose 110 H Calcium 8.5 Total Bilirubin 0.80 AST 79 H ALT 332 H Alkaline Phosphatase 42 L Total Protein 6.2 L Albumin 3.0 L Globulin 3.2 Albumin/Globulin Ratio 0.9 Medical Necessity - Tobacco Use Smoking Status: Never smoker Tobacco Use: Non-smoker Assessment/Plan All Active Problems (Last Reviewed 10/03/17 @ 14:42 by Marisa Sanders) DVT (deep venous thrombosis) (Acute) Acute respiratory failure with hypoxia (Acute) Lactic acidosis (Acute) Elevated liver enzymes (Acute) Hypokalemia (Acute) Non-Hodgkin lymphoma (Acute) Hypertrophy of breast (Acute) Personal history of malignant neoplasm of breast (Acute) URI (upper respiratory infection) (Acute) Abnormal surgical wound (Acute) Tachycardia (Acute) Macrocytic anemia (Acute) RECOMMENDATIONS: 1. Continue systemic anticoagulation 2. Agree with palliative measures moving forward 3. Wean oxygen as tolerated 4. Increase activity as tolerated 5. Agree with holding antibiotics and steroids IMPRESSIONS: 1. Acute hypoxic respiratory insufficiency secondary to probable PE CT scan of the chest was not consistent with acute pulmonary embolism, but patient has been found to have a DVT of the lower extremity. Patient did present with tachycardia and decreased saturations. Clinical suspicion for subclinical PE leading to acute hypoxic respiratory insufficiency. Patient is appropriately on Lovenox therapy. Would not recommend intubation as recovery would be highly unlikely given progressive cancer. Patient is refusing any noninvasive therapy such as BiPAP at this time. Okay to transfer to ECF with palliative goals 2. Metastatic breast cancer/stage IV high-grade diffuse B-cell lymphoma/ leukopenia/anemia of chronic disease CT scans show progression of disease despite aggressive stance by oncology. Will await oncology consult, but prognosis appears to be grim at this time. Patient may be better served by using comfort measures moving forward. Appreciate oncology opinion. 3. Hepatitis Clinical suspicion for elevation of liver enzymes secondary to hypoxic damage. Patient has responded well to hemodynamic support. 4. Morbid obesity/anxiety/advanced age Complicates care, management, recovery and prognosis. Code Visit Inpatient E&M: 41439 Subs Hosp L2
--- NOTE | 2017-10-25 08:47 | CASEMGMT ---
ANGELINE spoke with Petra at [facility] and she does not have PT/OT. ANGELINE told her SW will get the evaluations to her once they are done. ANGELINE reviewed Dr Jerez' note and noted she will not be getting treatment until she can tolerate it. ANGELINE spoke with patient and told her she will need to participate in therapy as best as she can. She said she will try. Carlota WOODALL MSW
[2017-10-25] MEDS: Magnesium Hydroxide 30 ML UDC PO (08:58)
[2017-10-25] MEDS: Glucerna Shake 120 ML LIQUID PO ×4 (09:00→21:09)
[2017-10-25] MEDS: Megestrol 40 MG Tablet PO ×4 (09:00→21:09)
[2017-10-25] MEDS: 0.9% Normal Saline 1,000 ML 75 ML IV ×2 (09:00→21:08)
[2017-10-25] MEDS: Furosemide 20 MG Tablet PO (09:00)
[2017-10-25] MEDS: Multivitamins,Therapeutic Tablet 1 TABLET PO (09:00)
[2017-10-25] MEDS: Famotidine 20 MG Tablet PO (09:00)
[2017-10-25] MEDS: Senna/Docusate Sodium 1 Tablet 2 TABLET PO ×2 (09:00→21:09)
--- NOTE | 2017-10-25 13:00 | PN_ITS ---
Patient Problems: Active and Suspected Problems (Last Reviewed 10/03/17 @ 14:42 by Marisa Sanders) DVT (deep venous thrombosis) (Acute) Acute respiratory failure with hypoxia (Acute) Lactic acidosis (Acute) Elevated liver enzymes (Acute) Hypokalemia (Acute) Subjective: Patient seen and examined. States shortness of breath and cough is improved. Notes improvement of lower extremity edema. Pre-CERT pending to SNF. Patient denies further current complaints. - Physical Exam General: Alert, Oriented x3, Cooperative HEENT: Atraumatic, PERRLA, EOMI, Normocephalic Neck: Supple, No JVD, Negative Carotid Bruits Lungs: Clear to auscultation, Diminished Cardiovascular: Regular Rhythm, Normal S1, Normal S2, No murmurs, Tachycardic Abdomen: Bowel Sounds Present, Soft, Non Tender, Non-Distended, Obese Extremities: No clubbing, No cyanosis, Edema - +2 BLLE Skin: No rashes, No breakdown, - - Right scapular area sebaceous cyst Musculoskeletal: No Tenderness to Palpation of Joints or Extremities Neurological: Cranial nerves II-XII grossly intact, Neuro grossly intact Psych/Mental Status: Anxious Vital Signs Temp Pulse Resp BP Pulse Ox 98.9 F 128 H 18 106/52 L 94 10/25/17 10:40 10/25/17 11:05 10/25/17 10:40 10/25/17 10:40 10/25/17 10:40 Oxygen Flow Rate (L/min) 6 Oxygen Delivery Method Nasal Cannula Weight: 229 lb 8.019 oz Body Mass Index (BMI) 44.4 Intake and Output for Last 24 Hours 10/23/17 10/24/17 10/25/17 23:59 23:59 23:59 Intake Total 694 / 694 1952 / 1952 1466 / 1466 Output Total 875 / 875 700 / 700 350 / 350 Balance -181 / -181 1252 / 1252 1116 / 1116 Laboratory Tests Past 24 Hrs 10/24/17 10/25/17 10/25/17 05:50 04:40 04:40 WBC 3.9 L RBC 1.91 L Hgb 7.2 L Hct 22.4 L MCV 117.3 H MCH 37.7 H MCHC 32.1 RDW 16.1 H RDW Differential 63.5 H Plt Count 279 MPV 12.3 H Diff Path Review Reviewed Sodium 140 Potassium 3.8 Chloride 102 Carbon Dioxide 27.0 Anion Gap 11 BUN 18 Creatinine 0.49 L Estim Creat Clear Calc 34.91 Est GFR (MDRD) Af Amer 160 Est GFR (MDRD) Non-Af 132 BUN/Creatinine Ratio 37.0 H Glucose 110 H Calcium 8.5 Total Bilirubin 0.80 AST 79 H ALT 332 H Alkaline Phosphatase 42 L Total Protein 6.2 L Albumin 3.0 L Globulin 3.2 Albumin/Globulin Ratio 0.9 Medical Necessity - Tobacco Use Smoking Status: Never smoker Tobacco Use: Non-smoker Assessment/Plan All Active Problems (Last Reviewed 10/03/17 @ 14:42 by Marisa Sanders) DVT (deep venous thrombosis) (Acute) Acute respiratory failure with hypoxia (Acute) Lactic acidosis (Acute) Elevated liver enzymes (Acute) Hypokalemia (Acute) Non-Hodgkin lymphoma (Acute) Hypertrophy of breast (Acute) Personal history of malignant neoplasm of breast (Acute) URI (upper respiratory infection) (Acute) Abnormal surgical wound (Acute) Tachycardia (Acute) Macrocytic anemia (Acute) 1. Acute hypoxic respiratory failure secondary acute PE-Patient was noted to have left lower extremity DVT. Initial read of CT of chest did not demonstrated PE however second opinion confirms bilateral PE. Continue weight- based Lovenox. Patient remains tachycardic intermittently. Continue supplemental oxygen to maintain O2 at or above 90%. Patient has refused BiPAP during admission. Pulmonary medicine consulted. 2. Acute left lower extremity DVT-continue therapeutic subcu Lovenox. 3. 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 Brock consulted. Patient has agreed to Hospice/Palliative consult given poor prognosis. Continue pain control with as needed regimen. 4. Lactic acidosis-resolved. Suspect secondary #1. 5. Anxiety-continue home Klonopin regimen. As needed Ativan. 6. Hepatitis-improving. Continue monitor. 7. Morbid obesity-encourage diet and lifestyle modifications. Nutrition consult. DVT prophylaxis-Lovenox Discharge planning: Pre-CERT pending to SNF with palliative care consult. This patient was seen by KILEY Meadows under the supervision of Dr. Ferrari.
[2017-10-25] MEDS: Metoprolol Tartrate 25 MG Tablet PO ×2 (13:32→22:24)
--- NOTE | 2017-10-25 15:34 | CASEMGMT ---
ANGELINE spoke with Petra at [facility]. Their recommendation would be to take patient superintendent terminal intermediate level of care. This would be private pay. ANGELINE faxed PT/OT evaluations to [facility] and left Petra a voice mail asking them to re-consider taking patient skilled. Await their return call. Carlota WOODALL MSW
[2017-10-26] VITALS (20 sets, daily range): BP systolic 99–134; BP diastolic 49–67; PULSE 98–147; RESP 20–28; TEMP 36.9–37.5; O2SAT 91–96
[2017-10-26] MEDS: clonazePAM 0.5 MG Tablet PO ×2 (05:03→13:24)
[2017-10-26] MEDS: Enoxaparin 100 MG/ML Syringe SC ×2 (05:04→17:32)
[2017-10-26] MEDS: 0.9% NaCl Peripheral Flush Adult/Peds IV ×2 (06:29→17:32)
[2017-10-26 06:54] LABS: Hemoglobin 6.7 g/dl (12.0-15.0); Mean Corp Hgb Conc 31.9 g/gl (32-36); Mean Corpuscular Hgb 36.2 pg (27.0-32.0); Mean Corpuscular Volume 113.5 fL (81-99); Mean Platelet Vol. 12.3 fl (6.2-12.0); Platelet Count 304 K/mm3 (150-450); RBC Distribution Width CV 16.8 % (11.6-14.6); RBC Distribution Width SD 68.8 fl (35.1-43.9); Red Blood Count 1.85 M/mm3 (4.2-5.4)
[2017-10-26] MEDS: Ipratropium/Albuterol Sulfate 3 ML AMPUL.NEB INHALATION ×4 (07:00→19:50)
[2017-10-26 07:02] LABS: Anion Gap 9 (5-15); BUN 15 mg/dL (7-18); BUN/Creat Ratio 40.9 RATIO (10-20); Calcium,Total 8.6 mg/dL (8.5-10.1); Chloride 104 mmol/L (98-107); Creatinine, Serum 0.37 mg/dL (0.55-1.02); EST Glomerular Filtration Rate 182 mL/min (>60); Est Glom Filt Rate - Afr Amer 221 mL/min (>60); Estimated Creatinine Clearance 34.91 ml/min; Glucose 94 mg/dL (74-106); Potassium 3.9 mmol/L (3.5-5.1); Sodium Level 139 mmol/L (136-145)
[2017-10-26 07:15] LABS: Scan Indicated on CBC? Y/N YES- FLAGS NOTED
[2017-10-26 07:16] LABS: Differential Comment SCANNED
--- NOTE | 2017-10-26 08:55 | CASEMGMT ---
ANGELINE spoke with Petra at [facility]. They would take patient skilled, but she would go to a intermediate frame tender care bed and not their TCU unit. They are not sure how long she will be able to do therapy and feel she will need a intermediate frame tender bed. ANGELINE will talk with family and let them know that as long as patient is doing therapy and progressing patient's stay at [facility] will be covered under Medicare. However, should she stop therapy or stop progressing with therapy they will have to private pay to keep her at [facility]. The cost for a private intermediate frame tender bed is $250 per day and a semi-private bed would be $245 per day. Plan: Possibly [facility] if family is in agreement with above stated terms. Carlota WOODALL MSW
[2017-10-26] MEDS: Metoprolol Tartrate 25 MG Tablet PO (09:15)
[2017-10-26] MEDS: Multivitamins,Therapeutic Tablet 1 TABLET PO (09:16)
[2017-10-26] MEDS: oxyCODONE 5 MG Tablet PO ×3 (09:16→17:32)
[2017-10-26] MEDS: Furosemide 20 MG Tablet PO (09:16)
[2017-10-26] MEDS: Famotidine 20 MG Tablet PO (09:16)
[2017-10-26] MEDS: Glucerna Shake 120 ML LIQUID PO ×3 (09:16→17:32)
[2017-10-26] MEDS: Senna/Docusate Sodium 1 Tablet 2 TABLET PO (09:16)
[2017-10-26] MEDS: Megestrol 40 MG Tablet PO ×3 (09:16→17:32)
--- NOTE | 2017-10-26 09:45 | CASEMGMT ---
Addendum entered by Carlota Majano 10/26/17 10:29: ANGELINE spoke with patient's daughter again as she had questions about finances. ANGELINE gave her a Medicaid application to complete. She was tearful while talking about her mom. SW provided emotional support. Plan: [facility] under skilled level of care. Carlota INFANTE Original Note: ANGELINE spoke with patient's daughter, Angy about [facility]'s thoughts. She said they really want to try the therapy and if she cannot do it they will go from there. ANGELINE did give her costs at [facility]. She asked if patient gets 20 days with Medicare. ANGELINE told her that is not a given. ANGELINE told her if patient is participating and progressing with therapy her stay will be covered under Medicare, but as soon as that stops she will switch to self pay. She verbalized understanding. ANGELINE let Petra at [facility] know this information. Plan: [facility] under skilled level of care Carlota INFANTE
[2017-10-26] MEDS: 0.9% Normal Saline 1,000 ML 75 ML IV (11:15)
--- NOTE | 2017-10-26 11:45 | PN_ITS ---
Patient Problems: Active and Suspected Problems (Last Reviewed 10/03/17 @ 14:42 by Marisa Sanders) Acute respiratory failure with hypoxia (Acute) Lactic acidosis (Acute) Elevated liver enzymes (Acute) Hypokalemia (Acute) Subjective: Patient continues to report body stiffness. Patient denies any bleeding complications such as epistaxis, hemoptysis, melena or hematochezia. Patient does report knee pain bilaterally. Patient was moved to the edge of the bed by physical therapy yesterday. Oxygenation continues to improve. Patient denies any dyspnea at rest. - Physical Exam General: Alert, Oriented x3, Cooperative, No apparent distress, - - Speaking in full sentences. Appears older than stated age. HEENT: Atraumatic, PERRLA, EOMI, Normocephalic, - - Cephalad alopecia noted Oral: Moist Mucosa, No Gingival or Mucosal Lesions/ Ulcerations Neck: Supple, No JVD, No Nodes, Trachea Midline Lungs: No rhonchi, No wheeze, No rales, Diminished, - - Fair patient effort Cardiovascular: Regular Rhythm, Normal S1, Normal S2, No murmurs, No rub noted, No Gallop, Tachycardic Abdomen: Bowel Sounds Present, Soft, Non Tender, Non-Distended, Obese Extremities: No clubbing, No cyanosis, Capillary Refill Less than 3 Seconds, Edema Skin: - - No significant change compared to previous Musculoskeletal: Tenderness - Palpation of bilateral knees Lymphatic: No Cervical, Supraclavicular, or Inguinal Adenopathy Neurological: Cranial nerves II-XII grossly intact, Neuro grossly intact, - - No change from previous Psych/Mental Status: Flat Affect, Restless Vital Signs Temp Pulse Resp BP Pulse Ox 36.9 C 99 20 H 126/61 H 94 10/26/17 09:04 10/26/17 11:09 10/26/17 10:54 10/26/17 09:04 10/26/17 09:04 Oxygen Flow Rate (L/min) 3 Oxygen Delivery Method Nasal Cannula Weight: 103.7 kg Body Mass Index (BMI) 44.4 Intake and Output for Last 24 Hours 10/24/17 10/25/17 10/26/17 23:59 23:59 23:59 Intake Total 1951 / 1951 2957 / 2957 352 / 352 Output Total 700 / 700 725 / 725 125 / 125 Balance 1252 / 1252 2232 / 2232 227 / 227 Laboratory Tests Past 24 Hrs 10/26/17 10/26/17 06:25 06:25 WBC 3.0 L RBC 1.85 L Hgb 6.7 L Hct 21.0 L MCV 113.5 H MCH 36.2 H MCHC 31.9 L RDW 16.8 H RDW Differential 68.8 H Plt Count 304 MPV 12.3 H Differential Comment SCANNED Sodium 139 Potassium 3.9 Chloride 104 Carbon Dioxide 26.0 Anion Gap 9 BUN 15 Creatinine 0.37 L Estim Creat Clear Calc 34.91 Est GFR (MDRD) Af Amer 221 Est GFR (MDRD) Non-Af 182 BUN/Creatinine Ratio 40.9 H Glucose 94 Calcium 8.6 Medical Necessity - Tobacco Use Smoking Status: Never smoker Tobacco Use: Non-smoker Assessment/Plan All Active Problems (Last Reviewed 10/03/17 @ 14:42 by Marisa Sandres) DVT (deep venous thrombosis) (Acute) Acute respiratory failure with hypoxia (Acute) Lactic acidosis (Acute) Elevated liver enzymes (Acute) Hypokalemia (Acute) Non-Hodgkin lymphoma (Acute) Hypertrophy of breast (Acute) Personal history of malignant neoplasm of breast (Acute) URI (upper respiratory infection) (Acute) Abnormal surgical wound (Acute) Tachycardia (Acute) Macrocytic anemia (Acute) RECOMMENDATIONS: 1. Continue systemic anticoagulation 2. Agree with palliative measures moving forward 3. Wean oxygen as tolerated 4. Increase activity as tolerated 5. Agree with holding antibiotics and steroids IMPRESSIONS: 1. Acute hypoxic respiratory insufficiency secondary to probable PE CT scan of the chest was not consistent with acute pulmonary embolism, but patient has been found to have a DVT of the lower extremity. Patient did present with tachycardia and decreased saturations. Clinical suspicion for subclinical PE leading to acute hypoxic respiratory insufficiency. Patient is appropriately on Lovenox therapy. Patient appears to be responding to systemic anticoagulation. No signs or symptoms of complications with bleeding. Would not recommend steroids or antibiotics at this time. 2. Metastatic breast cancer/stage IV high-grade diffuse B-cell lymphoma/ leukopenia/anemia of chronic disease CT scans show progression of disease despite aggressive stance by oncology. Will await oncology consult, but prognosis appears to be grim at this time. Patient may be better served by using comfort measures moving forward. Appreciate oncology opinion. 3. Hepatitis Clinical suspicion for elevation of liver enzymes secondary to hypoxic damage. Patient has responded well to hemodynamic support. 4. Morbid obesity/anxiety/advanced age Complicates care, management, recovery and prognosis. Code Visit Inpatient E&M: 81164 Subs Hosp L2
--- NOTE | 2017-10-26 12:18 | PCM.EXTCARCO ---
- Diet 10/23/17 17:24 Diet: Cardiac/Low Cholesterol Food consistency:: Regular Liquid Consistency:: Regular/Thin - Routine Orders/Code Status Enema Type: Fleetz Enema Frequency: Daily PRN Suppository Type: Dulcolax 10mg Suppository Frequency: Daily PRN O2 Liters per Minute: 2-6 O2 Frequency: Continuous Keep PO Greater than or Equal to (%): 90 Routine Lab Work: CBC - Daily for 3 days. Then BMP and CBC Q Week. 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 Current Visit: No (8) Abnormal surgical wound Status: Resolved Current Visit: No (9) DVT (deep venous thrombosis) Status: Acute Comment: with acute PE Current Visit: Yes (10) Hypertrophy of breast Status: Chronic Current Visit: No (11) Macrocytic anemia Status: Chronic Current Visit: No (12) Non-Hodgkin lymphoma Status: Acute Current Visit: No (13) Personal history of malignant neoplasm of breast Status: Chronic Current Visit: No (14) Tachycardia Status: Acute Current Visit: Yes (15) Brain metastasis Status: Chronic Current Visit: No (16) Breast cancer, right breast Status: Chronic Current Visit: No (17) 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 Current Visit: No (18) Chronic pain Status: Chronic Current Visit: No (19) ER+ (estrogen receptor positive status) Status: Chronic Current Visit: No (20) Mass of neck Status: Chronic Comment: 3.5 cm soft tissue mass posterior neck/upper back 6 cm soft tissue mass right posterior neck/upper back Current Visit: No (21) Multiple skin nodules Status: Chronic Current Visit: No (22) Pancytopenia Status: Chronic Current Visit: No (23) Peripheral edema Status: Chronic Current Visit: No (24) Secondary malignant neoplasm of lung Status: Chronic Current Visit: No - Allergies/Procedures Done in Hospital Allergies/Adverse Reactions: Allergies Latex, Natural Rubber Allergy (Severe, Verified 10/03/17 14:43) Hives POWDER inside the latex that causes reaction, not the latex itself aloe vera Adverse Reaction (Severe, Verified 10/03/17 14:43) Rash egg Adverse Reaction (Severe, Verified 10/03/17 14:43) Diarrhea hydrocodone bitartrate [From Vicodin] Adverse Reaction (Severe, Verified 10/03/17 14:43) Vomiting morphine Adverse Reaction (Severe, Verified 10/03/17 14:43) Other DECREASED BP TAPE Adverse Reaction (Mild, Uncoded 10/03/17 14:43) redness THIN SKIN Procedures: None - Type of Care/Length of Stay Estimated LOS: Convalescent Care Less Than 30 days Type of Care Needed: Skilled Rehab Potential: Poor Prognosis: Poor - Additional Orders/Day of Discharge H&P will serve as current which was dated: 10/23/17 Day of Discharge: 10/26/17 - Dietary and Speech Recommendations Dietitian Recommendations/Changes: Suggest liberalize diet to no added salt. Will add glucerna shake 120 ml 4 x per day on medpass. - Follow Up Care Primary Care Physician: Alex Vizcarra MD [Primary Care Provider] - Please Follow Up With: Alex Vizcarra MD When: 1 Week Please Follow Up With: Ciaran Brock MD When: As scheduled Please Follow Up With: Jose Angel Mcintyre DO When: Please call for palliative/hospice consult at facility
--- NOTE | 2017-10-26 12:38 | PCM.DC.SUM ---
<Kelly Santana - Last Filed: 10/26/17 12:55> Discharge Date and Diagnosis Date of Admission: 10/23/17 Date of Discharge: 10/26/17 - Primary Discharge Diagnosis Active and Suspected Problems (Last Reviewed 10/03/17 @ 14:42 by Marisa Sanders) 1. Acute hypoxic respiratory failure secondary to acute pulmonary embolism 2. Acute PE/DVT 3. Metastatic breast cancer 4. Lactic acidosis, secondary to #1-resolved. 5. 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) Pancytopenia (Chronic) Elevated liver enzymes (Chronic) Chronic leukopenia (Chronic) Chronic anemia (Chronic) 1 Unit PRBC Mass of neck (Chronic) 3.5 cm soft tissue mass posterior neck/upper back 6 cm soft tissue mass right posterior neck/upper back Breast cancer, right breast (Chronic) Secondary malignant neoplasm of lung (Chronic) Hypertrophy of breast (Chronic) Personal history of malignant neoplasm of breast (Chronic) 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 No evidence of large focal consolidation. Nodular density overlying the left lateral lung concerning for metastatic disease as previously noted. Electronically Signed: Luis Block DO at 11:35 EDT , Service support , Chest CTA 10/23/17 11:54 IMPRESSION: 1. Multiple pulmonary metastases, increased in size compared to the prior study. 2. Multiple soft tissue metastases, new or increased compared to the prior study. 3. New right retroperitoneal nodule, presumed metastatic node. 4. New left renal or retroperitoneal lesion, suspicious for metastasis. 5. Stable hepatic cyst. 6. Stable thyroid lesion. Electronically Signed: Coretta Conklin MD at 17:11 EDT Tel , Service support , ADDENDUM: 10/25/17 0813 Abdomen/Pelvis CT 10/23/17 15:21 IMPRESSION: 1. Multiple pulmonary metastases, increased in size compared to the prior study. 2. Multiple soft tissue metastases, new or increased compared to the prior study. 3. New right retroperitoneal nodule, presumed metastatic node. 4. New left renal or retroperitoneal lesion, suspicious for metastasis. 5. Stable hepatic cyst. 6. Stable thyroid lesion. Electronically Signed: Coretta Conklin MD at 17:12 EDT Tel , Service support , Brain CT 10/23/17 15:21 IMPRESSION: 1. No acute process. No evidence of recurrent mass. 2. Postsurgical changes in the left parietal lobe. Electronically Signed: Coretta Conklin MD at 16:40 EDT Tel , Service support , Dr. Landry- Pulmonary Dr. Brock- Oncology Operations: None Procedures: None Summary of Care Provided: The patient is a 77 year old F admitted 10/23/2017 due to worsening dyspnea and lower extremity edema. 1. Acute hypoxic respiratory failure secondary acute PE-Patient was noted to have left lower extremity DVT. Initial read of CT of chest did not demonstrated PE however second opinion confirms bilateral PE. Continue weight-based Lovenox. Continue supplemental oxygen to maintain O2 at or above 90%. Patient has refused BiPAP during admission. 2. Acute left lower extremity DVT-continue therapeutic subcu Lovenox. 3. Metastatic breast cancer, metastasis to lungs, lymph nodes, soft tissues, brain. Dr. Brock consulted. Patient has agreed to Hospice/Palliative consult given poor prognosis. Continue pain control with as needed regimen. Tamoxifen discontinued per oncology due to contraindication with DVT and disease progression despite high-dose. Per oncology, patient is not a candidate for systemic chemotherapy. Palliative/hospice consult upon admission to SNF. 4. Lactic acidosis-resolved. Suspect secondary #1. 5. Anxiety-continue home Klonopin regimen. 6. Hepatitis-improved. 7. Morbid obesity-encourage diet and lifestyle modifications. A. Acute on chronic macrocytic anemia, anemia of chronic disease-recent baseline hemoglobin 7-8. Patient given 1 unit PRBC prior to discharge for hemoglobin of 6.7. Monitor CBC daily times 3 days then weekly. General: Alert, Oriented x3, Cooperative HEENT: Atraumatic, PERRLA, EOMI, Normocephalic Neck: Supple, No JVD, Negative Carotid Bruits Lungs: Clear to auscultation, Diminished Cardiovascular: Regular Rhythm, Normal S1, Normal S2, No murmurs, Tachycardic Abdomen: Bowel Sounds Present, Soft, Non Tender, Non-Distended, Obese Extremities: No clubbing, No cyanosis, Edema - +2 BLLE Skin: No rashes, No breakdown, - - Right scapular area sebaceous cyst Musculoskeletal: No Tenderness to Palpation of Joints or Extremities Neurological: Cranial nerves II-XII grossly intact, Neuro grossly intact Psych/Mental Status: Anxious Patient seen exam prior to discharge. Physical assessment as noted above. Patient is stable for discharge to SNF with palliative/hospital consult. This patient was seen by KILEY Meadows under the supervision of Dr. Manuel. Home Medications: Medications to take at Discharge Acetaminophen [Tylenol] 650 mg PO QHS PRN 11/17/16 Albuterol Aerosols [Ventolin Aerosols] 2.5 mg INHALATION Q6H PRN PRN 09/08/17 Multivitamin [Multiple Vitamins] 1 each PO DAILY 09/08/17 Megestrol [Megace] 40 mg PO 4X/DAY #160 tab 10/03/17 Furosemide [Lasix] 20 mg PO DAILY 10/23/17 Clonazepam [Klonopin] 0.5 mg PO Q8H #6 tab 10/26/17 Enoxaparin [Lovenox] 100 mg SC Q12H #0 syringe 10/26/17 Ipratropium/Albuterol Sulfate [Duoneb] 3 ml INHALATION Q4HWA.RT ampul.neb 10/26/17 Metoprolol Tartrate [Lopressor (beta sadie)] 25 mg PO BID tablet 10/26/17 Oxycodone [Oxyir] 5 mg PO Q4H PRN PRN #10 tab 10/26/17 Psyllium [Metamucil] 1 packet PO DAILY PRN PRN packet 10/26/17 Senna/Docusate Sodium [Senokot-S] 2 tablet PO BID tablet 10/26/17 Following Prescrptions Were Given to Patient: Oxycodone [Oxyir] 5 mg PO Q4H PRN PRN #10 tab PRN Reason: Moderate Pain (pain scale 4-5) Clonazepam [Klonopin] 0.5 mg PO Q8H #6 tab Primary Care Physician: Alex Vizcarra MD [Primary Care Provider] - Please Follow Up With: Alex Vizcarra MD When: 1 Week Please Follow Up With: Ciaran Brock MD When: As scheduled Please Follow Up With: Jose Angel Mcintyre DO When: Please call for palliative/hospice consult at facility Disposition: Senior Living facility Minutes spent on discharge:: 35 Patient Condition:: Guarded Medical Necessity - Tobacco Use Smoking Status: Never smoker Tobacco Use: Non-smoker Meaningful Use Info Meaningful Use Diagnoses (Choose all that apply): VTE - VTE Anticoag overlap given w/in hospital stay or rx'd at dc?: Yes Pt receive overlap for 5 days?: Yes <Lindsey Manuel E - Last Filed: 10/26/17 14:52> Discharge Date and Diagnosis - Secondary Discharge Diagnosis Chronic Problems (Last Reviewed 10/03/17 @ 14:42 by Marisa Sanders) 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) Pancytopenia (Chronic) Elevated liver enzymes (Chronic) Chronic leukopenia (Chronic) Chronic anemia (Chronic) 1 Unit PRBC Mass of neck (Chronic) 3.5 cm soft tissue mass posterior neck/upper back 6 cm soft tissue mass right posterior neck/upper back Breast cancer, right breast (Chronic) Secondary malignant neoplasm of lung (Chronic) Hypertrophy of breast (Chronic) Personal history of malignant neoplasm of breast (Chronic) 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 Patient has complicated past medical history and she presented to the ED because of worsening shortness of breath and lower extremity edema. CTA chest revealed peripheral bilateral pulmonary emboli specifically in the lower lobes as well as multiple pulmonary metastasis. Also, she was found to have acute DVT of the left posterior tibial vein. She was treated with subcu therapeutic Lovenox twice daily. This patient had a history of metastatic breast cancer with metastases to lung, lymph nodes, soft tissue and brain. Oncology consulted and recommended palliative care given her poor prognosis. According to oncology, patient is not a candidate for chemotherapy. CT scan abdomen and pelvis with IV contrast revealed multiple pulmonary metastasis, multiple subcu metastasis, new right retroperitoneal nodule presumed to be metastatic, new left renal orthopnea or lesion which is also suspicious for metastasis. Patient was treated with pain medication as needed. Patient was found to have acute on chronic anemia which is probably anemia of chronic disease. Hemoglobin came down as low as 6.7 g/dL. She received 1 unit of packed RBCs before discharge. After discussion with the patient herself and her family, decision was made to proceed with palliative care and eventually hospice which will be done at the half-way facility. Patient discharged to half-way facility in stable condition with poor prognosis, discharged on OxyIR as needed for pain, discharged on Lovenox twice daily for acute PE/DVT, continued on her chronic home medication without any changes, recommended follow-up with PCP in 1 week, follow-up with oncology as scheduled and hospice and palliative care team will be consulted at the half-way facility. - Physical Exam General: Alert, Oriented x3, Cooperative, minimally short of breath. HEENT: Atraumatic, PERRLA, EOMI. Neck: Supple, No JVD, Negative Carotid Bruits, Trachea Midline, Thyroid Normal. Lungs: Decreased breath sounds bilateral, scattered rhonchi, No wheeze, No rales. Cardiovascular: Regular rate, Regular Rhythm, Normal S1, Normal S2, PMI Normal. Abdomen: Bowel Sounds Present, Soft, Non Tender, Non-Distended, No Hepato-splenomegaly. Extremities: No clubbing, No cyanosis, No edema Skin: No rashes, No breakdown Neurological: Neuro grossly intact This note was generated with [employer] dictation software. It may contain incorrect words, spelling, and punctuation that were not noted in checking the note before signing. Disposition: Senior Living facility Meaningful Use Info Meaningful Use Diagnoses (Choose all that apply): VTE - VTE Anticoag overlap given w/in hospital stay or rx'd at dc?: Yes Pt receive overlap for 5 days?: Yes Code Visit Inpatient E&M: 21305 Disch Hosp
--- NOTE | 2017-10-26 13:10 | CASEMGMT ---
Addendum entered by Carlota Majano 10/26/17 14:02: Per RN patient will not be ready for d/c until maybe around 7p. ANGELINE completed ambulance form and asked tamale machine feeder to set up transport when patient is able to go and to notify [place] as well as family. ANGELINE called Petra at [facility] and left her a voice mail letting her know above. Plan: d/c to [facility] under skilled level of care on a convalescent stay. Carlota INFANTE Original Note: ANGELINE faxed orders to [facility] and completed convalescent on HENS. Patient is set to get a unit of blood. ANGELINE will find out when this is happening so SW can arrange transport. Plan: [facility] under skilled level of care on a convalescent stay. Carlota WOODALL MSW
--- NOTE | 2017-10-26 16:21 | NURSING ---
Called report to Carlota JEAN at [facility]
[2017-10-26] MEDS: LORazepam 2 MG/ML Syringe 0.5 MG IV (17:32)
== END 2017-10-26 20:00 | disposition skilled nursing facility (03) | DRG 175 ==
LOC: ED 11:36 → PCU 17:33
PROVIDERS: Nurse Practitioner Family; Admitting Provider Family Medicine; Emergency Provider Emergency Medicine; Family Provider Family Medicine; PCP Family Medicine; Visit Provider Hospitalist
DX: I26.99 Other pulmonary embolism without acute cor pulmonale (principal); J96.01 Acute respiratory failure with hypoxia; Z68.41 Body mass index [BMI] 40.0-44.9, adult; C83.30 Diffuse large B-cell lymphoma, unspecified site; E87.2 Acidosis; C78.00 Secondary malignant neoplasm of unspecified lung; C79.31 Secondary malignant neoplasm of brain; C77.1 Secondary and unspecified malignant neoplasm of intrathoracic lymph nodes; I82.442 Acute embolism and thrombosis of left tibial vein; Z17.0 Estrogen receptor positive status [ER+]; E66.01 Morbid (severe) obesity due to excess calories; C50.911 Malignant neoplasm of unspecified site of right female breast; K75.9 Inflammatory liver disease, unspecified; F41.9 Anxiety disorder, unspecified; D63.8 Anemia in other chronic diseases classified elsewhere; D53.9 Nutritional anemia, unspecified
CPT/HCPCS: 36415; 70470; 71045; 71275; 74177; 80048; 80053; 83605; 83735; 83880; 84100; 84484; 85025; 85027; 85610; 85730; 86850; 86900; 86920; 86922; 93005; 93970; 94002; 94640; 97110; 97162; 97166; 97530; 97802; 99152; 99251; 99285; J7030; P9016; Q9967; A4216; G0463; J1940